=== PATIENT | female | born 1950 | race Caucasian/White ===

== ENCOUNTER 2017-06-01 20:33 | Inpatient (IN) | payer MEDICARE, OTHER ==
[2017-06-01 21:40] VITALS: BP 178/83; PULSE 99; TEMP 99.7; O2SAT 92
[2017-06-01] MEDS ORDERED: ALUMINUM/MAGNESIUM/SIMETH 30 ML CUP PO PRN (22:15)
[2017-06-01] MEDS ORDERED: diphenhydrAMINE HCL 50 MG CAP - HS PRN PO (22:15)
[2017-06-01] MEDS ORDERED: diphenhydrAMINE HCL 50 MG/ML VIAL - HS PRN IM (22:15)
[2017-06-01] MEDS ORDERED: MAGNESIUM HYDROXIDE SUSP 30 ML CUP PO PRN (22:15)
[2017-06-01] MEDS ORDERED: ACETAMINOPHEN 325 MG TAB PO PRN (22:15)
[2017-06-01] MEDS ORDERED: ENALAPRILAT 1.25 MG/ML VIAL IV PUSH PRN (22:30)
[2017-06-02] MEDS: ENOXAPARIN SODIUM 100 MG/ML SYRINGE SQ SCH ×3 (04:09→20:32)
[2017-06-02 05:57] VITALS: BP 158/71; PULSE 96; RESP 18; TEMP 97.2; O2SAT 97
[2017-06-02] MEDS: CALCIUM CARBONATE 1.25 GM (CA 500 MG) TAB PO SCH ×2 (09:00→19:57)
[2017-06-02] MEDS: DILTIAZEM-CD 240 MG CAP ER PO SCH (09:00)
[2017-06-02] MEDS: QUEtiapine FUMARATE 25 MG TAB PO SCH ×2 (09:00→19:57)
[2017-06-02 11:21] LABS: BICARBONATE 27.6 MEQ/L (21.0-32.0); CREATININE 0.39 MG/DL (0.50-1.00)
--- NOTE | 2017-06-02 11:34 | HHI.HP ---
Provisional Diagnosis Admission Date Jun 01, 2017 at 21:40 [place] I. Unspecified mood disorder Certification of Person's Competence To Provide Express and Informed Consent I have personally examined Concha Monroy , a person being served at [facility] on, Jun 02, 2017 11:15. Express and informed consent means consent voluntarily given in writing, by a competent person, after sufficient explanation and disclosure of the subject matter involved to enable the person to make a knowing and willful decision without any element of force, fraud, deceit, duress, or other form of constraint or coercion. This person is 18 years of age or older, is not now known to be incompetent to consent to treatment with a guardian advocate, and does not have a health care surrogate or proxy currently making medical treatment decisions. I have found this person to be one of the following: [] Competent to provide express and informed consent, as defined above, for voluntary admission to this facility and is competent to provide express and informed consent for treatment. He/she has the consistent capacity to make well reasoned, willful, and knowing decisions concerning his or her medical or mental health treatment. The person fully and consistently understands the purpose of the admission for examination/placement and is fully capable of personally exercising all rights assured under [place] [x] Incompetent to provide express and informed consent to voluntary admission, and this is incompetent to provide express and informed consent to treatment. The person must be transferred to involuntary status and a petition for a guardian advocate filed with the Circuit Court. [] Refusing to provide express and informed consent to voluntary admission but is competent to provide express and informed consent for treatment. The person must be discharged or transferred to involuntary status. Form shall be completed within 24 hours of a person's arrival at the receiving facility and filed in the clinical record of each person: 1. Admitted on a voluntary basis 2. Permitted to provide express and informed consent to his/her own treatment 3. Allowed to transfer from involuntary to voluntary status 4. Prior to permitting a person to consent to his or her own treatment after having been previously found incompetent to consent to treatment. History of Present Illness Capacity: Lacks Capacity HPI Patient is a 67-year-old woman, unclear if for single, unemployed, unknown of domiciled with family friends or living alone, with an unclear past psychiatric history, with a past medical history significant for hypertension, recent altered mental status which she was admitted to the medical unit at [facility] after patient's daughter found patient confused and had subsequent workup and cleared medically which during admission had reported feeling depressed with thoughts of wanting to end her life and was Santos acted for the same. He should was discharged to the [facility] but return back to the ED as patient refused to walk to the facility from the vehicle. Patient was then transferred to the inpatient medical/psychiatry unit here at [facility] for further evaluation and management. As per medical records from patient's recent hospitalization patient was admitted to [facility] for altered mental status which patient had a cardiology and neurology consulted at that time and cleared by them. Patient also had brain CT done which showed chronic left striatocapsular lacunar infarct and small chronic left cerebellar infarcts. Patient also had MR angio neck, MR brain, MRA angio head which results of those studies were not found in documents. Patient was found lying in hospital bed noted to have psychomotor retardation, speech latency, disorganized on interview , although was able to answer concrete questioning. Patient states that she is currently in [place], alert and oriented only to person at this time. Patient reports that she is living with the person named Giorgio which is her significant other than later stated that he is in group home. Patient also wasn't able to mention that she has 2 children, Ayleen and Jose Luis whom she cannot remember their age. Patient was not able to continue to provide any significant or relevant history she is a poor historian, noted to be confused and at times making nonsensical statements. At this time patient is unable to express further regarding to her depression or having suicidal ideations at this time due to her disorganization. Family psychiatric history: Unable to assess this patient at this time is a poor historian and disorganized Past psychiatric history: Unable to assess this patient at this time is a poor historian and disorganized Substance use history: Unable to assess this patient at this time is a poor historian and disorganized Past medical history: Hypertension as per patient, as per record previous CVA as noted in head CT Allergies: Unknown as patient was unable to provide history Social history: Patient reports be unemployed, single with significant other named Giorgio although this information may not be accurate due to patient's current confusion Review of Systems Except as stated in HPI: all other systems reviewed are Neg Past Psych History Psychological trauma history Unable to assess at this time due to the patient's confusion and disorganization Violence risk - others (6 mos) Low Violence risk - self (6 mos) Elevated due to recent report patient having thoughts of wanting to end her life Substance Abuse History Drugs/Alcohol past 12 months Unable to assess at this time due to the patient's confusion and disorganization Past Family Social History Current Medications Medications (Trade) Dose Ordered Sig/Tru Route Start Time Stop Time Status Last Admin (Ativan) 0.5 mg Q12H PRN PO 06/01/17 22:15 (Ativan Inj) 0.5 mg Q12H PRN IM 06/01/17 22:15 (Atarax) 50 mg Q6H PRN PO 06/01/17 22:15 (Benadryl) 50 mg Q6H PRN PO 06/01/17 22:15 (Benadryl Inj) 50 mg Q6H PRN IM 06/01/17 22:15 (Benadryl) 50 mg HS PRN PO 06/01/17 22:15 (Benadryl Inj) 50 mg HS PRN IM 06/01/17 22:15 (Tylenol) 650 mg Q4H PRN PO 06/01/17 22:15 (Milk Of Magnesia Liq) 30 ml DAILY PRN PO 06/01/17 22:15 (Mag-Al Plus Susp Liq) 30 ml Q6H PRN PO 06/01/17 22:15 (Oscal) 500 mg BID PO 06/02/17 09:00 (Cardizem Cd) 240 mg DAILY PO 06/02/17 09:00 (Lovenox Inj) 100 mg Q12H SQ 06/01/17 23:00 06/02/17 04:09 (SEROquel) 50 mg BID PO 06/02/17 09:00 (Vasotec Inj) 1.25 mg Q6H PRN IV PUSH 06/01/17 22:30 Family Psych History Unable to assess this patient at this time is a poor historian and disorganized Social History Patient reports be unemployed, single with significant other named Edward although this information may not be accurate due to patient's current confusion Patient's Strengths (min. 2) Verbal and communicative Physical Exam Patient not noted to be in acute distress, no gross motor abnormalities, no tremors or EPS, noted psychomotor retardation. Vital Signs Vital Signs Date Time Temp Pulse Resp B/P (MAP) Pulse Ox O2 Delivery O2 Flow Rate FiO2 06/02/17 05:57 97.2 96 18 158/71 (100) 97 I/O 06/02/17 06/02/17 06/03/17 08:00 16:00 00:00 Intake Total 0 ml Balance 0 ml Lab Results Test 06/02/17 10:30 Mental Status Examination Appearance: Disheveled Orientation: Person Speech: Hesitant, Slow, Other (poverty of speech) Fund of Knowledge: Poor Attention and Concentration: Inadequate Memory: Impaired Mood: Other Affect: Flat Thought Process & Associations: Disorganized, Other (concrete) Thought Content: Thought blocking, Other (nonsensical statements at times) Hallucination Type: Other (unable to assess at this time due to patient's confusion) Delusion Type: Other (unable to assess at this time due to patient's confusion) Suicidal Ideation: Yes (endorsed previously by this time unable to assess current suicidal ideations due to patient's confusion) Suicidal Plan: No Suicidal Intention: No Homicidal Ideation: No Homicidal Plan: No Homicidal Intention: No Insight: Poor Judgment: Poor Assessment & Plan Problem List: (1) Unspecified mood [affective] disorder ICD Codes: F39 - Unspecified mood [affective] disorder Assessment & Plan Estimated LOS: 5-7 days. Patient is a 67-year-old woman who with an unclear past psychiatric history, recently admitted to the medical unit at [facility] for altered mental status, had medical workup with no significant findings aside from old cerebral infarcts on imaging, was transferred to the inpatient psychiatry unit for further evaluation and management. Patient this time continues to be noted to be confused alert and oriented only to person, very concrete thinking making nonsensical statements at disorganized. Will order EEG consult neurology as well as hospitalist consult to assess for possible medical etiologies contributing to her altered mental status. Labs pending. Continue quetiapine 50 mg by mouth twice a day. Collateral information pending from family. Petition for involuntary hospitalist restarted, will request second opinion. Discharge planning in progress Discharge Planning Patient to be discharged back to her residence once medically and psychiatrically cleared Chucky Resendiz MD Jun 02, 2017 11:33
[2017-06-02 11:36] LABS: CHOLESTEROL/ HDL RATIO 5.31 RATIO
--- NOTE | 2017-06-02 14:19 | EKG ---
Date Performed: 06/02/2017 Time Performed: 07:11:25 PTAGE: 67 years EKG: SINUS TACHYCARDIA PATTERN CONSISTENT WITH PULMONARY DISEASE LEFT ANTERIOR FASCICULAR BLOCK ABNORMAL ECG NO PREVIOUS TRACING DOCTOR: Miguel Angel Stone Interpretating Date/Time 06/02/2017 14:18:10
--- NOTE | 2017-06-02 14:32 | PD.CONS ---
[facility] Request[facility] By Psychiatry team Reason for Consult Assist with medical management Primary Care Physician Vannessa Campos D.O. Diagnoses: History of Present Illness Patient is a 67 year old female with primary medical history of A. fib, DVT in the lower extremity, HTN, CVA who came into the hospital as a transfer from [facility] for confusion, altered mental status and thoughts of ending her life. Patient seen and examined today. Daughter at the bedside. Daughter is to primary provider of medical history as patient continues to have some altered mental status. Patient has A. fib and DVT and states that she was on Eliquis for it. Patient in the past was noted to have hallucination, talking to her relative/sister about things that are nonexistent. As per daughter, patient has had depression and has been suffering from depression and anxiety secondary to the passing of her about couple of years back on [place]. As per daughter, they have noticed that the patient stopped taking Eliquis and that's when the change in her mental status has worsened. States that the mental status has worsened since that they brought her to [facility]. Daughter states that [facility] they have found that with the MRI she has multiple mini strokes that are not acute. They also did have echocardiogram and EKGs. She was also cleared by home health billing specialist and neurologist of [facility]. Daughter says that patient is more lucid today compared to previous days. Patient is lying in bed EEG is being placed on her head. Patient is awake and alert. Patient oriented to name, birthdate. Does not know where she is at or the year it is states it is 1999. Patient is able to follow some commands but has a notable lag with her response. States that she does not have any headaches but reports dizziness when she closed her eyes she feels that the room is somewhat spinning. She denies any auditory or visual hallucinations. Patient is unable tell to daughter's name, but recognizes it is her daughter. Denies any chest pain, palpitations. Denies shortness of breath or dyspnea. Denies fevers or chills, nausea, vomiting, diarrhea. Daugther thinks that she is allergic to Eliquis because she was unable to take it and she had altered mental status but then [facility] given to her and she had an episode where in she was slumped in the corner unable to respond and with more altered mental status, paranoia, psychosis. Review of Systems ROS Limitations: Poor Historian Past Family Social History Allergies: Coded Allergies: apixaban (Unverified Allergy, Unknown, Hallucinations, 06/02/17) Daughter states that after being off of the medication and was initiated back at [facility], patient had increase mental status change including paranoaia, hallucination Past Medical History HTN HLD A. fib DVT right lower extremity CVA found on head CT MRI at [facility] Past Surgical History Parathyroidectomy 2 C-sections Active Ordered Medications Current Medications Medications (Trade) Dose Ordered Sig/Tru Route Start Time Stop Time Status Last Admin (Ativan) 0.5 mg Q12H PRN PO 06/01/17 22:15 (Ativan Inj) 0.5 mg Q12H PRN IM 06/01/17 22:15 (Atarax) 50 mg Q6H PRN PO 06/01/17 22:15 (Benadryl) 50 mg Q6H PRN PO 06/01/17 22:15 (Benadryl Inj) 50 mg Q6H PRN IM 06/01/17 22:15 (Benadryl) 50 mg HS PRN PO 06/01/17 22:15 (Benadryl Inj) 50 mg HS PRN IM 06/01/17 22:15 (Tylenol) 650 mg Q4H PRN PO 06/01/17 22:15 (Milk Of Magnesia Liq) 30 ml DAILY PRN PO 06/01/17 22:15 (Mag-Al Plus Susp Liq) 30 ml Q6H PRN PO 06/01/17 22:15 (Oscal) 500 mg BID PO 06/02/17 09:00 (Cardizem Cd) 240 mg DAILY PO 06/02/17 09:00 (Lovenox Inj) 100 mg Q12H SQ 06/01/17 23:00 06/02/17 04:09 (SEROquel) 50 mg BID PO 06/02/17 09:00 (Vasotec Inj) 1.25 mg Q6H PRN IV PUSH 06/01/17 22:30 Family History Father has brain aneurysm Grandmother has multiple stroke Social History Denies alcohol use Denies tobacco use Denies illicit drug use Physical Exam Vital Signs Vital Signs Date Time Temp Pulse Resp B/P (MAP) Pulse Ox O2 Delivery O2 Flow Rate FiO2 06/02/17 05:57 97.2 96 18 158/71 (100) 97 06/01/17 21:40 99.7 99 178/83 (114) 92 Physical Exam GENERAL: This is a well-nourished, well-developed patient, in no apparent distress. SKIN: Warm and dry. HEAD: Atraumatic. Normocephalic. No temporal or scalp tenderness. EYES: Pupils equal round and reactive. Extraocular motions intact. No scleral icterus. No injection or drainage. ENT: Nose without bleeding. Throat without erythema. Uvula midline. Airway patent. NECK: Trachea midline. No JVD or lymphadenopathy. Supple. CARDIOVASCULAR: Irregular rate and rhythm without murmurs, gallops, or rubs. RESPIRATORY: Clear to auscultation. Breath sounds equal bilaterally. No wheezes , rales, or rhonchi. GASTROINTESTINAL: Abdomen soft, non-tender, nondistended. No guarding. Bowel sounds active 4. MUSCULOSKELETAL: Extremities without clubbing, cyanosis, or edema. NEUROLOGICAL: Awake and alert. Oriented to self only. THOMAS weakly. Minimal verbalization. 1-2 words answer. Lags with commands. Laboratory Laboratory Tests Test 06/02/17 10:30 Blood Urea Nitrogen 24 Creatinine 0.39 Random Glucose 108 Calcium Level 9.0 Sodium Level 144 Potassium Level 3.3 Chloride Level 109 Carbon Dioxide Level 27.6 Anion Gap 7 Estimat Glomerular Filtration Rate 164 Ammonia 31 Total Creatine Kinase 502 Creatine Kinase MB 5.2 Creatine Kinase MB % 1.0 Triglycerides Level 111 Cholesterol Level 154 LDL Cholesterol 103 HDL Cholesterol 29.0 Cholesterol/HDL Ratio 5.31 Thyroid Stimulating Hormone 3rd Gen 2.150 Result Diagram: 06/02/17 1030 Assessment and Plan Problem List: (1) HTN (hypertension) ICD Code: I10 - Essential (primary) hypertension (2) CVA (cerebral vascular accident) ICD Code: I63.9 - Cerebral infarction, unspecified (3) Chronic a-fib ICD Code: I48.2 - Chronic atrial fibrillation Assessment and Plan Patient is a 67 year old female with primary medical history of A. fib, DVT in the lower extremity, HTN, CVA who came into the hospital as a transfer from [facility] for confusion, altered mental status and thoughts of ending her life. Encephalopathy, acute CT at [facility] - showed chronic left striatocapsular lacunar infarct and small chronic left cerebellar infarcts (review of notes) - Daughter states that MR I of the brain and MRA has been done, Will obtain records from [facility] - Change in mental status with increasing hallucinations and psychosis also been transiently lost of motion and being stump over the corner. Highly unlikely that eliquis may have caused increase psychosis or AMS. There is a possibility that patient may have mini strokes due to not taking Eliquis for several days prior to being hospitalized at [facility]. - Neurology consulted for further evaluation and recommendations. - EEG ordered follow-up results - Neurochecks every 4 hours - PT eval and treat - Speech Therapy eval and treat - Ammonia level 31, check UA, check labs in AM. A. fib, chronic HTN DVT - Echocardiogram was done at [facility], will obtain records - EKG reviewed by ST sai 111 HR - Previously on Eliquis, [id number] risk score 5 (female, >65, HTN, Hx DVT) - Continue with diltiazem 240 mg daily, enalaprilat PRN - Full dose Lovenox 100 g every 12 hours - Start statin, if LFTS are WNL. check LFTs. LDL 103, HDL 29 Hypokalemia - Replace potassium - Monitor potassium levels DVT prop Lovenox Code Status Full code Discussed Condition With Patient, daughter, nursing Marine Dang Jun 02, 2017 14:32
[2017-06-02 15:22] LABS: ALBUMIN 2.8 GM/DL (3.4-5.0); DIRECT BILIRUBIN ADULT 0.4 MG/DL (0.0-0.2)
[2017-06-02 15:24] LABS: INDIRECT BILIRUBIN 0.5 MG/DL (0.0-0.8); TOTAL BILIRUBIN ADULT 0.9 MG/DL (0.2-1.0); TOTAL PROTEIN 7.1 GM/DL (6.4-8.2)
[2017-06-02] MEDS ORDERED: POTASSIUM CHLORIDE 25 MEQ EFFERVESCENT TAB PO ONE (16:00)
[2017-06-02 16:39] LABS: HEMATOCRIT 43.1 % (35.0-46.0); HEMOGLOBIN 14.6 GM/DL (11.6-15.3); MEAN CORPUSCULAR HEMOGLOBIN 29.8 PG (27.0-34.0); MEAN CORPUSCULAR HGB CONC 33.8 % (32.0-36.0); MEAN PLATELET VOLUME 7.6 FL (7.0-11.0); PLATELET COUNT 274 TH/MM3 (150-450); RED CELL DISTRIBUTION WIDTH 12.5 % (11.6-17.2)
[2017-06-02 16:48] LABS: HEMOGLOBIN A1C 4.9 % (4.3-6.0)
--- NOTE | 2017-06-02 17:27 | MB ---
cc: JEFF BOURGEOIS DATE OF CONSULTATION: 06/02/2017 REASON FOR CONSULTATION: This 67-year-old woman with a history of TIAs was put on Eliquis in the past and then about a month after that according to the nursing staff had trouble, became confused and also started hallucinating. She is a 67-year-old woman with a history of hypertension went to [facility] after the daughter found her confused. Evidently cleared medically and brought over here. She went to a psych center return back to the emergency department refused to walk to the facility from the vehicle and came into [place]. TESTING: A CT showed a left old lacunar infarct and some cerebellar infarcts. MRA of the neck MRI of the brain MRA [place] of [place] were done but results are not here. SOCIAL HISTORY: Evidently a few years ago. Evidently she is unemployed, single. MEDICATIONS 1. Os-Ramu. 2. Cardizem. 3. Seroquel 50 b.i.d. 4. Lovenox 100 q. 12 5. Vasotec. 6. Ativan. 7. Atarax. 8. Benadryl p.r.n. REVIEW OF SYSTEMS Review of systems really unable to be obtained from the patient, nor can I obtain a social history or family history.] PHYSICAL EXAMINATION: VITAL SIGNS: On exam afebrile 96.0, respirations 18, blood pressure 150/71. HEART: Regular rhythm and rate and I did not detect a murmur. There were no carotid bruits. NEUROLOGIC EXAMINATION: The visual moore are full. Extraocular is are intact. Pupils are equal. No nystagmus. Face is symmetric. She moved all her extremities well. Toes downgoing bilaterally. DTRs are trace. Her speech is hard to say. She does follow some commands for me other times will not she last be some on questions. She does tell me her name. She shows me her left thumb. She can name my glasses but goes through some other questions for me before she does that. She is not definitely aphasic as far as I can tell does appear primarily psychiatric. LABORATORY DATA Basic metabolic profile essentially normal. Liver function tests mildly elevated 53. CPK 500, total protein 7.1, albumin is low at 2.8. LDL cholesterol 103. TSH is normal. IMPRESSION Probably more then likely a primary psychiatric problems. There was a suggestion of the nursing staff that maybe there was a thought that the Lela start her psychosis. I think that is unlikely. She should get a MRI of the brain and EEG hear along with some blood work. We can try to track down what her MRA showed the past. We will follow while she is in the hospital but overall all the exam was nonfocal here and there was nothing that stuck out to me as a primary neurological problem. I had a maura that was confused one-time, and what was wrong with him was he had rheumatoid arthritis and his sed rate was a little bit up. I want to also check some blood work on him including paraneoplastic screen. I did leave a message with the daughter to call me for further history. MD RENUKA Mccall/hany /4:10 PM /4:43 PM
[2017-06-02 18:00] VITALS: BP 171/86; PULSE 110; RESP 17; TEMP 97.6; O2SAT 94
[2017-06-02 18:49] LABS: C-REACTIVE PROTEIN 4.4 MG/DL (0.00-0.30)
[2017-06-02 20:22] LABS: AUTOMATED NEUTROPHIL # 7.8 TH/MM3 (1.8-7.7); BASOPHIL % 0.4 % (0.0-2.0); EOSINOPHIL % 0.2 % (0.0-4.0); HEMATOCRIT 41.5 % (35.0-46.0); HEMOGLOBIN 14.3 GM/DL (11.6-15.3); LYMPH % 6.5 % (9.0-44.0); LYMPHOCYTE # 0.6 TH/MM3 (1.0-4.8); MEAN CELL VOLUME 88.2 FL (80.0-100.0); MEAN CORPUSCULAR HEMOGLOBIN 30.3 PG (27.0-34.0); MEAN CORPUSCULAR HGB CONC 34.4 % (32.0-36.0); MEAN PLATELET VOLUME 8.3 FL (7.0-11.0); MONO % 7.6 % (0.0-8.0); MONOCYTE # 0.7 TH/MM3 (0-0.9); NEUT % 85.3 % (16.0-70.0); PLATELET COUNT 299 TH/MM3 (150-450); RED BLOOD COUNT 4.71 MIL/MM3 (4.00-5.30); RED CELL DISTRIBUTION WIDTH 12.5 % (11.6-17.2); WHITE BLOOD COUNT 9.2 TH/MM3 (4.0-11.0)
[2017-06-02] MEDS: LORazepam 0.5 MG TAB age > 65 yrs PO PRN (20:38)
[2017-06-02] MEDS: hydrOXYzine HCL 50 MG TAB PO PRN (20:38)
[2017-06-02 20:58] LABS: RHEUMATOID FACTOR SCREEN POSITIVE (NEGATIVE)
[2017-06-03 05:44] VITALS: BP 151/65; PULSE 102; RESP 16; TEMP 97.7; O2SAT 96
[2017-06-03 08:14] LABS: BICARBONATE 28.8 MEQ/L (21.0-32.0); CALCIUM 8.7 MG/DL (8.5-10.1); CREATININE 0.51 MG/DL (0.50-1.00)
--- NOTE | 2017-06-03 08:29 | MG ---
cc: CORRY MERCEDES M.D. Lab No: [id number] Date: 06/03/2017 Age: 67 Sex: F Race: DATE OF 1950 AGE [age] years old REFERRING PHYSICIAN MD Martín ROOM 401-A NOTE With photic stimulation only. Awake. HISTORY This is a patient who was Santos Acted due to depression and suicidal ideation. History of hypertension. MEDICATIONS Lovenox only. DESCRIPTION OF RECORD There is quite a bit of muscle movement from the initial portion of the EEG. Note that the patient is awake. There may be some slowing in the theta range, some artifact in the EKG, some questionable PVCs. Washcloth put over the patient's eyes. Has no epileptic activity. Photic stimulation elicited a minimal driving response. IMPRESSION Mild background slowing consistent with encephalopathic process. No evidence of any epileptiform features. Clinical correlation. Corry Mercedes MD DF/GRICELDA /7:59 AM /8:04 AM
[2017-06-03] MEDS: CALCIUM CARBONATE 1.25 GM (CA 500 MG) TAB PO SCH ×2 (09:28→20:28)
[2017-06-03] MEDS: DILTIAZEM-CD 240 MG CAP ER PO SCH (09:28)
[2017-06-03] MEDS: QUEtiapine FUMARATE 25 MG TAB PO SCH ×2 (09:29→20:28)
[2017-06-03] MEDS: POTASSIUM BICARBONATE 25 MEQ EFFERVESCENT TAB PO ONE ×2 (09:30→09:47)
--- NOTE | 2017-06-03 11:19 | PD.PSY.CON ---
Provisional Diagnosis Admission Date Jun 01, 2017 at 21:40 [place] I. Unspecified psychosis vs Unspecified mood disorder Windsor II. Deferred [place] III. Hypertension History of Present Illness Service Psychiatry Consult Requested By Dr. Resendiz Reason for Consult Second opinion Primary Care Physician Vannessa Campos D.O. HPI Patient is a 67-year-old woman, unclear if for single, unemployed, unknown of domiciled with family friends or living alone, with an unclear past psychiatric history, with a past medical history significant for hypertension, recent altered mental status which she was admitted to the medical unit at [facility] after patient's daughter found patient confused and had subsequent workup and cleared medically which during admission had reported feeling depressed with thoughts of wanting to end her life and was Santos acted for the same. He should was discharged to the [facility] but return back to the ED as patient refused to walk to the facility from the vehicle. Patient was then transferred to the inpatient medical/psychiatry unit here at [facility] for further evaluation and management. As per medical records from patient's recent hospitalization patient was admitted to [facility] for altered mental status which patient had a cardiology and neurology consulted at that time and cleared by them. Patient also had brain CT done which showed chronic left striatocapsular lacunar infarct and small chronic left cerebellar infarcts. Patient also had MR angio neck, MR brain, MRA angio head which results of those studies were not found in documents. Patient was found lying in hospital bed noted to have psychomotor retardation, speech latency, disorganized on interview , although was able to answer concrete questioning. Patient states that she is currently in [place], alert and oriented only to person at this time. Patient reports that she is living with the person named Giorgio which is her significant other than later stated that he is in retirement. Patient also wasn't able to mention that she has 2 children, Ayleen and Jose Luis whom she cannot remember their age. Patient was not able to continue to provide any significant or relevant history she is a poor historian, noted to be confused and at times making nonsensical statements. At this time patient is unable to express further regarding to her depression or having suicidal ideations at this time due to her disorganization. The patient is a 67 years old woman, domiciled alone in [facility], single, unemployed, without any previous psychiatric history, medical history of hypertension, who was transferred to [place] from for the hospital due to confusion, psychotic thought processes and behavior, also suicidal ideation. Consulted to me for second opinion. On psychiatric evaluation patient is found in her room, she is in a kind of perplexed state, stating repetitively that she is afraid of her daughter, afraid of this place, afraid of the people, "afraid of talking, afraid you can read my mind". In spite of multiple attempts and redirection a she continues to be perseverative around in the idea of being afraid. Patient is unable to answer appropriately most of my questions. She seems to be very confused, with flat affect, internally stimulated. The patient knows that she is in the hospital, but she is disoriented in time. Review of Systems Except as stated in HPI: all other systems reviewed are Neg Past Family Social History Coded Allergies: apixaban (Unverified Allergy, Unknown, Hallucinations, 06/02/17) Daughter states that after being off of the medication and was initiated back at [facility], patient had increase mental status change including paranoaia, hallucination Current Medications Medications (Trade) Dose Ordered Sig/Tru Route Start Time Stop Time Status Last Admin (Ativan) 0.5 mg Q12H PRN PO 06/01/17 22:15 06/02/17 20:38 (Ativan Inj) 0.5 mg Q12H PRN IM 06/01/17 22:15 (Atarax) 50 mg Q6H PRN PO 06/01/17 22:15 06/02/17 20:38 (Benadryl) 50 mg Q6H PRN PO 06/01/17 22:15 (Benadryl Inj) 50 mg Q6H PRN IM 06/01/17 22:15 (Benadryl) 50 mg HS PRN PO 06/01/17 22:15 (Benadryl Inj) 50 mg HS PRN IM 06/01/17 22:15 (Tylenol) 650 mg Q4H PRN PO 06/01/17 22:15 (Milk Of Magnesia Liq) 30 ml DAILY PRN PO 06/01/17 22:15 (Mag-Al Plus Susp Liq) 30 ml Q6H PRN PO 06/01/17 22:15 (Oscal) 500 mg BID PO 06/02/17 09:00 06/03/17 09:28 (Cardizem Cd) 240 mg DAILY PO 06/02/17 09:00 06/03/17 09:28 (Lovenox Inj) 100 mg Q12H SQ 06/01/17 23:00 06/02/17 20:32 (Vasotec Inj) 1.25 mg Q6H PRN IV PUSH 06/01/17 22:30 (SEROquel) 75 mg BID PO 06/03/17 09:00 06/03/17 09:29 Family Psych History Patient denies family medical history Social History Patient was born and raised in [place], she lives alone in [facility], single, unemployed Patient's Strengths (min. 2) Verbal and communicative Physical Exam Vital Signs Vital Signs Date Time Temp Pulse Resp B/P (MAP) Pulse Ox O2 Delivery O2 Flow Rate FiO2 06/03/17 05:44 97.7 102 16 151/65 (93) 96 I/O 06/03/17 06/03/17 06/04/17 08:00 16:00 00:00 Intake Total 120 ml Balance 120 ml Lab Results Test 06/02/17 16:30 06/02/17 17:06 06/02/17 18:06 06/03/17 07:13 White Blood Count 9.0 TH/MM3 Red Blood Count 4.90 MIL/MM3 Hemoglobin 14.6 GM/DL Hematocrit 43.1 % Mean Corpuscular Volume 88.0 FL Mean Corpuscular Hemoglobin 29.8 PG Mean Corpuscular Hemoglobin Concent 33.8 % Red Cell Distribution Width 12.5 % Platelet Count 274 TH/MM3 Mean Platelet Volume 7.6 FL Blood Gas Puncture Site RT RADIAL Blood Gas Patient Temperature 98.6 Blood Gas HCO3 26 mmol/L Blood Gas Base Excess 2.4 mmol/L Blood Gas Oxygen Saturation 94 % Arterial Blood pH 7.47 Arterial Blood Partial Pressure CO2 36 mmHg Arterial Blood Partial Pressure O2 78 mmHg Arterial Blood Oxygen Content 19.3 Vol % Arterial Blood Carboxyhemoglobin 1.0 % Arterial Blood Methemoglobin 1.1 % Blood Gas Hemoglobin 14.6 G/DL Blood Gas Inspired Oxygen 21 % Erythrocyte Sedimentation Rate 42 mm/hr Ammonia 24 MCMOL/L C-Reactive Protein 4.40 MG/DL Total Protein 7.6 GM/DL Rheumatoid Factor Screen POSITIVE Rheumatoid Factor Titer 16.4 IU/ML Rapid Plasma Reagin Titer 1:4 Rapid Plasma Reagin REACTIVE Blood Urea Nitrogen 20 MG/DL Creatinine 0.51 MG/DL Random Glucose 126 MG/DL Calcium Level 8.7 MG/DL Sodium Level 141 MEQ/L Potassium Level 2.8 MEQ/L Chloride Level 103 MEQ/L Carbon Dioxide Level 28.8 MEQ/L Anion Gap 9 MEQ/L Estimat Glomerular Filtration Rate 121 ML/MIN Mental Status Examination Appearance: Disheveled Orientation: Person Speech: Hesitant, Slow, Other (poverty of speech) Fund of Knowledge: Poor Attention and Concentration: Inadequate Memory: Impaired Mood: Other Affect: Flat Thought Process & Associations: Disorganized, Other (concrete) Thought Content: Thought blocking, Other (nonsensical statements at times) Hallucination Type: Other (unable to assess at this time due to patient's confusion) Delusion Type: Other (unable to assess at this time due to patient's confusion) Suicidal Ideation: Yes (endorsed previously by this time unable to assess current suicidal ideations due to patient's confusion) Suicidal Plan: No Suicidal Intention: No Homicidal Ideation: No Homicidal Plan: No Homicidal Intention: No Insight: Poor Judgment: Poor Assessment & Plan Problem List: (1) Unspecified mood [affective] disorder ICD Codes: F39 - Unspecified mood [affective] disorder Assessment & Plan: I have seen and examined this patient, reviewed documentation, discuss the patient with Dr. Resendiz, I agree and concur with this assessment and plan. Assessment & Plan Estimated LOS: Michelet Shepard MD Jun 03, 2017 11:19
[2017-06-03] MEDS: ENOXAPARIN SODIUM 100 MG/ML SYRINGE SQ SCH ×2 (11:45→21:52)
[2017-06-03 12:10] LABS: HEPATITIS A AB IGM NEGATIVE (NEGATIVE); HEPATITIS B CORE AB IGM NEGATIVE (NEGATIVE); HEPATITIS B SURFACE ANTIGEN NEGATIVE (NEGATIVE); HEPATITIS C AB IgG NEGATIVE (NEGATIVE)
--- NOTE | 2017-06-03 12:58 | HHI.PR ---
Subjective Remarks Follow-up visit A. fib, DVT, HTN, CVA, encephalopathy. Patient seen and examined today sitting in bed. Patient is been mumbling. States her name is Concha and her last name is H&H. Patient is unaware of her location. She is able to follow some commands but does not able to respond to questions regarding herself. Occasional smiles. Minimal verbalization. Objective Vitals Vital Signs Date Time Temp Pulse Resp B/P (MAP) Pulse Ox O2 Delivery O2 Flow Rate FiO2 06/03/17 05:44 97.7 102 16 151/65 (93) 96 06/02/17 18:00 97.6 110 17 171/86 (114) 94 I/O 06/02/17 06/02/17 06/02/17 06/03/17 06/03/17 06/03/17 07:00 15:00 23:00 07:00 15:00 23:00 Intake Total 0 ml 480 ml 120 ml Balance 0 ml 480 ml 120 ml Intake Oral 0 ml 480 ml 120 ml # Voids 1 2 Result Diagram: 06/02/17 1630 06/03/17 0713 Objective Remarks GENERAL: This is a well-nourished, well-developed patient, in no apparent distress. SKIN: Warm and dry. HEAD: Atraumatic. Normocephalic. No temporal or scalp tenderness. EYES: Pupils equal round and reactive. Extraocular motions intact. No scleral icterus. No injection or drainage. ENT: Nose without bleeding. Throat without erythema. Uvula midline. Airway patent. NECK: Trachea midline. No JVD or lymphadenopathy. Supple. CARDIOVASCULAR: Irregular rate and rhythm without murmurs, gallops, or rubs. RESPIRATORY: Clear to auscultation. Breath sounds equal bilaterally. No wheezes , rales, or rhonchi. GASTROINTESTINAL: Abdomen soft, non-tender, nondistended. No guarding. Bowel sounds active 4. MUSCULOSKELETAL: Extremities without clubbing, cyanosis, or edema. NEUROLOGICAL: Awake and alert. Oriented to self only. THOMAS weakly. Minimal verbalization. 1-2 words answer. Lags with commands. A/P Problem List: (1) HTN (hypertension) ICD Code: I10 - Essential (primary) hypertension (2) CVA (cerebral vascular accident) ICD Code: I63.9 - Cerebral infarction, unspecified (3) Chronic a-fib ICD Code: I48.2 - Chronic atrial fibrillation Assessment and Plan Patient is a 67 year old female with primary medical history of A. fib, DVT in the lower extremity, HTN, CVA who came into the hospital as a transfer from [facility] for confusion, altered mental status and thoughts of ending her life. Encephalopathy, acute CT at [facility] - showed chronic left striatocapsular lacunar infarct and small chronic left cerebellar infarcts (review of notes) - Daughter states that MR I of the brain and MRA has been done, Will obtain records from [facility] - Change in mental status with increasing hallucinations and psychosis also been transiently lost of motion and being stump over the corner. Highly unlikely that eliquis may have caused increase psychosis or AMS. There is a possibility that patient may have mini strokes due to not taking Eliquis for several days prior to being hospitalized at [facility]. - Neurology consulted for further evaluation and recommendations. - EEG ordered follow-up results - Neurochecks every 4 hours - PT eval and treat - Speech Therapy eval and treat - Ammonia level 31, check UA, UA not collected. Requested KIAN Palm to recollect - Positive RPR, Positive RF, ESR elevated. Pending Neurology recommendations. Possible LP? A. fib, chronic HTN DVT - Echocardiogram was done at [facility], will obtain records - EKG reviewed by ST sai 111 HR - Previously on Eliquis, [id number] risk score 5 (female, >65, HTN, Hx DVT) - Continue with diltiazem 240 mg daily, enalaprilat PRN - Full dose Lovenox 100 g every 12 hours - LDL 103, HDL 29 - LFTS slightly elevated. Recheck in 2 days. Start statin if WNL Hypokalemia - Replace potassium. Not given yesterday. Repeat K 2.8. Replacement reordered - Monitor potassium levels DVT prop Lovenox Chest with patient, nursing Marine Dang Jun 03, 2017 12:58
[2017-06-03] MEDS ORDERED: POTASSIUM CHLORIDE 25 MEQ EFFERVESCENT TAB PO ONE (13:00)
[2017-06-03] MEDS: hydrOXYzine HCL 50 MG TAB PO PRN (13:42)
--- NOTE | 2017-06-03 14:07 | HHI.PYPN ---
Subjective Remarks Patient seen for follow-up, chart reviewed. Discussion she staff reported the patient has MRI scheduled today this pending, noted to be walking around the last any with her walker alert and oriented to person. Patient was found sitting in hospital bed team breakfast. Patient noted to be confused and disorganized stating that "Jodi is going off" responding to internal stimuli, continues to repeat "does not the answer". Patient states that Jodi her daughter is telling her "help 911, 911". Patient unable to engage in rest of interview she is perseverative on saying these remarks. Patient continues to be followed medical and neurology consult. Recent labwork reported positive RPR titers. Review of Systems Except as stated in HPI: all other systems reviewed are Neg Mental Status Examination Appearance: Disheveled Orientation: Person Speech: Hesitant, Slow, Other (poverty of speech) Language: Other (making nonsensical statements) Fund of Knowledge: Poor Attention and Concentration: Inadequate Memory: Impaired Mood: Other Affect: Flat Thought Process & Associations: Disorganized, Other (concrete) Thought Content: Thought blocking, Other (nonsensical statements at times) Hallucination Type: Other (unable to assess at this time due to patient's confusion) Delusion Type: Other (unable to assess at this time due to patient's confusion) Suicidal Ideation: Yes (endorsed previously by this time unable to assess current suicidal ideations due to patient's confusion) Suicidal Plan: No Suicidal Intention: No Homicidal Ideation: No Homicidal Plan: No Homicidal Intention: No Insight: Poor Judgment: Poor Results Labs Labs reviewed Test 06/02/17 16:30 06/02/17 17:06 06/02/17 18:06 06/03/17 07:13 White Blood Count 9.0 TH/MM3 Red Blood Count 4.90 MIL/MM3 Hemoglobin 14.6 GM/DL Hematocrit 43.1 % Mean Corpuscular Volume 88.0 FL Mean Corpuscular Hemoglobin 29.8 PG Mean Corpuscular Hemoglobin Concent 33.8 % Red Cell Distribution Width 12.5 % Platelet Count 274 TH/MM3 Mean Platelet Volume 7.6 FL Blood Gas Puncture Site RT RADIAL Blood Gas Patient Temperature 98.6 Blood Gas HCO3 26 mmol/L Blood Gas Base Excess 2.4 mmol/L Blood Gas Oxygen Saturation 94 % Arterial Blood pH 7.47 Arterial Blood Partial Pressure CO2 36 mmHg Arterial Blood Partial Pressure O2 78 mmHg Arterial Blood Oxygen Content 19.3 Vol % Arterial Blood Carboxyhemoglobin 1.0 % Arterial Blood Methemoglobin 1.1 % Blood Gas Hemoglobin 14.6 G/DL Blood Gas Inspired Oxygen 21 % Erythrocyte Sedimentation Rate 42 mm/hr Ammonia 24 MCMOL/L C-Reactive Protein 4.40 MG/DL Total Protein 7.6 GM/DL Rheumatoid Factor Screen POSITIVE Rheumatoid Factor Titer 16.4 IU/ML Rapid Plasma Reagin Titer 1:4 Rapid Plasma Reagin REACTIVE Blood Urea Nitrogen 20 MG/DL Creatinine 0.51 MG/DL Random Glucose 126 MG/DL Calcium Level 8.7 MG/DL Sodium Level 141 MEQ/L Potassium Level 2.8 MEQ/L Chloride Level 103 MEQ/L Carbon Dioxide Level 28.8 MEQ/L Anion Gap 9 MEQ/L Estimat Glomerular Filtration Rate 121 ML/MIN Hepatitis A IgM Antibody NEGATIVE Hepatitis B Surface Antigen NEGATIVE Hepatitis B Core IgM Antibody NEGATIVE Hepatitis C Antibody NEGATIVE Vitals/IOs Vital Signs Date Time Temp Pulse Resp B/P (MAP) Pulse Ox O2 Delivery O2 Flow Rate FiO2 06/03/17 05:44 97.7 102 16 151/65 (93) 96 Intake and Output 06/03/17 06/03/17 06/04/17 08:00 16:00 00:00 Intake Total 120 ml Balance 120 ml Assessment & Plan Problem List: (1) Unspecified mood [affective] disorder ICD Codes: F39 - Unspecified mood [affective] disorder Assessment & Plan Patient at this time continues to be noted to be confused and disorganized and able to interact adequately during interview. Patient appeared to be responding to internal stimuli and hearing the voice of her daughter Jodi. We' ll increase quetiapine to 75 mg by mouth twice a day psychosis. Patient to continue medical and neurological workup and continue recommendations as per primary medical team. Discharge planning in progress Justification for Cont. Inpt. At risk for further decompensation if at lower level of care Discharge Planning Patient today back to her residence when psychiatrically stable Chucky Resendiz MD Jun 03, 2017 14:07
--- NOTE | 2017-06-03 15:34 | PD.TTN ---
Patient Problems 1. Discharge planning 2. Medication compliance 3. Knowledge deficit 4. Lack of coping skills Progress Toward Goals Provider Present: Dr. Torsten Resendiz Provider Input: 06/03/2017; patient is obtaining a complete nureral work up, and medications are being adjusted Nurse(s) Present: KIAN Palm Nurse(s) Input: 06/03/2017 patient requires redirection, coaching and prompting with most of her basic and personal needs including medications Psychiatric Counselors Present: WICHO Esparza Psych Therapist Input: 06/03/2017; counselor will continue working on establishing a workable treatment plan with patient once she has stablize to determine dc needs Group Spec/RT/OT/JAIMES Present: Liborio Orozco OT Group Spec/RT/OT/JAIMES Input: 06/03/2017 Patient is unable to attend or participate with activities at this time, will reassess at a later date once stable Additional Input If and when patient has return to previous level of functioning she will be dc home if not she will require [facility] or NH placement Documentation Scribe: WICHO Esparza Sandra LMHC Jun 03, 2017 15:34
[2017-06-03] MEDS: diphenhydrAMINE HCL 50 MG/ML VIAL IM PRN (17:22)
[2017-06-03 18:13] VITALS: BP 176/88; PULSE 101; RESP 16; TEMP 98.1; O2SAT 98
[2017-06-03] MEDS: LORazepam 0.5 MG TAB age > 65 yrs PO PRN (20:28)
[2017-06-03 20:57] LABS: ALB/GLOB RATIO (SPE) 1.03 (1.39-2.23)
[2017-06-03 21:33] LABS: BACTERIA, URINE MANY /hpf; BILIRUBIN, URINE NEG (NEG); BLOOD, URINE NEG (NEG); GLUCOSE,URINE NEG (NEG); KETONE, URINE NEG (NEG); MUCUS URINE FEW /lpf (OCC); NITRITE,URINE NEG (NEG); PH, URINE 6.5 (5.0-8.5); SQUAMOUS EPITHELIAL CELL URINE <1 /hpf (0-5); URINE COLOR YELLOW (YELLW/STRAW); URINE LEUKOCYTE ESTERASE LARGE (NEG); WHITE BLOOD CELL CLUMPS FEW
[2017-06-03] MEDS: LORazepam 2 MG/ML VIAL - age > 65 yrs IM PRN (22:34)
[2017-06-04 06:11] VITALS: BP 129/60; PULSE 105; RESP 20; TEMP 97.5; O2SAT 96
[2017-06-04 06:21] LABS: BICARBONATE 28.4 MEQ/L (21.0-32.0); CALCIUM 8.5 MG/DL (8.5-10.1); CREATININE 0.46 MG/DL (0.50-1.00)
--- NOTE | 2017-06-04 08:11 | HHI.PR ---
Objective Vital Signs Date Time Temp Pulse Resp B/P (MAP) Pulse Ox O2 Delivery O2 Flow Rate FiO2 06/04/17 06:11 97.5 105 20 129/60 (83) 96 06/03/17 18:13 98.1 101 16 176/88 (117) 98 I/O 06/03/17 06/03/17 06/03/17 06/04/17 06/04/17 06/04/17 07:00 15:00 23:00 07:00 15:00 23:00 Intake Total 120 ml 280 ml 580 ml 360 ml Output Total 400 ml Balance 120 ml 280 ml 180 ml 360 ml Intake Oral 120 ml 280 ml 580 ml 360 ml Output Urine Total 400 ml # Voids 2 1 1 2 Result Diagram: 06/02/17 1630 06/04/17 0425 Objective Remarks awake alert ox3 now follows commands well moves all well sleepy but awakens speech better Assessment and Plan Assessment and Plan imp mri pend but nl last week at [facility] as was mrax2 thought to be psych there eeg neg lab shows UTI needs rx rpr pos check fta crp 4.4 much better now Scar Horton MD Jun 04, 2017 08:11
[2017-06-04] MEDS ORDERED: POTASSIUM CHLORIDE 25 MEQ EFFERVESCENT TAB PO ONE (09:00)
[2017-06-04] MEDS: CALCIUM CARBONATE 1.25 GM (CA 500 MG) TAB PO SCH ×2 (10:15→21:52)
[2017-06-04] MEDS: DILTIAZEM-CD 240 MG CAP ER PO SCH (10:15)
[2017-06-04] MEDS: QUEtiapine FUMARATE 25 MG TAB PO SCH ×2 (10:15→21:52)
[2017-06-04] MEDS: LORazepam 2 MG/ML VIAL - age > 65 yrs IM PRN (10:46)
[2017-06-04] MEDS ORDERED: HALOPERIDOL LACTATE 5 MG/ML AMP ONE ×2 (11:23→17:30)
[2017-06-04] MEDS: ENOXAPARIN SODIUM 100 MG/ML SYRINGE SQ SCH ×2 (11:44→21:51)
[2017-06-04] MEDS ORDERED: LORazepam 2 MG/ML VIAL IM ONE ×2 (12:00→18:15)
[2017-06-04 12:25] VITALS: BP 177/97; PULSE 114; RESP 16; TEMP 97.8; O2SAT 95
--- NOTE | 2017-06-04 12:48 | HHI.PR ---
Subjective Remarks Follow-up visit A. fib, DVT, HTN, CVA, encephalopathy. Patient seen and examined today lying in bed. Patient was assisted to sit up all of a sudden patient got agitated and angry attempted to throw the walker on me. She is mumbling words incomprehensible. Does not respond to any questions or commands. As per nursing, patient had a fall today and is due for an MRI. No seizures noted. Objective Vitals Vital Signs Date Time Temp Pulse Resp B/P (MAP) Pulse Ox O2 Delivery O2 Flow Rate FiO2 06/04/17 06:11 97.5 105 20 129/60 (83) 96 06/03/17 18:13 98.1 101 16 176/88 (117) 98 I/O 06/03/17 06/03/17 06/03/17 06/04/17 06/04/17 06/04/17 07:00 15:00 23:00 07:00 15:00 23:00 Intake Total 120 ml 280 ml 580 ml 360 ml 120 ml Output Total 400 ml Balance 120 ml 280 ml 180 ml 360 ml 120 ml Intake Oral 120 ml 280 ml 580 ml 360 ml 120 ml Output Urine Total 400 ml # Voids 2 1 1 2 Result Diagram: 06/02/17 1630 06/04/17 0425 Objective Remarks GENERAL: This is a well-nourished, well-developed patient, in no apparent distress. SKIN: Warm and dry. HEAD: Normocephalic. No temporal or scalp tenderness. EYES: Pupils equal round and reactive. No scleral icterus. No injection or drainage. ENT: Nose without bleeding. Airway patent. NECK: Trachea midline. CARDIOVASCULAR: Irregular rate and rhythm without murmurs, gallops, or rubs. RESPIRATORY: Breath sounds equal bilaterally. No wheezes, rales, or rhonchi. GASTROINTESTINAL: Abdomen soft, non-tender, nondistended. No guarding. Bowel sounds active 4. MUSCULOSKELETAL: Extremities without clubbing, cyanosis, or edema. NEUROLOGICAL: Awake and alert. Oriented to self only. THOMAS weakly. Minimal verbalization. Does not follow commands. A/P Problem List: (1) HTN (hypertension) ICD Code: I10 - Essential (primary) hypertension (2) CVA (cerebral vascular accident) ICD Code: I63.9 - Cerebral infarction, unspecified (3) Chronic a-fib ICD Code: I48.2 - Chronic atrial fibrillation Assessment and Plan Patient is a 67 year old female with primary medical history of A. fib, DVT in the lower extremity, HTN, CVA who came into the hospital as a transfer from [facility] for confusion, altered mental status and thoughts of ending her life. Encephalopathy, acute CT at [facility] - showed chronic left striatocapsular lacunar infarct and small chronic left cerebellar infarcts (review of notes) - Daughter states that MR I of the brain and MRA has been done, Will obtain records from [facility] - Change in mental status with increasing hallucinations and psychosis also been transiently lost of motion and being stump over the corner. Highly unlikely that eliquis may have caused increase psychosis or AMS. There is a possibility that patient may have mini strokes due to not taking Eliquis for several days prior to being hospitalized at [facility]. - Neurology consulted for further evaluation and recommendations. - EEG ordered follow-up results - Neurochecks every 4 hours - PT eval and treat - Speech Therapy eval and treat - Ammonia level 31, check UA, UA not collected. Requested RN Néstor to recollect - Positive RPR, Positive RF, ESR elevated. Pending Neurology recommendations. Treponema Pallidum ordered, suspect neurosyphillis? (+) RPR Urinary tract infection - UA positive, gram-negative rods. Patient started on Cipro. - If unable to take PO we'll possibly do IV Rocephin 3 doses. As per nursing, patient has been refusing medications. A. fib, chronic HTN DVT - Echocardiogram was done at [facility], will obtain records - EKG reviewed by , 111 HR - Previously on Eliquis, [id number] risk score 5 (female, >65, HTN, Hx DVT) - Continue with diltiazem 240 mg daily, enalaprilat PRN - Full dose Lovenox 100 g every 12 hours - LDL 103, HDL 29 - LFTS slightly elevated. Recheck in 2 days. Start statin if WNL Hypokalemia - Replace potassium. - Monitor potassium levels - Mag 2.3 DVT prop Lovenox Discussed with nursing Marine Dang Jun 04, 2017 12:48
[2017-06-04] MEDS: CIPROFLOXACIN 500 MG TAB PO SCH (13:00)
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
[2017-06-04 16:27] LABS: ANA SCREEN POS (NEG)
[2017-06-04] MEDS ORDERED: HALOPERIDOL LACTATE 5 MG/ML AMP IM ONE (18:15)
[2017-06-04 22:00] VITALS: BP 157/77; PULSE 110; RESP 17; TEMP 98.1; O2SAT 100
[2017-06-05] MEDS: CIPROFLOXACIN 500 MG TAB PO SCH ×3 (01:00→23:56)
[2017-06-05 02:00] VITALS: BP 156/92; PULSE 93; RESP 18; TEMP 96.7
[2017-06-05 06:00] VITALS: BP 157/74; PULSE 112; RESP 20; TEMP 97.3; O2SAT 95
[2017-06-05] MEDS: QUEtiapine FUMARATE 25 MG TAB PO SCH ×3 (08:05→21:04)
[2017-06-05] MEDS: DILTIAZEM-CD 240 MG CAP ER PO SCH ×2 (08:05→08:44)
[2017-06-05] MEDS: CALCIUM CARBONATE 1.25 GM (CA 500 MG) TAB PO SCH ×2 (08:05→21:04)
[2017-06-05] MEDS: LORazepam 2 MG/ML VIAL - age > 65 yrs IM PRN (08:25)
[2017-06-05] MEDS: ENOXAPARIN SODIUM 100 MG/ML SYRINGE SQ SCH ×2 (11:00→23:56)
[2017-06-05 11:31] LABS: METHYLMALONIC ACID 0.13 nmol/mL (<=0.40)
[2017-06-05 11:32] LABS: ALBUMIN 2.7 GM/DL (3.4-5.0); BICARBONATE 25.6 MEQ/L (21.0-32.0); CALCIUM 8.8 MG/DL (8.5-10.1); CREATININE 0.46 MG/DL (0.50-1.00); DIRECT BILIRUBIN ADULT 0.3 MG/DL (0.0-0.2)
[2017-06-05 11:35] LABS: INDIRECT BILIRUBIN 0.6 MG/DL (0.0-0.8); TOTAL BILIRUBIN ADULT 0.9 MG/DL (0.2-1.0); TOTAL PROTEIN 6.8 GM/DL (6.4-8.2)
[2017-06-05] MEDS ORDERED: POTASSIUM CHLORIDE 25 MEQ EFFERVESCENT TAB PO ONE (12:15)
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
[2017-06-05 18:00] VITALS: BP 144/64; PULSE 94; RESP 18; TEMP 98.4; O2SAT 98
[2017-06-05] MEDS ORDERED: HALOPERIDOL LACTATE 5 MG/ML AMP IM ONE (18:30)
[2017-06-05] MEDS ORDERED: LORazepam 2 MG/ML VIAL IM ONE (18:30)
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
[2017-06-05 20:00] VITALS: BP 151/72; PULSE 97; RESP 20; TEMP 97.9; O2SAT 97
[2017-06-05] MEDS: NYSTATIN 100,000 U/GM PWD 15 GM BTL TOPICAL SCH (21:05)
[2017-06-06] VITALS: BP 164/84; PULSE 89; RESP 18; TEMP 98.7; O2SAT 96
[2017-06-06 06:00] VITALS: BP 123/63; PULSE 105; RESP 16; TEMP 97.6; O2SAT 97
[2017-06-06] MEDS: NYSTATIN 100,000 U/GM PWD 15 GM BTL TOPICAL SCH ×3 (06:00→22:01)
[2017-06-06 08:03] LABS: ALBUMIN 2.6 GM/DL (3.4-5.0); ALT (GPT) 67 U/L (10-53); AST (GOT) 31 U/L (15-37); BICARBONATE 29.5 MEQ/L (21.0-32.0); BLOOD UREA NITROGEN 24 MG/DL (7-18); CALCIUM 8.3 MG/DL (8.5-10.1); CHLORIDE 111 MEQ/L (98-107); CREATININE 0.46 MG/DL (0.50-1.00); GLOMERULAR FILTRATION RATE 136 ML/MIN (>89); GLUCOSE,RANDOM 88 MG/DL (74-106); SODIUM (NA) 145 MEQ/L (136-145)
[2017-06-06 08:05] LABS: ALKALINE PHOSPHATASE 79 U/L (45-117); TOTAL PROTEIN 6.5 GM/DL (6.4-8.2)
[2017-06-06] MEDS: DILTIAZEM-CD 240 MG CAP ER PO SCH (09:00)
[2017-06-06] MEDS: CALCIUM CARBONATE 1.25 GM (CA 500 MG) TAB PO SCH ×2 (09:00→22:01)
[2017-06-06] MEDS: QUEtiapine FUMARATE 25 MG TAB PO SCH ×2 (09:00→22:01)
[2017-06-06] MEDS: ENOXAPARIN SODIUM 100 MG/ML SYRINGE SQ SCH ×2 (11:00→22:02)
[2017-06-06] MEDS: POTASSIUM CHLORIDE 20 MEQ CONTROLLED RELEASE TAB PO SCH (11:45)
--- NOTE | 2017-06-06 12:26 | HHI.PYPN ---
Subjective Remarks Pt seen and discussed with staff. She was agitated last night and received emergency medications to maintain safety. She slept last night and napped for much of the morning. She took medications and has not been aggressive today so far. She is resting in room today but rouses easily. Mental Status Examination Appearance: Disheveled Consciousness: Alert (sleepy but arouses easily) Orientation: Person Speech: Hesitant Language: Other (making nonsensical statements) Fund of Knowledge: Poor Attention and Concentration: Inadequate Memory: Impaired Mood: Irritable Affect: Flat Thought Process & Associations: Disorganized Thought Content: Bizarre thinking Hallucination Type: Other (appears internally stimulated) Delusion Type: Bizarre Suicidal Ideation: No Suicidal Plan: No Suicidal Intention: No Homicidal Ideation: No Homicidal Plan: No Homicidal Intention: No Insight: Poor Judgment: Poor Results Labs Test 06/06/17 07:22 Blood Urea Nitrogen 24 MG/DL Creatinine 0.46 MG/DL Random Glucose 88 MG/DL Total Protein 6.5 GM/DL Albumin 2.6 GM/DL Calcium Level 8.3 MG/DL Alkaline Phosphatase 79 U/L Aspartate Amino Transf (AST/SGOT) 31 U/L Alanine Aminotransferase (ALT/SGPT) 67 U/L Total Bilirubin 1.0 MG/DL Sodium Level 145 MEQ/L Potassium Level 3.4 MEQ/L Chloride Level 111 MEQ/L Carbon Dioxide Level 29.5 MEQ/L Anion Gap 5 MEQ/L Estimat Glomerular Filtration Rate 136 ML/MIN Date/Time Source Procedure Growth Status 06/03/17 21:00 Urine Clean Catch Urine Culture - Final Klebsiella Pneumoniae Complete Vitals/IOs Vital Signs Date Time Temp Pulse Resp B/P (MAP) Pulse Ox O2 Delivery O2 Flow Rate FiO2 06/06/17 06:00 97.6 105 16 123/63 (83) 97 Intake and Output 06/06/17 06/06/17 06/07/17 08:00 16:00 00:00 Intake Total 0 ml 260 ml Balance 0 ml 260 ml Assessment & Plan Problem List: (1) Unspecified mood [affective] disorder ICD Codes: F39 - Unspecified mood [affective] disorder Status: Acute Assessment & Plan Continue current tx plan. Estimated LOS: days Justification for Cont. Inpt. monitoring for safety Karla Humphrey MD Jun 06, 2017 12:26
[2017-06-06] MEDS: CIPROFLOXACIN 500 MG TAB PO SCH (13:00)
--- NOTE | 2017-06-06 13:26 | HHI.PR ---
Subjective Remarks The patient is sleeping in her bed. Easily wakes up to verbal stimuli. However has very soft monotone voice. Able to answer questions. Denies any acute issues overnight. She states she was on Eliquis was for many years. But that was discontinued and she is not sure. Per nursing staff, patient's family is coming today and family has been refusing blood thinners because they think that patient's mental status issues are secondary to [place] with. This was back in [facility] before transfer to here. Objective Vitals Vital Signs Date Time Temp Pulse Resp B/P (MAP) Pulse Ox O2 Delivery O2 Flow Rate FiO2 06/06/17 06:00 97.6 105 16 123/63 (83) 97 06/06/17 00:00 98.7 89 18 164/84 (110) 96 06/05/17 20:00 97.9 97 20 151/72 (98) 97 06/05/17 18:00 98.4 94 18 144/64 (90) 98 I/O 06/05/17 06/05/17 06/05/17 06/06/17 06/06/17 06/06/17 07:00 15:00 23:00 07:00 15:00 23:00 Intake Total 720 ml 360 ml 0 ml 260 ml Balance 720 ml 360 ml 0 ml 260 ml Intake Oral 720 ml 360 ml 0 ml 260 ml # Voids 2 4 2 1 Result Diagram: 06/02/17 1630 06/06/17 0722 Objective Remarks GENERAL: This is a middle-aged lady, looks chronically ill,, in no apparent distress. Answers questions although in very soft monotone voice. Flat effect. SKIN: Warm and dry. No obvious erythematous lesions HEAD: Normocephalic. No temporal or scalp tenderness. EYES: Pupils equal round and reactive. No scleral icterus. No injection or drainage. ENT: Nose without bleeding. Airway patent. NECK: Trachea midline. No JVD. CARDIOVASCULAR: Irregular rate and rhythm without murmurs, gallops, or rubs. RESPIRATORY: Breath sounds equal bilaterally. No wheezes, rales, or rhonchi. GASTROINTESTINAL: Abdomen soft, non-tender, nondistended. No guarding. Bowel sounds active 4. MUSCULOSKELETAL: Extremities without clubbing, cyanosis, or edema. No calf asymmetry. NEUROLOGICAL: Mostly sleeping. But awakens to verbal stimuli. Answers questions appropriately although seems to be forgetful. both assistant chief nursing officer and patient said she has been ambulating at times. Fall risk and thus have a sitter at bedside. A/P Problem List: (1) HTN (hypertension) ICD Code: I10 - Essential (primary) hypertension (2) CVA (cerebral vascular accident) ICD Code: I63.9 - Cerebral infarction, unspecified (3) Chronic a-fib ICD Code: I48.2 - Chronic atrial fibrillation (4) Urinary tract infection due to Klebsiella species ICD Code: N39.0 - Urinary tract infection, site not specified; B96.1 - Klebsiella pneumoniae [K. pneumoniae] as the cause of diseases classified elsewhere Status: Acute Assessment and Plan Impression/ Plan: Altered mental status. Workup per neurology. RPR is positive. Treponemal antibodies pending. CT brain done at [facility] in May 25, 2017. No evidence of intracranial abnormalities. Mild volume loss age appropriate. Mild chronic small vessel ischemic changes. Chronic lacunar infarct. Chronic left cerebellar infarcts. MRI and MRA was done there.Records are not in chart. Per hospitalist note from [facility], no acute findings on those studies. MRI ordered by neurologist here still pending. Patient was not able to tolerate it and nursing staff waiting on family did go down with patient. EEG Physical therapy consult. Troponin is positive, we will need to consult ID. We'll follow up. UTI Consider UTI. On Cipro. Atrial fibrillation Chronic. Patient was on The been previously. Family is refusing blood thinners thinking that this is the cause of her confusion. Currently patient is on Lovenox therapeutic dose per neurology. Agree with this. Patient also is a high risk for falls at this point. Question whether this risk would change once her altered mental status is treated if possible medically. For now, would need to discuss with family members and possibly withhold full anticoagulant due to risk of falls. She however is a high risk for CVA and blood clots due to history of DVT and A. fib. DVT - Echocardiogram was done at [facility], will obtain records - Continue with diltiazem 240 mg daily, enalaprilat PRN - Full dose Lovenox 100 g every 12 hours Hyperlipidemia - LDL 103, HDL 29 - LFTS slightly elevated. Recheck in 2 days. Start statin if LFTs improved. Hypertension Hypokalemia Denies diarrhea. Potassium 20 mEq once given this morning. We'll give additional 40 mEq now. DVT prophylaxis with Lovenox High risk for falls Discharge Planning patient, nursing staff Ethan Blandon MD Jun 06, 2017 13:26
[2017-06-06] MEDS ORDERED: POTASSIUM CHLORIDE 20 MEQ CONTROLLED RELEASE TAB PO ONE (14:00)
[2017-06-06] MEDS ORDERED: GADODIAMIDE PF 287 MG/ML 20 ML VIAL (for RAD MRI) IVCONTRAST ONE (18:18)
--- NOTE | 2017-06-06 19:04 | RADRPT ---
EXAM DATE/TIME: 06/06/2017 17:41 [facility] COMPARISON: No previous studies available for comparison. INDICATIONS : CVA. Confusion. Memory loss. CONTRAST: 20 cc Omniscan (gadodiamide) IV MEDICAL HISTORY : Hypertension. SURGICAL HISTORY : section. ENCOUNTER: Initial ACUITY: 4-6 days PAIN SCORE: 0/10 LOCATION: cranial TECHNIQUE: Multiplanar, multisequence MRI of the brain was performed both prior to and following the administrat ion of paramagnetic contrast. FINDINGS: There is no evidence for intracranial hemorrhage, mass effect, mass lesions, edema, or extra-axial fl uid collections. There are no signs of acute infarction for technique. The diffusion portion, and po stcontrast portion are unremarkable. Slight degree of brain atrophy is seen. Slight periventricular w karel matter changes are seen nonspecific mostly consistent with chronic small vessel ischemic changes . CONCLUSION: Chronic atrophic and small vessel ischemic changes without any evidence for acute hemorrhage or mass effect. Tate Lee MD on June 06, 2017 at 19:00 Board Certified Radiologist. This report was verified electronically.
[2017-06-07] MEDS: CIPROFLOXACIN 500 MG TAB PO SCH ×2 (01:00→11:50)
[2017-06-07] MEDS: NYSTATIN 100,000 U/GM PWD 15 GM BTL TOPICAL SCH ×3 (06:00→22:54)
[2017-06-07 06:14] VITALS: BP 174/89; PULSE 94; RESP 16; TEMP 97.7; O2SAT 96
[2017-06-07] MEDS: DILTIAZEM-CD 240 MG CAP ER PO SCH (09:25)
[2017-06-07] MEDS: CALCIUM CARBONATE 1.25 GM (CA 500 MG) TAB PO SCH ×2 (09:25→22:55)
[2017-06-07] MEDS: POTASSIUM CHLORIDE 20 MEQ CONTROLLED RELEASE TAB PO SCH (09:26)
[2017-06-07] MEDS: QUEtiapine FUMARATE 25 MG TAB PO SCH (09:26)
--- NOTE | 2017-06-07 10:12 | HHI.PYPN ---
Subjective Remarks The patient was seen today for psychiatric reevaluation with nurse in charge. Chart reviewed. Notes for weekend psychiatrist reviewed. Hospital input appreciated. On psychiatric evaluation today the patient presents sleepy, a little bit lethargic, superficially cooperative, filing sleep often. She reports feeling better. A little bit confused, but she knows she is at [place] in 2017. As per nurse report the patient at times becomes agitated, talkative, sexually inappropriate. No aggressive behavior or agitation reported. She has been compliant with her medications. She has been described as a little be lethargic and sleeping in the morning. Review of Systems Except as stated in HPI: all other systems reviewed are Neg Mental Status Examination Appearance: Disheveled Consciousness: Alert (sleepy but arouses easily) Orientation: Person, Place Speech: Hesitant Language: Other (making nonsensical statements) Fund of Knowledge: Poor Attention and Concentration: Inadequate Memory: Impaired Mood: Irritable Affect: Flat Thought Process & Associations: Disorganized Thought Content: Bizarre thinking Hallucination Type: Other (appears internally stimulated) Delusion Type: Bizarre Suicidal Ideation: No Suicidal Plan: No Suicidal Intention: No Homicidal Ideation: No Homicidal Plan: No Homicidal Intention: No Insight: Poor Judgment: Poor Results Labs Date/Time Source Procedure Growth Status 06/03/17 21:00 Urine Clean Catch Urine Culture - Final Klebsiella Pneumoniae Complete Vitals/IOs Vital Signs Date Time Temp Pulse Resp B/P (MAP) Pulse Ox O2 Delivery O2 Flow Rate FiO2 06/07/17 06:14 97.7 94 16 174/89 (117) 96 Intake and Output 06/07/17 06/07/17 06/08/17 08:00 16:00 00:00 Intake Total 120 ml Balance 120 ml Assessment & Plan Problem List: (1) Unspecified mood [affective] disorder ICD Codes: F39 - Unspecified mood [affective] disorder Status: Acute Assessment & Plan: Since patient seems to be lethargic and sleeping in the morning, we will decrease Seroquel to 25 mg in the morning. Now, will increase Seroquel at bedtime to 200 mg for psychosis. Psychoeducation and brief supportive psychotherapy provided. Assessment & Plan Estimated LOS: days Justification for Cont. Inpt. Patient continues to be acutely psychotic. She needs to continue psychiatric hospitalization for stabilization. Michelet Contreras MD Jun 07, 2017 10:12
[2017-06-07] MEDS: ENOXAPARIN SODIUM 100 MG/ML SYRINGE SQ SCH ×2 (11:50→22:54)
--- NOTE | 2017-06-07 12:07 | HHI.PR ---
Subjective Remarks no complaints initially did not want to take lovenox or cipro but later agreed mostly in bed still, except to go to bathroom with psychiatric nursing assistant Objective Vitals Vital Signs Date Time Temp Pulse Resp B/P (MAP) Pulse Ox O2 Delivery O2 Flow Rate FiO2 06/07/17 06:14 97.7 94 16 174/89 (117) 96 I/O 06/06/17 06/06/17 06/06/17 06/07/17 06/07/17 06/07/17 07:00 15:00 23:00 07:00 15:00 23:00 Intake Total 0 ml 260 ml 0 ml 120 ml Balance 0 ml 260 ml 0 ml 120 ml Intake Oral 0 ml 260 ml 0 ml 120 ml # Voids 1 2 0 Result Diagram: 06/06/17721 Objective Remarks GENERAL: This is a middle-aged lady, looks chronically ill,, in no apparent distress. Answers questions although in very soft monotone voice. Flat effect. SKIN: Warm and dry. No obvious erythematous lesions HEAD: Normocephalic. No temporal or scalp tenderness. EYES: Pupils equal round and reactive. No scleral icterus. No injection or drainage. ENT: Nose without bleeding. Airway patent. NECK: Trachea midline. No JVD. CARDIOVASCULAR: Irregular rate and rhythm without murmurs, gallops, or rubs. RESPIRATORY: Breath sounds equal bilaterally. No wheezes, rales, or rhonchi. GASTROINTESTINAL: Abdomen soft, non-tender, nondistended. No guarding. MUSCULOSKELETAL: Extremities without clubbing, cyanosis, or edema. No calf asymmetry. NEUROLOGICAL: Mostly sleeping. But awakens to verbal stimuli. Answers questions appropriately although seems to be forgetful. both psychiatric nursing assistant and patient said she has been ambulating at times. Fall risk and thus have a sitter at bedside. A/P Problem List: (1) HTN (hypertension) ICD Code: I10 - Essential (primary) hypertension (2) CVA (cerebral vascular accident) ICD Code: I63.9 - Cerebral infarction, unspecified (3) Chronic a-fib ICD Code: I48.2 - Chronic atrial fibrillation (4) Urinary tract infection due to Klebsiella species ICD Code: N39.0 - Urinary tract infection, site not specified; B96.1 - Klebsiella pneumoniae [K. pneumoniae] as the cause of diseases classified elsewhere Status: Acute Assessment and Plan Impression/ Plan: Altered mental status. Workup per neurology. RPR is positive. Treponemal antibodies pending. CT brain done at [facility] in May 25, 2017. No evidence of intracranial abnormalities. Mild volume loss age appropriate. Mild chronic small vessel ischemic changes. Chronic lacunar infarct. Chronic left cerebellar infarcts. MRI and MRA was done there.Records are not in chart. Per hospitalist note from [facility], no acute findings on those studies. MRI didn't hear June 06, 2017. Chronic atrophic and small vessel ischemic changes. No evidence of acute infarct/hemorrhage/mass effects Atrial Fibrillation Chronic. Patient was on The been previously. Family is refusing blood thinners thinking that this is the cause of her confusion. Currently patient is on Lovenox therapeutic dose per neurology. Agree with this. Patient also is a high risk for falls at this point. Question whether this risk would change once her altered mental status is treated if possible medically. For now, would need to discuss with family members and possibly withhold full anticoagulant due to risk of falls. She however is a high risk for CVA and blood clots due to history of DVT and A. fib. DVT - Echocardiogram was done at [facility], will obtain records - Continue with diltiazem 240 mg daily, enalaprilat PRN - Full dose Lovenox 100 g every 12 hours Hyperlipidemia - LDL 103, HDL 29 - LFTS slightly elevated. still ALT remains elevated on recheck. We'll not start any statins. Address this as an outpatient with PCP. Hypertension Hypokalemia Denies diarrhea. on K replacements will recheck today- and replace if needed DVT prophylaxis with Lovenox High risk for falls need PT aggressively- need to encourage patient and try Discharge Planning patient, nursing staff Ethan Blandon MD Jun 07, 2017 12:07
[2017-06-07 18:00] VITALS: BP 148/66; PULSE 105; RESP 18; TEMP 97.5; O2SAT 96
[2017-06-07] MEDS ORDERED: POTASSIUM CHLORIDE 10 MEQ CAP PO ONE (20:30)
[2017-06-07] MEDS ORDERED: QUEtiapine FUMARATE 25 MG TAB PO SCH (21:00)
[2017-06-08] MEDS: CIPROFLOXACIN 500 MG TAB PO SCH ×2 (01:00→12:47)
[2017-06-08] MEDS: NYSTATIN 100,000 U/GM PWD 15 GM BTL TOPICAL SCH ×3 (06:00→20:27)
[2017-06-08 06:16] VITALS: BP 139/73; PULSE 99; RESP 16; TEMP 97.9; O2SAT 95
--- NOTE | 2017-06-08 08:42 | HHI.PR ---
Objective Vital Signs Date Time Temp Pulse Resp B/P (MAP) Pulse Ox O2 Delivery O2 Flow Rate FiO2 06/08/17 06:16 97.9 99 16 139/73 (95) 95 06/07/17 18:00 97.5 105 18 148/66 (93) 96 I/O 06/07/17 06/07/17 06/07/17 06/08/17 06/08/17 06/08/17 07:00 15:00 23:00 07:00 15:00 23:00 Intake Total 120 ml 120 ml 900 ml Balance 120 ml 120 ml 900 ml Intake Oral 120 ml 120 ml 900 ml # Voids 0 2 1 Result Diagram: 06/07/17 1300 Objective Remarks awake alertknows hosp not yr seems like some paranoia this am follows commands well moves all well awaken in chair speech nl Assessment and Plan Assessment and Plan imp mri shows old left cbllr x2 cva and left wm cva fmh mrax2 neg few weeks ago thought to be psych there eeg neg UTI on cipro but this can cause confusion and rec change to diff abt rpr pos check fta pend crp 4.4 seemed better few days ago SHE NEEDS TO GET ON AN ORAL ANTICOAG EITHER BACK ON ELIQUIS OR XARELTO OR COUMADIN WITH HX AFIB AND SEVERAL OLD SMALL CVAS AND OFF LOVENOX Scar Horton MD Jun 08, 2017 08:42
[2017-06-08] MEDS ORDERED: ASPIRIN 325 MG TAB PO SCH (09:00)
[2017-06-08] MEDS ORDERED: QUEtiapine FUMARATE 25 MG TAB PO SCH ×2 (09:00→21:00)
[2017-06-08] MEDS: POTASSIUM CHLORIDE 20 MEQ CONTROLLED RELEASE TAB PO SCH (09:42)
[2017-06-08] MEDS: CALCIUM CARBONATE 1.25 GM (CA 500 MG) TAB PO SCH ×2 (09:42→20:27)
[2017-06-08] MEDS: DILTIAZEM-CD 240 MG CAP ER PO SCH (09:43)
--- NOTE | 2017-06-08 10:24 | HHI.PYPN ---
Subjective Remarks Patient seen for follow-up, chart reviewed. Discussion she staff reported the patient noted to respond to internal stimuli, continues to be confused and disorganized, recent CT was negative. Potassium level was normal. Patient was found sitting in hospital chair with sitter at bedside. Patient noted to be more engaging with greater attention span but noted to be confused and disorganized at times. Patient states that she had been feeling "okay" with the weekend have been "better" but was not able to expand on what has been better lately compared to her initial presentation. Patient alert and oriented only to person and place, continues to report having auditory hallucinations of her daughter and at times makes a couple nonsensical statements. Patient denies any SI, HI, any visual hallucinations and continued with some paranoid delusions. Review of Systems Except as stated in HPI: all other systems reviewed are Neg Mental Status Examination Appearance: Disheveled (slightly improved) Consciousness: Alert (sleepy but arouses easily) Orientation: Person, Place Speech: Hesitant, Other (low-volume) Language: Other (making nonsensical statements at times but less so today) Fund of Knowledge: Poor Attention and Concentration: Inadequate Memory: Impaired Mood: Irritable (less on today) Affect: Flat Thought Process & Associations: Disorganized (less so today) Thought Content: Bizarre thinking, Delusional Hallucination Type: Other (appears internally stimulated) Delusion Type: Bizarre, Paranoid Suicidal Ideation: No Suicidal Plan: No Suicidal Intention: No Homicidal Ideation: No Homicidal Plan: No Homicidal Intention: No Insight: Poor Judgment: Poor Results Labs Labs reviewed Test 06/07/17 13:00 Potassium Level 3.9 MEQ/L Date/Time Source Procedure Growth Status 06/03/17 21:00 Urine Clean Catch Urine Culture - Final Klebsiella Pneumoniae Complete Vitals/IOs Vital Signs Date Time Temp Pulse Resp B/P (MAP) Pulse Ox O2 Delivery O2 Flow Rate FiO2 06/08/17 06:16 97.9 99 16 139/73 (95) 95 Intake and Output 06/08/17 06/08/17 06/09/17 08:00 16:00 00:00 Intake Total 120 ml Balance 120 ml Assessment & Plan Problem List: (1) Unspecified mood [affective] disorder ICD Codes: F39 - Unspecified mood [affective] disorder Status: Acute Assessment & Plan Patient this time continues to be noted to be confused and disorganized but noted to be slightly more engaging today. Patient continues with auditory hallucinations of the voice of her daughter. We'll increase quetiapine to 25/25 /225mg for psychosis. Patient with positive RPR, FTA-Abs pending. Continue recommendations as per primary medical team. Recent MRI of the brain noted for chronic atrophic and small vessel ischemic changes with no acute hemorrhage or mass effect. Discharge planning in progress Justification for Cont. Inpt. At risk for further decompensation at lower level of care Discharge Planning To return back to her residence once psychiatric and medically stable Chucky Resendiz MD Jun 08, 2017 10:24
[2017-06-08] MEDS: ENOXAPARIN SODIUM 100 MG/ML SYRINGE SQ SCH ×2 (11:00→21:08)
--- NOTE | 2017-06-08 12:06 | HHI.PR ---
Subjective Remarks sitting up in chair, eating lunch looks much more awake and alert and communicative but was scared of her male aide at bedside daughter is at bedside as well no acute issues overnight she is however scared and does not like her male aide at the bedside and does not want to answer much questions Objective Vitals Vital Signs Date Time Temp Pulse Resp B/P (MAP) Pulse Ox O2 Delivery O2 Flow Rate FiO2 06/08/17 06:16 97.9 99 16 139/73 (95) 95 06/07/17 18:00 97.5 105 18 148/66 (93) 96 I/O 06/07/17 06/07/17 06/07/17 06/08/17 06/08/17 06/08/17 07:00 15:00 23:00 07:00 15:00 23:00 Intake Total 120 ml 120 ml 900 ml 120 ml Balance 120 ml 120 ml 900 ml 120 ml Intake Oral 120 ml 120 ml 900 ml 120 ml # Voids 0 2 1 Result Diagram: 06/07/17 1300 Objective Remarks GENERAL: This is a middle-aged lady, looks chronically ill,, in no apparent distress. Answers questions although in very soft monotone voice. Flat effect. daughter at bedside today, so much more alert than previous days SKIN: Warm and dry. No obvious erythematous lesions HEAD: Normocephalic. No temporal or scalp tenderness. EYES: Pupils equal round and reactive. No scleral icterus. No injection or drainage. ENT: Nose without bleeding. Airway patent. NECK: Trachea midline. No JVD. CARDIOVASCULAR: Irregular rate and rhythm without murmurs, gallops, or rubs. RESPIRATORY: Breath sounds equal bilaterally. No wheezes, rales, or rhonchi. GASTROINTESTINAL: Abdomen soft, non-tender, nondistended. No guarding. MUSCULOSKELETAL: Extremities without clubbing, cyanosis, or edema. No calf asymmetry. NEUROLOGICAL: Much more awake today, sitting on chair eating, ambulated without assistance, no focal deficits,. Answers questions appropriately although seems to be forgetful. both certified nursing assistant instructor and patient said she has been ambulating A/P Problem List: (1) HTN (hypertension) ICD Code: I10 - Essential (primary) hypertension (2) CVA (cerebral vascular accident) ICD Code: I63.9 - Cerebral infarction, unspecified (3) Chronic a-fib ICD Code: I48.2 - Chronic atrial fibrillation (4) Urinary tract infection due to Klebsiella species ICD Code: N39.0 - Urinary tract infection, site not specified; B96.1 - Klebsiella pneumoniae [K. pneumoniae] as the cause of diseases classified elsewhere Status: Acute Assessment and Plan Impression/ Plan: Altered mental status. Workup per neurology. RPR is positive. Treponemal antibodies pending. CT brain done at [facility] in May 25, 2017. No evidence of intracranial abnormalities. Mild volume loss age appropriate. Mild chronic small vessel ischemic changes. Chronic lacunar infarct. Chronic left cerebellar infarcts. MRI and MRA was done there.Records are not in chart. Per hospitalist note from [facility], no acute findings on those studies. MRI didn't hear June 06, 2017. Chronic atrophic and small vessel ischemic changes. No evidence of acute infarct/hemorrhage/mass effects Atrial Fibrillation Chronic. Patient was on The been previously. Family is refusing blood thinners thinking that this is the cause of her confusion. Currently patient is on Lovenox therapeutic dose per neurology. Agree with this. She is a high risk for CVA and blood clots due to history of DVT and A. fib. Discussed with patient, her daughter and her nurse today extensively. Both daughter and nurse stated pt in fact is quite steady,walking without assistance. Used to live on her own up until about 2-3 weeks ago, before admission to [facility]. Thus, agree that pt should be on anticoagulation. Discussed anticoagulant options other than eliquis. Daughter and patient are agreeable to start of anticogulant, but unsure which one and they will discuss with her other daughter and let us know. Likely pt will be dc to rehab facility later- thus coumadin is likely better option. DVT - Echocardiogram was done at [facility], still awaiting on records- thus neuro ordered echo again- will followup - Continue with diltiazem 240 mg daily, enalaprilat PRN - Full dose Lovenox 100 g every 12 hours Hyperlipidemia - LDL 103, HDL 29 - LFTS slightly elevated. still ALT remains elevated on recheck. We'll not start any statins. Address this as an outpatient with PCP. Hypertension Hypokalemia Denies diarrhea. on K replacements resolved now DVT prophylaxis with Lovenox need PT aggressively- need to encourage patient and try Discharge Planning patient, nursing staff Ethan Blandon MD Jun 08, 2017 12:06
[2017-06-08] MEDS: QUEtiapine FUMARATE 25 MG TAB PO SCH ×2 (16:00→20:59)
[2017-06-08 18:00] VITALS: BP 156/73; PULSE 99; RESP 17; TEMP 98.1; O2SAT 97
[2017-06-08] MEDS: QUEtiapine FUMARATE 100 MG TAB PO SCH (20:59)
[2017-06-08] MEDS: SULFAMETHOXAZOLE-TRIMETHOPRIM DS 800-160 MG TAB PO SCH (20:59)
[2017-06-08] MEDS: diphenhydrAMINE HCL 50 MG CAP PO PRN (23:35)
[2017-06-09 03:50] LABS: HU (NEURONAL NUCLEAR) AB FLUORESCENCE NOTED (NEGATIVE); HU (NEURONAL NUCLEAR) AB TITER ND titer (<1:40); NEURONAL NUCLEAR(Ri) AB SCREEN FLUORESCENCE NOTED (NEGATIVE); PURKINJE CELL (YO) AB FLUORESCENCE NOTED (NEGATIVE); PURKINJE CELL(YO)IGG AB TITER ND titer (<1:40); YO WESTBLOT NEGATIVE (NEGATIVE)
[2017-06-09 05:29] LABS: BICARBONATE 25.9 MEQ/L (21.0-32.0); CALCIUM 8.9 MG/DL (8.5-10.1); CREATININE 0.56 MG/DL (0.50-1.00)
[2017-06-09] MEDS: NYSTATIN 100,000 U/GM PWD 15 GM BTL TOPICAL SCH ×3 (05:36→20:41)
[2017-06-09 06:12] VITALS: BP 169/90; PULSE 102; RESP 16; TEMP 97.6; O2SAT 94
[2017-06-09] MEDS: CALCIUM CARBONATE 1.25 GM (CA 500 MG) TAB PO SCH ×2 (08:23→20:40)
[2017-06-09] MEDS: POTASSIUM CHLORIDE 20 MEQ CONTROLLED RELEASE TAB PO SCH (08:23)
[2017-06-09] MEDS: QUEtiapine FUMARATE 25 MG TAB PO SCH ×3 (08:23→20:40)
[2017-06-09] MEDS: SULFAMETHOXAZOLE-TRIMETHOPRIM DS 800-160 MG TAB PO SCH ×2 (08:23→20:40)
[2017-06-09] MEDS: DILTIAZEM-CD 240 MG CAP ER PO SCH (08:23)
--- NOTE | 2017-06-09 09:44 | HHI.PYPN ---
Subjective Remarks Patient seen for follow-up, chart reviewed. Discussion she staff reported that at night patient was noted to be calm, to evening medications and was noted to be moving around the unit but did not endorse any paranoid ideation last evening. Patient was found lying in hospital and was sitter at bedside she is on one-to-one observation due to previous episodes of agitation. Patient was noted to be calm and cooperative and noted to have more organized thought process during interview today. Patient states that she slept "really good" and her mood has been better although stating that she is feeling a little depressed because she is here in the hospital. Patient denies any suicidal ideations at this time. Patient reports having auditory hallucinations "sometimes" but does not recall having endorsed auditory hallucinations of her daughters voice that she has done been previous days. Patient also continues to endorse some paranoid delusions but was unspecified. Patient also mentions having had visual hallucinations of a tiger interrupted her car 2 days ago. Patient also reports having visited by her daughter Ayleen last evening and was told by her that she was looking better. Review of Systems Except as stated in HPI: all other systems reviewed are Neg Mental Status Examination Appearance: Disheveled (slightly improved) Consciousness: Alert (sleepy but arouses easily) Orientation: Person, Place Speech: Hesitant, Other (low-volume) Language: Other (making nonsensical statements at times but less so today) Fund of Knowledge: Poor Attention and Concentration: Inadequate Memory: Impaired Mood: Appropriate Affect: Flat Thought Process & Associations: Disorganized (less so today) Thought Content: Bizarre thinking (less so today), Hallucinations, Delusional Hallucination Type: Auditory, Visual, Other (appears internally stimulated) Delusion Type: Bizarre, Paranoid Suicidal Ideation: No Suicidal Plan: No Suicidal Intention: No Homicidal Ideation: No Homicidal Plan: No Homicidal Intention: No Insight: Poor Judgment: Poor Results Labs Labs reviewed Test 06/09/17 04:35 Blood Urea Nitrogen 15 MG/DL Creatinine 0.56 MG/DL Random Glucose 89 MG/DL Calcium Level 8.9 MG/DL Sodium Level 139 MEQ/L Potassium Level 4.0 MEQ/L Chloride Level 105 MEQ/L Carbon Dioxide Level 25.9 MEQ/L Anion Gap 8 MEQ/L Estimat Glomerular Filtration Rate 108 ML/MIN Date/Time Source Procedure Growth Status 06/03/17 21:00 Urine Clean Catch Urine Culture - Final Klebsiella Pneumoniae Complete Vitals/IOs Vital Signs Date Time Temp Pulse Resp B/P (MAP) Pulse Ox O2 Delivery O2 Flow Rate FiO2 06/09/17 06:12 97.6 102 16 169/90 (116) 94 Intake and Output 06/09/17 06/09/17 06/10/17 08:00 16:00 00:00 Intake Total 0 ml Balance 0 ml Assessment & Plan Problem List: (1) Unspecified mood [affective] disorder ICD Codes: F39 - Unspecified mood [affective] disorder Status: Acute Assessment & Plan She at this time noted to be slightly more organized and engage in interview today. Patient continues to report some auditory hallucinations at times as well as visual hallucinations 2 days ago along with paranoid ideation. We'll continue current treatment for now as patient seems to be improving on current regimen. Patient with better behavioral control recently will attempt discontinuing one-to-one observation for today. Continue recommendations from primary medical team, FTA-Abs pending. Discharge planning in progress Justification for Cont. Inpt. At risk for further decompensation if at lower level of care Discharge Planning To return back to her residence when psychiatrically and medically cleared Chucky Resendiz MD Jun 09, 2017 09:44
[2017-06-09] MEDS: ENOXAPARIN SODIUM 100 MG/ML SYRINGE SQ SCH ×2 (11:00→21:11)
--- NOTE | 2017-06-09 12:31 | HHI.PR ---
Subjective Remarks awake, alert, pleasant, was talking about her neighbor in hospital bed denies any symptoms overnight still not decided about anticoagulation Objective Vitals Vital Signs Date Time Temp Pulse Resp B/P (MAP) Pulse Ox O2 Delivery O2 Flow Rate FiO2 06/09/17 06:12 97.6 102 16 169/90 (116) 94 06/08/17 18:00 98.1 99 17 156/73 (100) 97 I/O 06/08/17 06/08/17 06/08/17 06/09/17 06/09/17 06/09/17 07:00 15:00 23:00 07:00 15:00 23:00 Intake Total 720 ml 120 ml 0 ml 120 ml Balance 720 ml 120 ml 0 ml 120 ml Intake Oral 720 ml 120 ml 0 ml 120 ml # Voids 1 5 1 Result Diagram: 06/09/17 0435 Objective Remarks GENERAL: This is a middle-aged lady, in no apparent distress. Answers questions although in very soft monotone voice. Flat effect. SKIN: Warm and dry. No obvious erythematous lesions HEAD: Normocephalic. No temporal or scalp tenderness. EYES: Pupils equal round and reactive. No scleral icterus. No injection or drainage. ENT: Nose without bleeding. Airway patent. NECK: Trachea midline. No JVD. CARDIOVASCULAR: Irregular rate and rhythm without murmurs, gallops, or rubs. RESPIRATORY: Breath sounds equal bilaterally. No wheezes, rales, or rhonchi. GASTROINTESTINAL: Abdomen soft, non-tender, nondistended. No guarding. MUSCULOSKELETAL: Extremities without clubbing, cyanosis, or edema. No calf asymmetry. NEUROLOGICAL: Much more awake today, ambulated without assistance, no focal deficits,. Answers questions appropriately although seems to be forgetful. A/P Problem List: (1) HTN (hypertension) ICD Code: I10 - Essential (primary) hypertension (2) CVA (cerebral vascular accident) ICD Code: I63.9 - Cerebral infarction, unspecified (3) Chronic a-fib ICD Code: I48.2 - Chronic atrial fibrillation (4) Urinary tract infection due to Klebsiella species ICD Code: N39.0 - Urinary tract infection, site not specified; B96.1 - Klebsiella pneumoniae [K. pneumoniae] as the cause of diseases classified elsewhere Status: Acute Assessment and Plan Impression/ Plan: Altered mental status. Workup per neurology. RPR is positive. Treponemal antibodies pending. CT brain done at [facility] in May 25, 2017. No evidence of intracranial abnormalities. Mild volume loss age appropriate. Mild chronic small vessel ischemic changes. Chronic lacunar infarct. Chronic left cerebellar infarcts. MRI and MRA was done there.Records are not in chart. Per hospitalist note from [facility], no acute findings on those studies. MRI didn't hear June 06, 2017. Chronic atrophic and small vessel ischemic changes. No evidence of acute infarct/hemorrhage/mass effects Atrial Fibrillation Chronic. Patient was on The been previously. Family is refusing blood thinners thinking that this is the cause of her confusion. Currently patient is on Lovenox therapeutic dose per neurology. Agree with this. She is a high risk for CVA and blood clots due to history of DVT and A. fib. Discussed with patient, her daughter and her nurse today extensively. Both daughter and nurse stated pt in fact is quite steady,walking without assistance. Used to live on her own up until about 2-3 weeks ago, before admission to [facility]. Thus, agree that pt should be on anticoagulation. Discussed anticoagulant options other than eliquis. Daughter and patient are agreeable to start of anticogulant, but unsure which one and they will discuss with her other daughter and let us know. Likely pt will be dc to rehab facility later- thus coumadin is likely better option. echo pending, will follow up DVT - Echocardiogram was done at [facility], still awaiting on records- thus neuro ordered echo again- will followup - Continue with diltiazem 240 mg daily, enalaprilat PRN - Full dose Lovenox 100 g every 12 hours Hyperlipidemia - LDL 103, HDL 29 - LFTS slightly elevated. still ALT remains elevated on recheck. We'll not start any statins. Address this as an outpatient with PCP. Hypertension Hypokalemia Denies diarrhea. on K replacements resolved now DVT prophylaxis with Lovenox need PT aggressively- need to encourage patient and try Discharge Planning per psychiatry team and family and patient Ethan Blandon MD Jun 09, 2017 12:31
[2017-06-09 16:44] LABS: ANA PATTERN SPECKLED
[2017-06-09 18:00] VITALS: BP 164/74; PULSE 93; RESP 18; TEMP 97.7; O2SAT 96
[2017-06-09] MEDS: QUEtiapine FUMARATE 100 MG TAB PO SCH (20:40)
[2017-06-10] MEDS: NYSTATIN 100,000 U/GM PWD 15 GM BTL TOPICAL SCH ×3 (05:43→22:00)
[2017-06-10 06:10] VITALS: BP 140/72; PULSE 110; RESP 17; TEMP 97.5; O2SAT 95
--- NOTE | 2017-06-10 07:59 | ECHRPT ---
Indication: CVA/TIA CONCLUSIONS The left ventricular systolic function is normal with an estimated ejection fraction in the range of 55-60%. Normal left ventricular size. Wall thickness is normal. No regional wall motion abnormalities are present. [id number] aortic valve regurgitation. There is trace tricuspid valve regurgitation. The estimated pulmonary arterial pressure is 29.5 mmHg. Trivial pulmonary valve regurgitation. BP: 139 / 73 HR: 99 Rhythm: Sinus MEASUREMENTS (Male / Female) Normal Values Technical Quality:Fair 2D ECHO LV Diastolic Diameter PLAX 3.4 cm 4.2 - 5.9 / 3.9 - 5.3 cm LV Systolic Diameter PLAX 2.5 cm IVS Diastolic Thickness 1.1 cm 0.6 - 1.0 / 0.6 - 0.9 cm LVPW Diastolic Thickness 1.1 cm 0.6 - 1.0 / 0.6 - 0.9 cm LV Relative Wall Thickness 0.7 LVOT Diameter 1.9 cm LA Systolic Diameter LX 3.2 cm 3.0 - 4.0 / 2.7 - 3.8 cm LV Ejection Fraction MOD 4C 60.5 % LV Cardiac Index MOD 4C 3328.2 cm/minm LV Ejection Fraction 4C AL 61.1 % LV Cardiac Index 4C AL 3474.6 cm/minm M-MODE Aortic Root Diameter MM 2.6 cm AV Cusp Separation MM 1.7 cm DOPPLER AV Peak Velocity 204.0 cm/s AV Peak Gradient 16.6 mmHg AI Peak Velocity 438.0 cm/s AI Peak Gradient 76.7 mmHg AI Pressure Half Time 466.0 ms LVOT Peak Velocity 106.0 cm/s LVOT Peak Gradient 4.5 mmHg AV Area Cont Eq pk 1.5 cm MV Area PHT 3.0 cm Mitral E Point Velocity 76.5 cm/s Mitral A Point Velocity 104.0 cm/s Mitral E to A Ratio 0.7 LV E' Lateral Velocity 7.5 cm/s Mitral E to LV E' Lateral Ratio 10.2 LV E' Septal Velocity 4.8 cm/s Mitral E to LV E' Septal Ratio 16.0 TR Peak Velocity 221.0 cm/s TR Peak Gradient 19.5 mmHg Right Atrial Pressure 10.0 mmHg Pulmonary Artery Systolic Pressu 29.5 mmHg Right Ventricular Systolic Press 29.5 mmHg PV Peak Velocity 132.0 cm/s PV Peak Gradient 7.0 mmHg FINDINGS LEFT VENTRICLE The left ventricular systolic function is normal with an estimated ejection fraction in the range of 55-60%. Normal left ventricular size. Wall thickness is normal. No regional wall motion abnormalities are present. RIGHT VENTRICLE Normal right ventricular size and systolic function. LEFT ATRIUM The left atrial size is normal. RIGHT ATRIUM The right atrial size is normal. ATRIAL SEPTUM Normal atrial septal thickness without atrial level shunting by limited color doppler interrogation. AORTA The aortic root and proximal ascending aorta are normal in size on limited imaging. MITRAL VALVE Structurally normal mitral valve. No mitral valve stenosis or regurgitation. AORTIC VALVE Trileaflet aortic valve. [id number] aortic valve regurgitation. TRICUSPID VALVE Structurally normal tricuspid valve. There is trace tricuspid valve regurgitation. The estimated pulmonary arterial pressure is 29.5 mmHg. PULMONARY VALVE Trivial pulmonary valve regurgitation. VESSELS The inferior vena cava is normal in size. PERICARDIUM No pericardial effusion. Ricci Ozuna MD (Electronically Signed) Final Date:10 June 2017 07:58
[2017-06-10] MEDS: SULFAMETHOXAZOLE-TRIMETHOPRIM DS 800-160 MG TAB PO SCH ×2 (09:00→21:00)
[2017-06-10] MEDS: CALCIUM CARBONATE 1.25 GM (CA 500 MG) TAB PO SCH ×2 (09:00→21:00)
[2017-06-10] MEDS: POTASSIUM CHLORIDE 20 MEQ CONTROLLED RELEASE TAB PO SCH (09:00)
[2017-06-10] MEDS: QUEtiapine FUMARATE 25 MG TAB PO SCH ×2 (09:00→16:00)
[2017-06-10] MEDS: DILTIAZEM-CD 240 MG CAP ER PO SCH (09:00)
--- NOTE | 2017-06-10 09:40 | HHI.PR ---
Subjective Remarks SPIT OUT HER CARDIZEM TODAY WILL MONITOR FOR BLOOD PRESSURE AND HEARTRATE DW RN AND PT Objective Vitals Vital Signs Date Time Temp Pulse Resp B/P (MAP) Pulse Ox O2 Delivery O2 Flow Rate FiO2 06/10/17 06:10 97.5 110 17 140/72 (94) 95 06/09/17 18:00 97.7 93 18 164/74 (104) 96 I/O 06/09/17 06/09/17 06/09/17 06/10/17 06/10/17 06/10/17 07:00 15:00 23:00 07:00 15:00 23:00 Intake Total 0 ml 360 ml 600 ml 0 ml Output Total 2 ml Balance 0 ml 360 ml 598 ml 0 ml Intake Oral 0 ml 360 ml 600 ml 0 ml Output Urine Total 2 ml # Voids 1 2 Result Diagram: 06/09/17 0435 Other Results Laboratory Tests Test 06/07/17 13:00 06/09/17 04:35 Potassium Level 3.9 MEQ/L 4.0 MEQ/L Blood Urea Nitrogen 15 MG/DL Creatinine 0.56 MG/DL Random Glucose 89 MG/DL Calcium Level 8.9 MG/DL Sodium Level 139 MEQ/L Chloride Level 105 MEQ/L Carbon Dioxide Level 25.9 MEQ/L Anion Gap 8 MEQ/L Estimat Glomerular Filtration Rate 108 ML/MIN Imaging Last Impressions Brain MRI 06/06/17 1625 Signed Impressions: Service Date/Time: Tuesday, June 06, 2017 17:41 - CONCLUSION: Chronic atrophic and small vessel ischemic changes without any evidence for acute hemorrhage or mass effect. Tate Lee MD Objective Remarks GENERAL: AWAKE AND ALERT TALKATIVE- A LITTLE COOPERATIVE- FOLLOWS SOME COMMANDS SKIN: Warm and dry. HEAD: Atraumatic. Normocephalic. EYES: Pupils equal and round. No scleral icterus. No injection or drainage. EOMI ENT: No nasal bleeding or discharge. Mucous membranes pink and moist. TONGUE IS MIDLINE NECK: Trachea midline. No JVD. SUPPLE CARDIOVASCULAR: Regular rate and rhythm. S1, S2 NO S3 OR S4 RESPIRATORY: No accessory muscle use. Clear to auscultation. Breath sounds equal bilaterally. GASTROINTESTINAL: Abdomen soft, non-tender, nondistended. Hepatic and splenic margins not palpable. MUSCULOSKELETAL: Extremities without clubbing, cyanosis, or edema. No obvious deformities. NEUROLOGICAL: Awake and alert. No obvious cranial nerve deficits. Motor grossly within normal limits. 4 out of 5 muscle strength in the arms and legs. Normal speech. PSYCHIATRIC: INAppropriate mood and affect; insight and judgment ABnormal. Procedures NONE Medications and IVs Current Medications Lorazepam (Ativan) 0.5 mg Q12H PRN PO MODERATE TO SEVERE ANXIETY Last administered on 06/03/17 20:28; Start 06/01/17 at 22:15 Lorazepam (Ativan Inj) 0.5 mg Q12H PRN IM MODERATE TO SEVERE ANXIETY Last administered on 06/05/17 08:25; Start 06/01/17 at 22:15 Hydroxyzine HCl (Atarax) 50 mg Q6H PRN PO ANXIETY Last administered on 13:42; Start 06/01/17 at 22:15 Diphenhydramine HCl (Benadryl) 50 mg Q6H PRN PO MILD ANXIETY, EPS Last administered on 06/08/17 23:35; Start 06/01/17 at 22:15 Diphenhydramine HCl (Benadryl Inj) 50 mg Q6H PRN IM MILD ANXIETY, EPS Last administered on 06/03/17 17:22; Start 06/01/17 at 22:15 Diphenhydramine HCl (Benadryl) 50 mg HS PRN PO INSOMNIA; Start 06/01/17 at 22: 15 Diphenhydramine HCl (Benadryl Inj) 50 mg HS PRN IM INSOMNIA; Start 06/01/17 at 22:15 Acetaminophen (Tylenol) 650 mg Q4H PRN PO Pain 1-5 or Temp >101F; Start at 22:15 Magnesium Hydroxide (Milk Of Magnesia Liq) 30 ml DAILY PRN PO CONSTIPATION; Start 06/01/17 at 22:15 Al Hydrox/Mg Hydrox/Simethicone (Mag-Al Plus Susp Liq) 30 ml Q6H PRN PO DYSPEPSIA; Start 06/01/17 at 22:15 Calcium Carbonate (Oscal) 500 mg BID PO Last administered on 06/09/17 20:40; Start 06/02/17 at 09:00 Diltiazem HCl (Cardizem Cd) 240 mg DAILY PO Last administered on 1/3/18at 08:23 ; Start 06/02/17 at 09:00 Enoxaparin Sodium (Lovenox Inj) 100 mg Q12H SQ Last administered on 06/09/17at 21 :11; Start 06/01/17 at 23:00 Quetiapine Fumarate (SEROquel) 50 mg BID PO Last administered on 06/02/17 19: 57; Start 06/02/17 at 09:00; Stop 06/03/17 at 08:07; Status DC Enalaprilat (Vasotec Inj) 1.25 mg Q6H PRN IV PUSH HYPERTENSION; Start at 22:30 Potassium Bicarb/ Potassium Chloride (K-Lyte Cl Eff) 25 meq ONCE ONCE PO ; Start 06/02/17 at 16:00; Stop 06/02/17 at 16:01; Status DC Quetiapine Fumarate (SEROquel) 75 mg BID PO Last administered on 06/03/17 20: 28; Start 06/03/17 at 09:00; Stop 06/04/17 at 10:26; Status DC Potassium Bicarbonate (Effer-K Eff) 50 meq ONCE ONCE PO ; Start 06/03/17 at 09 :30; Stop 06/03/17 at 13:00; Status DC Potassium Bicarb/ Potassium Chloride (K-Lyte Cl Eff) 50 meq ONCE ONCE PO Last administered on 06/03/17 13:28; Start 06/03/17 at 13:00; Stop 06/03/17 at 13:01; Status DC Potassium Bicarb/ Potassium Chloride (K-Lyte Cl Eff) 50 meq ONCE ONCE PO Last administered on 06/04/17 10:16; Start 06/04/17 at 09:00; Stop 06/04/17 at 09:01; Status DC Ciprofloxacin (Cipro) 500 mg Q12H PO Last administered on 06/08/17at 12:47; Start 06/04/17 at 13:00; Stop 06/08/17 at 12:56; Status DC Quetiapine Fumarate (SEROquel) 100 mg BID PO Last administered on 06/07/17at 09: 26; Start 06/04/17 at 21:00; Stop 06/07/17 at 10:07; Status DC Haloperidol Lactate (Haldol Inj) 5 mg STK-MED ONCE .ROUTE Last administered on 06/04/17 11:30; Start 06/04/17 at 11:23; Stop 06/04/17 at 11:24; Status DC Lorazepam (Ativan Inj) 1 mg NOW ONCE IM Last administered on 06/04/17 11:30 ; Start 06/04/17 at 12:00; Stop 06/04/17 at 12:01; Status DC Haloperidol Lactate (Haldol Inj) 5 mg STK-MED ONCE .ROUTE ; Start 06/04/17 at 17:30; Stop 06/04/17 at 17:31; Status DC Haloperidol Lactate (Haldol Inj) 5 mg ONCE ONCE IM Last administered on 17:40; Start 06/04/17 at 18:15; Stop 06/04/17 at 18:16; Status DC Lorazepam (Ativan Inj) 2 mg ONCE ONCE IM Last administered on 06/04/17 17:40 ; Start 06/04/17 at 18:15; Stop 06/04/17 at 18:16; Status DC Potassium Bicarb/ Potassium Chloride (K-Lyte Cl Eff) 50 meq ONCE ONCE PO Last administered on 06/05/17 12:15; Start 06/05/17 at 12:15; Stop 06/05/17 at 12:16; Status DC Haloperidol Lactate (Haldol Inj) 2 mg ONCE ONCE IM Last administered on 18:30; Start 06/05/17 at 18:30; Stop 06/05/17 at 18:31; Status DC Lorazepam (Ativan Inj) 1 mg ONCE ONCE IM Last administered on 06/05/17 18:30 ; Start 06/05/17 at 18:30; Stop 06/05/17 at 18:31; Status DC Nystatin (Mycostatin Powder) 1 applic Q8HR TOPICAL Last administered on at 05:43; Start 06/05/17 at 22:00; Stop 06/12/17 at 21:59 Potassium Chloride (KCl) 20 meq DAILY PO Last administered on 06/09/17at 08:23; Start 06/06/17 at 11:45 Potassium Chloride (KCl) 40 meq ONCE ONCE PO Last administered on 06/06/17 15:11; Start 06/06/17 at 14:00; Stop 06/06/17 at 14:01; Status DC Gadodiamide (Omniscan Pf Inj) 20 ml STK-MED ONCE IVCONTRAST Last administered on 06/06/17t 18:18; Start 06/06/17 at 18:18; Stop 06/06/17 at 18:19; Status DC Quetiapine Fumarate (SEROquel) 200 mg HS PO Last administered on 06/07/17at 22:55 ; Start 06/07/17 at 21:00; Stop 06/08/17 at 10:25; Status DC Quetiapine Fumarate (SEROquel) 25 mg DAILY PO Last administered on 06/08/17at 09: 42; Start 06/08/17 at 09:00; Stop 06/08/17 at 10:25; Status DC Potassium Chloride (KCl) 40 meq ONCE ONCE PO Last administered on 06/07/17at 20: 30; Start 06/07/17 at 20:30; Stop 06/07/17 at 20:31; Status DC Aspirin (Aspirin) 81 mg DAILY PO ; Start 06/08/17 at 09:00; Stop 06/08/17 at 09:00 ; Status DC Quetiapine Fumarate (SEROquel) 225 mg HS PO ; Start 06/08/17 at 21:00; Status Cancel Quetiapine Fumarate (SEROquel) 25 mg BID@0900,1600 PO Last administered on at 09:00; Start 06/08/17 at 16:00 Patient Medication Teaching (Coumadin Booklet) 1 ONCE ONCE OTHER ; Start at 16:00; Stop 06/08/17 at 16:01; Status DC Trimethoprim/ Sulfamethoxazole (Bactrim Ds 800-160 Mg) 1 tab Q12HR PO Last administered on 06/10/17at 09:00; Start 06/08/17 at 21:00; Stop 06/11/17 at 21:00 Quetiapine Fumarate (SEROquel) 200 mg HS PO Last administered on 06/09/17at 20:40 ; Start 06/08/17 at 21:00 Quetiapine Fumarate (SEROquel) 25 mg HS PO Last administered on 06/09/17at 20:40 ; Start 06/08/17 at 21:00 A/P Problem List: (1) HTN (hypertension) ICD Code: I10 - Essential (primary) hypertension (2) CVA (cerebral vascular accident) ICD Code: I63.9 - Cerebral infarction, unspecified (3) Chronic a-fib ICD Code: I48.2 - Chronic atrial fibrillation (4) Urinary tract infection due to Klebsiella species ICD Code: N39.0 - Urinary tract infection, site not specified; B96.1 - Klebsiella pneumoniae [K. pneumoniae] as the cause of diseases classified elsewhere Status: Acute Assessment and Plan Impression/ Plan: Altered mental status. Workup per neurology. RPR is positive. Treponemal antibodies FTA-ABS IS NEGATIVE CT brain done at [facility] in May 25, 2017. No evidence of intracranial abnormalities. Mild volume loss age appropriate. Mild chronic small vessel ischemic changes. Chronic lacunar infarct. Chronic left cerebellar infarcts. MRI and MRA was done there.Records are not in chart. Per hospitalist note from [facility], no acute findings on those studies. MRI June 06, 2017. Chronic atrophic and small vessel ischemic changes. No evidence of acute infarct/hemorrhage/mass effects Atrial Fibrillation Chronic. Patient was on ANTICOAGULATION previously. Family is refusing blood thinners thinking that this is the cause of her confusion. Currently patient is on Lovenox therapeutic dose per neurology. Agree with this. She is a high risk for CVA and blood clots due to history of DVT and A. fib. Discussed with patient, her daughter and her nurse today extensively. Both daughter and nurse stated pt in fact is quite steady,walking without assistance. Used to live on her own up until about 2-3 weeks ago, before admission to [facility]. Thus, agree that pt should be on anticoagulation. Discussed anticoagulant options other than eliquis. Daughter and patient are agreeable to start of anticogulant, but unsure which one and they will discuss with her other daughter and let us know. Likely pt will be dc to rehab facility later- thus ELIQUIS is likely better option. echo pending, will follow up START ELIQUIS 5MG PO BID DVT - Echocardiogram was done at [facility], still awaiting on records- thus neuro ordered echo again- will followup - Continue with diltiazem 240 mg daily, enalaprilat PRN SPIT OUT DILTIAZEM TODAY - Full dose Lovenox 100 g every 12 hours- TRANSITION OFF TO ELIQUIS 5MG PO BID START TODAY Hyperlipidemia - LDL 103, HDL 29 - LFTS slightly elevated. still ALT remains elevated on recheck. We'll not start any statins. Address this as an outpatient with PCP. Hypertension MONITOR TODAY Hypokalemia Denies diarrhea. on K replacements resolved now DVT prophylaxis with Lovenox need PT aggressively- need to encourage patient and try Discharge Planning per psychiatry team and family and patient Discharge Planning WILL PROBABLY GO TO SNF AT [place] Jonathon Key DO Jun 10, 2017 09:40
[2017-06-10] MEDS: APIXABAN 2.5 MG TABLET PO SCH ×2 (09:45→21:00)
[2017-06-10] MEDS: LORazepam 0.5 MG TAB age > 65 yrs PO PRN ×2 (12:43→20:58)
--- NOTE | 2017-06-10 16:07 | HHI.PYPN ---
Subjective Remarks Patient seen for follow-up, chart reviewed. Discussion she staff reported patient continues to be delusional, continuing auditory and visual hallucinations, paranoid and refusing medications. Patient was found lying in hospital bed, cooperative noted to be responding to internal stimuli and having conversations with self during interview. Patient continues to be paranoid area patient answering only concrete questions and that he was elaborate due to the preoccupied with responding to internal stimuli. [facility] patient was retained for involuntary hospitalization for further stabilization. Review of Systems Except as stated in HPI: all other systems reviewed are Neg Mental Status Examination Appearance: Disheveled (slightly improved) Consciousness: Alert (sleepy but arouses easily) Orientation: Person, Place Speech: Hesitant, Other (low-volume) Language: Other (making nonsensical statements at times but less so today) Fund of Knowledge: Poor Attention and Concentration: Inadequate Memory: Impaired Mood: Anxious Affect: Flat, Other (responding to internal stimuli throughout interview) Thought Process & Associations: Disorganized (less so today) Thought Content: Bizarre thinking (less so today), Hallucinations, Delusional Hallucination Type: Auditory, Visual, Other (appears internally stimulated) Delusion Type: Bizarre, Paranoid Suicidal Ideation: No Suicidal Plan: No Suicidal Intention: No Homicidal Ideation: No Homicidal Plan: No Homicidal Intention: No Insight: Poor Judgment: Poor Results Labs Labs reviewed Date/Time Source Procedure Growth Status 06/03/17 21:00 Urine Clean Catch Urine Culture - Final Klebsiella Pneumoniae Complete Vitals/IOs Vital Signs Date Time Temp Pulse Resp B/P (MAP) Pulse Ox O2 Delivery O2 Flow Rate FiO2 06/10/17 06:10 97.5 110 17 140/72 (94) 95 Intake and Output 06/10/17 06/10/17 06/11/17 08:00 16:00 00:00 Intake Total 0 ml 0 ml Balance 0 ml 0 ml Assessment & Plan Problem List: (1) Unspecified mood [affective] disorder ICD Codes: F39 - Unspecified mood [affective] disorder Status: Acute Assessment & Plan Patient at this time continues to be responding to internal stimuli and noted to be having conversations with himself. Patient continues to be disorganized as well as making nonsensical statements at times. Patient has not had any physical agitation or aggression toward staff and will continue without one-to- one observation sitter. We'll increase quetiapine 25/50/250mg for psychosis, continue rest of medications. Continue recommendations as per primary medical team. Will order mouth checks this patient has previously refuse medications or have them n her mouth without swallowing them. Discharge planning in progress Justification for Cont. Inpt. At risk for further decompensation if at lower level of care Discharge Planning To discharge back to her residence when psychiatrically medically stable Chucky Resendiz MD Jun 10, 2017 16:07
[2017-06-10 17:38] VITALS: BP 84/52; PULSE 97; RESP 20
[2017-06-10] MEDS: hydrOXYzine HCL 50 MG TAB PO PRN (18:13)
[2017-06-10] MEDS: QUEtiapine FUMARATE 100 MG TAB PO SCH (21:00)
[2017-06-11] MEDS: NYSTATIN 100,000 U/GM PWD 15 GM BTL TOPICAL SCH ×3 (05:29→22:00)
[2017-06-11 06:05] VITALS: BP 162/123; PULSE 112; RESP 16; O2SAT 96
[2017-06-11] MEDS: DILTIAZEM-CD 240 MG CAP ER PO SCH (08:47)
[2017-06-11] MEDS: POTASSIUM CHLORIDE 20 MEQ CONTROLLED RELEASE TAB PO SCH (08:47)
[2017-06-11] MEDS: QUEtiapine FUMARATE 25 MG TAB PO SCH ×3 (08:51→16:00)
[2017-06-11] MEDS: SULFAMETHOXAZOLE-TRIMETHOPRIM DS 800-160 MG TAB PO SCH ×2 (08:52→21:00)
[2017-06-11] MEDS: APIXABAN 2.5 MG TABLET PO SCH ×2 (08:52→12:03)
[2017-06-11] MEDS: CALCIUM CARBONATE 1.25 GM (CA 500 MG) TAB PO SCH ×2 (08:53→21:00)
--- NOTE | 2017-06-11 09:27 | HHI.PR ---
Subjective Remarks 1-4 SPIT OUT HER CARDIZEM WILL MONITOR FOR BLOOD PRESSURE AND HEARTRATE DW RN AND PT 1-5 no new complaints today Discussed with RN and patient Objective Vitals Vital Signs Date Time Temp Pulse Resp B/P (MAP) Pulse Ox O2 Delivery O2 Flow Rate FiO2 06/11/17 06:05 112 16 162/123 (136) 96 06/10/17 17:38 97 20 84/52 (63) I/O 06/10/17 06/10/17 06/10/17 06/11/17 06/11/17 06/11/17 07:00 15:00 23:00 07:00 15:00 23:00 Intake Total 0 ml 0 ml 480 ml 0 ml 120 ml Balance 0 ml 0 ml 480 ml 0 ml 120 ml Intake Oral 0 ml 0 ml 480 ml 0 ml 120 ml # Voids 2 5 2 Result Diagram: 06/09/17 0435 Other Results Laboratory Tests Test 06/09/17 04:35 Blood Urea Nitrogen 15 MG/DL Creatinine 0.56 MG/DL Random Glucose 89 MG/DL Calcium Level 8.9 MG/DL Sodium Level 139 MEQ/L Potassium Level 4.0 MEQ/L Chloride Level 105 MEQ/L Carbon Dioxide Level 25.9 MEQ/L Anion Gap 8 MEQ/L Estimat Glomerular Filtration Rate 108 ML/MIN Imaging Last Impressions Brain MRI 06/06/17 1625 Signed Impressions: Service Date/Time: Tuesday, June 06, 2017 17:41 - CONCLUSION: Chronic atrophic and small vessel ischemic changes without any evidence for acute hemorrhage or mass effect. Tate Lee MD Objective Remarks GENERAL: AWAKE AND ALERT TALKATIVE- A LITTLE COOPERATIVE- FOLLOWS SOME COMMANDS SKIN: Warm and dry. HEAD: Atraumatic. Normocephalic. EYES: Pupils equal and round. No scleral icterus. No injection or drainage. EOMI ENT: No nasal bleeding or discharge. Mucous membranes pink and moist. TONGUE IS MIDLINE NECK: Trachea midline. No JVD. SUPPLE CARDIOVASCULAR: Regular rate and rhythm. S1, S2 NO S3 OR S4 RESPIRATORY: No accessory muscle use. Clear to auscultation. Breath sounds equal bilaterally. GASTROINTESTINAL: Abdomen soft, non-tender, nondistended. Hepatic and splenic margins not palpable. MUSCULOSKELETAL: Extremities without clubbing, cyanosis, or edema. No obvious deformities. NEUROLOGICAL: Awake and alert. No obvious cranial nerve deficits. Motor grossly within normal limits. 4 out of 5 muscle strength in the arms and legs. Normal speech. PSYCHIATRIC: INAppropriate mood and affect; insight and judgment ABnormal. Procedures NONE Medications and IVs Current Medications Lorazepam (Ativan) 0.5 mg Q12H PRN PO MODERATE TO SEVERE ANXIETY Last administered on 06/10/17 20:58; Start 06/01/17 at 22:15 Lorazepam (Ativan Inj) 0.5 mg Q12H PRN IM MODERATE TO SEVERE ANXIETY Last administered on 06/05/17 08:25; Start 06/01/17 at 22:15 Hydroxyzine HCl (Atarax) 50 mg Q6H PRN PO ANXIETY Last administered on 18:13; Start 06/01/17 at 22:15 Diphenhydramine HCl (Benadryl) 50 mg Q6H PRN PO MILD ANXIETY, EPS Last administered on 06/08/17 23:35; Start 06/01/17 at 22:15 Diphenhydramine HCl (Benadryl Inj) 50 mg Q6H PRN IM MILD ANXIETY, EPS Last administered on 06/03/17 17:22; Start 06/01/17 at 22:15 Diphenhydramine HCl (Benadryl) 50 mg HS PRN PO INSOMNIA; Start 06/01/17 at 22: 15 Diphenhydramine HCl (Benadryl Inj) 50 mg HS PRN IM INSOMNIA; Start 06/01/17 at 22:15 Acetaminophen (Tylenol) 650 mg Q4H PRN PO Pain 1-5 or Temp >101F; Start at 22:15 Magnesium Hydroxide (Milk Of Magnesia Liq) 30 ml DAILY PRN PO CONSTIPATION; Start 06/01/17 at 22:15 Al Hydrox/Mg Hydrox/Simethicone (Mag-Al Plus Susp Liq) 30 ml Q6H PRN PO DYSPEPSIA; Start 06/01/17 at 22:15 Calcium Carbonate (Oscal) 500 mg BID PO Last administered on 06/11/17 08:53; Start 06/02/17 at 09:00 Diltiazem HCl (Cardizem Cd) 240 mg DAILY PO Last administered on 06/11/17 08:47 ; Start 06/02/17 at 09:00 Enoxaparin Sodium (Lovenox Inj) 100 mg Q12H SQ Last administered on 06/09/17at 21 :11; Start 06/01/17 at 23:00; Stop 06/10/17 at 09:40; Status DC Quetiapine Fumarate (SEROquel) 50 mg BID PO Last administered on 06/02/17 19: 57; Start 06/02/17 at 09:00; Stop 06/03/17 at 08:07; Status DC Enalaprilat (Vasotec Inj) 1.25 mg Q6H PRN IV PUSH HYPERTENSION; Start at 22:30 Potassium Bicarb/ Potassium Chloride (K-Lyte Cl Eff) 25 meq ONCE ONCE PO ; Start 06/02/17 at 16:00; Stop 06/02/17 at 16:01; Status DC Quetiapine Fumarate (SEROquel) 75 mg BID PO Last administered on 06/03/17 20: 28; Start 06/03/17 at 09:00; Stop 06/04/17 at 10:26; Status DC Potassium Bicarbonate (Effer-K Eff) 50 meq ONCE ONCE PO ; Start 06/03/17 at 09 :30; Stop 06/03/17 at 13:00; Status DC Potassium Bicarb/ Potassium Chloride (K-Lyte Cl Eff) 50 meq ONCE ONCE PO Last administered on 06/03/17 13:28; Start 06/03/17 at 13:00; Stop 06/03/17 at 13:01; Status DC Potassium Bicarb/ Potassium Chloride (K-Lyte Cl Eff) 50 meq ONCE ONCE PO Last administered on 06/04/17 10:16; Start 06/04/17 at 09:00; Stop 06/04/17 at 09:01; Status DC Ciprofloxacin (Cipro) 500 mg Q12H PO Last administered on 06/08/17at 12:47; Start 06/04/17 at 13:00; Stop 06/08/17 at 12:56; Status DC Quetiapine Fumarate (SEROquel) 100 mg BID PO Last administered on 06/07/17at 09: 26; Start 06/04/17 at 21:00; Stop 06/07/17 at 10:07; Status DC Haloperidol Lactate (Haldol Inj) 5 mg STK-MED ONCE .ROUTE Last administered on 06/04/17 11:30; Start 06/04/17 at 11:23; Stop 06/04/17 at 11:24; Status DC Lorazepam (Ativan Inj) 1 mg NOW ONCE IM Last administered on 06/04/17 11:30 ; Start 06/04/17 at 12:00; Stop 06/04/17 at 12:01; Status DC Haloperidol Lactate (Haldol Inj) 5 mg STK-MED ONCE .ROUTE ; Start 06/04/17 at 17:30; Stop 06/04/17 at 17:31; Status DC Haloperidol Lactate (Haldol Inj) 5 mg ONCE ONCE IM Last administered on 17:40; Start 06/04/17 at 18:15; Stop 06/04/17 at 18:16; Status DC Lorazepam (Ativan Inj) 2 mg ONCE ONCE IM Last administered on 06/04/17 17:40 ; Start 06/04/17 at 18:15; Stop 06/04/17 at 18:16; Status DC Potassium Bicarb/ Potassium Chloride (K-Lyte Cl Eff) 50 meq ONCE ONCE PO Last administered on 06/05/17 12:15; Start 06/05/17 at 12:15; Stop 06/05/17 at 12:16; Status DC Haloperidol Lactate (Haldol Inj) 2 mg ONCE ONCE IM Last administered on 18:30; Start 06/05/17 at 18:30; Stop 06/05/17 at 18:31; Status DC Lorazepam (Ativan Inj) 1 mg ONCE ONCE IM Last administered on 06/05/17 18:30 ; Start 06/05/17 at 18:30; Stop 06/05/17 at 18:31; Status DC Nystatin (Mycostatin Powder) 1 applic Q8HR TOPICAL Last administered on at 05:29; Start 06/05/17 at 22:00; Stop 06/12/17 at 21:59 Potassium Chloride (KCl) 20 meq DAILY PO Last administered on 06/11/17at 08:47; Start 06/06/17 at 11:45 Potassium Chloride (KCl) 40 meq ONCE ONCE PO Last administered on 06/06/17 15:11; Start 06/06/17 at 14:00; Stop 06/06/17 at 14:01; Status DC Gadodiamide (Omniscan Pf Inj) 20 ml STK-MED ONCE IVCONTRAST Last administered on 06/06/17t 18:18; Start 06/06/17 at 18:18; Stop 06/06/17 at 18:19; Status DC Quetiapine Fumarate (SEROquel) 200 mg HS PO Last administered on 06/07/17at 22:55 ; Start 06/07/17 at 21:00; Stop 06/08/17 at 10:25; Status DC Quetiapine Fumarate (SEROquel) 25 mg DAILY PO Last administered on 06/08/17at 09: 42; Start 06/08/17 at 09:00; Stop 06/08/17 at 10:25; Status DC Potassium Chloride (KCl) 40 meq ONCE ONCE PO Last administered on 06/07/17at 20: 30; Start 06/07/17 at 20:30; Stop 06/07/17 at 20:31; Status DC Aspirin (Aspirin) 81 mg DAILY PO ; Start 06/08/17 at 09:00; Stop 06/08/17 at 09:00 ; Status DC Quetiapine Fumarate (SEROquel) 225 mg HS PO ; Start 06/08/17 at 21:00; Status Cancel Quetiapine Fumarate (SEROquel) 25 mg BID@0900,1600 PO Last administered on at 09:00; Start 06/08/17 at 16:00; Stop 06/10/17 at 10:10; Status DC Patient Medication Teaching (Coumadin Booklet) 1 ONCE ONCE OTHER ; Start at 16:00; Stop 06/08/17 at 16:01; Status DC Trimethoprim/ Sulfamethoxazole (Bactrim Ds 800-160 Mg) 1 tab Q12HR PO Last administered on 06/11/17at 08:52; Start 06/08/17 at 21:00; Stop 06/11/17 at 21:00 Quetiapine Fumarate (SEROquel) 200 mg HS PO Last administered on 06/09/17at 20:40 ; Start 06/08/17 at 21:00; Stop 06/10/17 at 10:10; Status DC Quetiapine Fumarate (SEROquel) 25 mg HS PO Last administered on 06/09/17at 20:40 ; Start 06/08/17 at 21:00; Stop 06/10/17 at 10:10; Status DC Apixaban (Eliquis) 5 mg BID PO Last administered on 06/11/17at 08:52; Start at 09:45 Quetiapine Fumarate (SEROquel) 250 mg HS PO Last administered on 06/10/17at 21:00 ; Start 06/10/17 at 21:00 Quetiapine Fumarate (SEROquel) 25 mg DAILY PO Last administered on 06/11/17at 08: 51; Start 06/11/17 at 09:00 Quetiapine Fumarate (SEROquel) 50 mg DAILY@1600 PO Last administered on at 16:00; Start 06/10/17 at 16:00 A/P Problem List: (1) HTN (hypertension) ICD Code: I10 - Essential (primary) hypertension (2) CVA (cerebral vascular accident) ICD Code: I63.9 - Cerebral infarction, unspecified (3) Chronic a-fib ICD Code: I48.2 - Chronic atrial fibrillation (4) Urinary tract infection due to Klebsiella species ICD Code: N39.0 - Urinary tract infection, site not specified; B96.1 - Klebsiella pneumoniae [K. pneumoniae] as the cause of diseases classified elsewhere Status: Acute Assessment and Plan Impression/ Plan: Altered mental status. Workup per neurology. RPR is positive. Treponemal antibodies FTA-ABS IS NEGATIVE CT brain done at [facility] in May 25, 2017. No evidence of intracranial abnormalities. Mild volume loss age appropriate. Mild chronic small vessel ischemic changes. Chronic lacunar infarct. Chronic left cerebellar infarcts. MRI and MRA was done there.Records are not in chart. Per hospitalist note from [facility], no acute findings on those studies. MRI June 06, 2017. Chronic atrophic and small vessel ischemic changes. No evidence of acute infarct/hemorrhage/mass effects Atrial Fibrillation Chronic. Patient was on ANTICOAGULATION previously. Family is refusing blood thinners thinking that this is the cause of her confusion. Currently patient is on Lovenox therapeutic dose per neurology. Agree with this. She is a high risk for CVA and blood clots due to history of DVT and A. fib. Discussed with patient, her daughter and her nurse today extensively. Both daughter and nurse stated pt in fact is quite steady,walking without assistance. Used to live on her own up until about 2-3 weeks ago, before admission to [facility]. Thus, agree that pt should be on anticoagulation. Discussed anticoagulant options other than eliquis. Daughter and patient are agreeable to start of anticogulant, but unsure which one and they will discuss with her other daughter and let us know. Likely pt will be dc to rehab facility later- thus ELIQUIS is likely better option. echo pending, will follow up START ELIQUIS 5MG PO BID DVT - Echocardiogram was done at [facility], still awaiting on records- thus neuro ordered echo again- will followup - Continue with diltiazem 240 mg daily, enalaprilat PRN SPIT OUT DILTIAZEM TODAY - Full dose Lovenox 100 g every 12 hours- TRANSITION OFF TO ELIQUIS 5MG PO BID START TODAY Hyperlipidemia - LDL 103, HDL 29 - LFTS slightly elevated. still ALT remains elevated on recheck. We'll not start any statins. Address this as an outpatient with PCP. Hypertension MONITOR TODAY Hypokalemia Denies diarrhea. on K replacements resolved now DVT prophylaxis with Lovenox need PT aggressively- need to encourage patient and try Discharge Planning per psychiatry team and family and patient Discharge Planning WILL PROBABLY GO TO SNF AT MD Jonathon Key DO Jun 11, 2017 09:27
--- NOTE | 2017-06-11 09:57 | HHI.PYPN ---
Subjective Remarks Patient seen for follow-up, chart review. Discussion she staff reported the patient refused medications last night but that shower earlier this morning a breakfast. Patient was found sitting hospital bed noted to be calm and cooperative also noted to be very hypervigilant with everyone else passing by the room with paranoid ideations. Patient states "you're trying to confuse me" when attempting to ask her questions. Patient states that her mood has been "quiet", she continues to be somewhat disorganized during interview with paranoia stating "they're trying to trick me". Patient denies any perceptual disturbances today but is having some loosening associations and hypervigilance during interview. Review of Systems Except as stated in HPI: all other systems reviewed are Neg Mental Status Examination Appearance: Disheveled (slightly improved) Consciousness: Alert (sleepy but arouses easily) Orientation: Person, Place Speech: Hesitant, Other (low-volume) Language: Other (making nonsensical statements at times but less so today) Fund of Knowledge: Poor Attention and Concentration: Inadequate Memory: Impaired Mood: Anxious Affect: Flat, Other (responding to internal stimuli throughout interview) Thought Process & Associations: Loose associations, Disorganized (less so today ) Thought Content: Bizarre thinking (less so today), Hallucinations, Delusional Hallucination Type: Auditory (denies today), Visual (denies today), Other ( appears internally stimulated) Delusion Type: Bizarre, Paranoid Suicidal Ideation: No Suicidal Plan: No Suicidal Intention: No Homicidal Ideation: No Homicidal Plan: No Homicidal Intention: No Insight: Poor Judgment: Poor Results Labs Labs reviewed Date/Time Source Procedure Growth Status 06/03/17 21:00 Urine Clean Catch Urine Culture - Final Klebsiella Pneumoniae Complete Vitals/IOs Vital Signs Date Time Temp Pulse Resp B/P (MAP) Pulse Ox O2 Delivery O2 Flow Rate FiO2 06/11/17 06:05 112 16 162/123 (136) 96 06/10/17 06:10 97.5 Intake and Output 06/11/17 06/11/17 06/12/17 08:00 16:00 00:00 Intake Total 120 ml Balance 120 ml Assessment & Plan Problem List: (1) Unspecified mood [affective] disorder ICD Codes: F39 - Unspecified mood [affective] disorder Status: Acute Assessment & Plan Patient at this time continues to be noted to be disorganized, with loosening associations and very paranoid with hypervigilance throughout interview. Patient at times would make statements referring to her paranoia. Patient denies any auditory hallucinations today and noted to have less response to internal stimuli denying any perceptual disturbances today. Patient has been seen in the past 2 pocket her medications her mouth which mouth checks have been ordered to assure compliance. We'll increase quetiapine to 50/50/275 for psychosis. Continue with some medications continue to encourage patient to be compliant with her medications as her blood pressure has been elevated recently , likely secondary to her nonadherence to antihypertensives. Continue to monitor mood and behavior. Discharge planning in progress Justification for Cont. Inpt. At risk for further decompensation if at lower level of care Discharge Planning To be discharged back to her home when psychiatrically stable Chucky Resendiz MD Jun 11, 2017 09:57
[2017-06-11 10:00] VITALS: BP 139/75; PULSE 113
[2017-06-11 18:00] VITALS: BP 144/96; PULSE 116; RESP 16; O2SAT 96
[2017-06-11] MEDS: QUEtiapine FUMARATE 100 MG TAB PO SCH (21:00)
[2017-06-12] MEDS ORDERED: OLANZapine IM 10 MG VIAL IM ONE ×2 (03:33→07:09)
[2017-06-12] MEDS ORDERED: OLANZapine IM 10 MG VIAL IM SCH (03:45)
[2017-06-12] MEDS: NYSTATIN 100,000 U/GM PWD 15 GM BTL TOPICAL SCH ×2 (05:19→14:00)
[2017-06-12 05:37] VITALS: BP 204/94; PULSE 105; RESP 16; TEMP 97.8; O2SAT 97
[2017-06-12] MEDS ORDERED: HALOPERIDOL LACTATE 5 MG/ML AMP IM ONE (07:30)
[2017-06-12] MEDS ORDERED: LORazepam 2 MG/ML VIAL IM ONE (07:30)
--- NOTE | 2017-06-12 08:05 | HHI.PR ---
Subjective Remarks Patient in bed appears in nad. No n/v/d/c. No fever or chills. Eating fairly well. Objective Vitals Vital Signs Date Time Temp Pulse Resp B/P (MAP) Pulse Ox O2 Delivery O2 Flow Rate FiO2 06/12/17 05:37 97.8 105 16 204/94 (130) 97 06/11/17 18:00 116 16 144/96 (112) 96 06/11/17 10:00 113 139/75 (96) I/O 06/11/17 06/11/17 06/11/17 06/12/17 06/12/17 06/12/17 07:00 15:00 23:00 07:00 15:00 23:00 Intake Total 0 ml 240 ml 120 ml 0 ml Balance 0 ml 240 ml 120 ml 0 ml Intake Oral 0 ml 240 ml 120 ml 0 ml # Voids 2 1 Result Diagram: 06/09/17 0435 Imaging Last Impressions Brain MRI 06/06/17 1625 Signed Impressions: Service Date/Time: Tuesday, June 06, 2017 17:41 - CONCLUSION: Chronic atrophic and small vessel ischemic changes without any evidence for acute hemorrhage or mass effect. Tate Lee MD Objective Remarks GENERAL: Awake and alert. CARDIOVASCULAR: Regular rate and rhythm. S1, S2 NO S3 OR S4 RESPIRATORY: No accessory muscle use. Clear to auscultation. Breath sounds equal bilaterally. GASTROINTESTINAL: Abdomen soft, non-tender, nondistended. Hepatic and splenic margins not palpable. MUSCULOSKELETAL: Extremities without clubbing, cyanosis, or edema. No obvious deformities. NEUROLOGICAL: Awake and alert. No obvious cranial nerve deficits. Motor grossly within normal limits. 4 out of 5 muscle strength in the arms and legs. Normal speech. PSYCHIATRIC: Inappropriate mood and affect; insight and judgment Abnormal. Procedures NONE A/P Problem List: (1) HTN (hypertension) ICD Code: I10 - Essential (primary) hypertension (2) CVA (cerebral vascular accident) ICD Code: I63.9 - Cerebral infarction, unspecified (3) Chronic a-fib ICD Code: I48.2 - Chronic atrial fibrillation (4) Urinary tract infection due to Klebsiella species ICD Code: N39.0 - Urinary tract infection, site not specified; B96.1 - Klebsiella pneumoniae [K. pneumoniae] as the cause of diseases classified elsewhere Status: Acute Assessment and Plan Altered mental status. Workup per neurology. RPR is positive. Treponemal antibodies FTA-ABS IS NEGATIVE CT brain done at [facility] in May 25, 2017. No evidence of intracranial abnormalities. Mild volume loss age appropriate. Mild chronic small vessel ischemic changes. Chronic lacunar infarct. Chronic left cerebellar infarcts. MRI and MRA was done there.Records are not in chart. Per hospitalist note from [facility], no acute findings on those studies. MRI June 06, 2017. Chronic atrophic and small vessel ischemic changes. No evidence of acute infarct/hemorrhage/mass effects Atrial Fibrillation Chronic. Patient was on ANTICOAGULATION previously. Family is refusing blood thinners thinking that this is the cause of her confusion. Currently patient is on Lovenox therapeutic dose per neurology. Agree with this. She is a high risk for CVA and blood clots due to history of DVT and A. fib. Discussed with patient, her daughter and her nurse today extensively. Both daughter and nurse stated pt in fact is quite steady,walking without assistance. Used to live on her own up until about 2-3 weeks ago, before admission to [facility]. Thus, agree that pt should be on anticoagulation. Discussed anticoagulant options other than eliquis. Daughter and patient are agreeable to start of anticogulant, but unsure which one and they will discuss with her other daughter and let us know. Likely pt will be dc to rehab facility later- thus ELIQUIS is likely better option. echo pending, will follow up START ELIQUIS 5MG PO BID DVT - Echocardiogram was done at [facility], still awaiting on records- thus neuro ordered echo again- will followup - Continue with diltiazem 240 mg daily, enalaprilat PRN SPIT OUT DILTIAZEM TODAY - Full dose Lovenox 100 g every 12 hours- TRANSITION OFF TO ELIQUIS 5MG PO BID START TODAY Hyperlipidemia - LDL 103, HDL 29 - LFTS slightly elevated. still ALT remains elevated on recheck. We'll not start any statins. Address this as an outpatient with PCP. Hypertension. Monitor . prn meds Hypokalemia Denies diarrhea. on K replacements resolved now DVT prophylaxis with Lovenox need PT aggressively- need to encourage patient Discharge Planning per psychiatry team and family and patient Discharge Planning WILL PROBABLY GO TO SNF AT MD Jaimie Krause MD Jun 12, 2017 08:05
[2017-06-12] MEDS: DILTIAZEM-CD 240 MG CAP ER PO SCH (09:00)
[2017-06-12] MEDS: POTASSIUM CHLORIDE 20 MEQ CONTROLLED RELEASE TAB PO SCH (09:00)
[2017-06-12] MEDS: CALCIUM CARBONATE 1.25 GM (CA 500 MG) TAB PO SCH ×2 (09:00→21:30)
[2017-06-12] MEDS: QUEtiapine FUMARATE 25 MG TAB PO SCH ×2 (09:00→16:00)
[2017-06-12] MEDS: APIXABAN 2.5 MG TABLET PO SCH (09:00)
--- NOTE | 2017-06-12 13:16 | HHI.PYPN ---
Subjective Remarks According to nursing report, patient has been decompensating since being placed back on [facility] [place]. Taking her clothes off. Hallucinating. Confused. Etc. Review of Systems ROS Limitations: Clinical Condition Psychiatric: COMPLAINS OF: Confusion Except as stated in HPI: all other systems reviewed are Neg Mental Status Examination Appearance: Disheveled (slightly improved) Consciousness: Alert (sleepy but arouses easily) Orientation: Person Motor Activity: Normal gait Speech: Hesitant, Other (low-volume) Language: Other (making nonsensical statements at times but less so today) Fund of Knowledge: Poor Attention and Concentration: Inadequate Memory: Impaired Mood: Anxious Affect: Flat, Other (responding to internal stimuli throughout interview) Thought Process & Associations: Loose associations, Disorganized (less so today ) Thought Content: Bizarre thinking (less so today), Hallucinations, Delusional Hallucination Type: Auditory (denies today), Visual (denies today), Other ( appears internally stimulated) Delusion Type: Bizarre, Paranoid Suicidal Ideation: No Suicidal Plan: No Suicidal Intention: No Homicidal Ideation: No Homicidal Plan: No Homicidal Intention: No Insight: Poor Judgment: Poor Results Labs Date/Time Source Procedure Growth Status 06/03/17 21:00 Urine Clean Catch Urine Culture - Final Klebsiella Pneumoniae Complete Vitals/IOs Vital Signs Date Time Temp Pulse Resp B/P (MAP) Pulse Ox O2 Delivery O2 Flow Rate FiO2 06/12/17 05:37 97.8 105 16 204/94 (130) 97 Intake and Output 06/12/17 06/12/17 06/13/17 08:00 16:00 00:00 Intake Total 0 ml Balance 0 ml Assessment & Plan Problem List: (1) Unspecified mood [affective] disorder ICD Codes: F39 - Unspecified mood [affective] disorder Status: Acute Assessment & Plan Estimated LOS: days. Reconsult hospitalist and hold eloquis for now. Justification for Cont. Inpt. Unable to care for self Chip De Los Santos MD Jun 12, 2017 13:16
[2017-06-12 18:00] VITALS: BP 138/64; PULSE 112; RESP 16; TEMP 98.1; O2SAT 94
[2017-06-12] MEDS: QUEtiapine FUMARATE 100 MG TAB PO SCH (21:30)
[2017-06-12] MEDS: hydrOXYzine HCL 50 MG TAB PO PRN (21:30)
[2017-06-13 06:48] VITALS: BP 127/96; PULSE 122; RESP 16; TEMP 97.4; O2SAT 96
[2017-06-13] MEDS: POTASSIUM CHLORIDE 20 MEQ CONTROLLED RELEASE TAB PO SCH (09:00)
[2017-06-13] MEDS: DILTIAZEM-CD 240 MG CAP ER PO SCH (09:51)
[2017-06-13] MEDS: QUEtiapine FUMARATE 25 MG TAB PO SCH ×2 (09:52→16:00)
[2017-06-13] MEDS: CALCIUM CARBONATE 1.25 GM (CA 500 MG) TAB PO SCH ×3 (09:55→21:00)
--- NOTE | 2017-06-13 12:05 | HHI.PR ---
Subjective Remarks Follow-up visit A. fib, DVT, HTN, CVA, encephalopathy. Patient seen and examined today sitting in bed. Awake and alert. Oriented to place, year, and person. States she is feeling better. Denies pain and discomfort. Denies SOB / dyspnea. Denies chest pain, palpitations, headaches, dizziness. Denies fevers , chills, n/v/d. Denies dysuria. Objective Vitals Vital Signs Date Time Temp Pulse Resp B/P (MAP) Pulse Ox O2 Delivery O2 Flow Rate FiO2 06/13/17 06:48 97.4 122 16 127/96 (106) 96 06/12/17 18:00 98.1 112 16 138/64 (88) 94 I/O 06/12/17 06/12/17 06/12/17 06/13/17 06/13/17 06/13/17 07:00 15:00 23:00 07:00 15:00 23:00 Intake Total 0 ml 240 ml 200 ml 160 ml Balance 0 ml 240 ml 200 ml 160 ml Intake Oral 0 ml 240 ml 200 ml 160 ml # Voids 1 4 1 Result Diagram: 06/09/17 0435 Imaging Last Impressions Brain MRI 06/06/17 1625 Signed Impressions: Service Date/Time: Tuesday, June 06, 2017 17:41 - CONCLUSION: Chronic atrophic and small vessel ischemic changes without any evidence for acute hemorrhage or mass effect. Tate Lee MD Objective Remarks GENERAL: This is a well-nourished, well-developed patient, in no apparent distress. SKIN: Warm and dry. HEAD: Normocephalic. No temporal or scalp tenderness. EYES: Pupils equal round and reactive. No scleral icterus. No injection or drainage. ENT: Nose without bleeding. Airway patent. NECK: Trachea midline. CARDIOVASCULAR: Irregular rate and rhythm without murmurs, gallops, or rubs. RESPIRATORY: Breath sounds equal bilaterally. No wheezes, rales, or rhonchi. GASTROINTESTINAL: Abdomen soft, non-tender, nondistended. No guarding. Bowel sounds active 4. MUSCULOSKELETAL: Extremities without clubbing, cyanosis, or edema. NEUROLOGICAL: Awake and alert. THOMAS. Oriented to year, place, person. Normal speech. Procedures NONE A/P Problem List: (1) HTN (hypertension) ICD Code: I10 - Essential (primary) hypertension (2) CVA (cerebral vascular accident) ICD Code: I63.9 - Cerebral infarction, unspecified (3) Chronic a-fib ICD Code: I48.2 - Chronic atrial fibrillation (4) Urinary tract infection due to Klebsiella species ICD Code: N39.0 - Urinary tract infection, site not specified; B96.1 - Klebsiella pneumoniae [K. pneumoniae] as the cause of diseases classified elsewhere Status: Acute Assessment and Plan Patient is a 67 year old female with primary medical history of A. fib, DVT in the lower extremity, HTN, CVA who came into the hospital as a transfer from [facility] for confusion, altered mental status and thoughts of ending her life. Hallucinations, mood disorder - Managed by psychiatry team. Continue on Seroquel, Benadryl Encephalopathy, acute CT at [facility] - No evidence of intracranial abnormalities. Mild volume loss age appropriate. Mild chronic small vessel ischemic changes. Chronic lacunar infarct. Chronic left cerebellar infarcts. MRI and MRA was done there.Records are not in chart. Per hospitalist note from [facility] , no acute findings on those studies. - Change in mental status with increasing hallucinations and psychosis also been transiently lost of motion and being slump over the corner. Daughter states it was from Eliquis, highly unlikely that eliquis may have caused increase psychosis or AMS. There is a possibility that patient may have mini strokes due to not taking Eliquis for several days prior to being hospitalized at [facility]. - Neurology consulted for further evaluation and recommendations. - EEG Mild background slowing consistent with encephalopathic process. No evidence of any epileptiform features. - MRI 06/06/17 showed Chronic atrophic and small vessel ischemic changes. No evidence of acute infarct/hemorrhage/mass effects - Neurochecks every 4 hours - Speech Therapy eval and treat - Ammonia level 31 -->24 - Positive RPR, Positive RF, ESR elevated. Treponema Pallidum negative. - Continue reorientation. Improving mental status. Urinary tract infection - UA positive, cultures came back Klebsiella. Sensitive to Cipro - Cipro completed 06/08/17 A. fib, chronic HTN DVT - previous EKG reviewed, ST 111 HR - Previously on Eliquis, [id number] risk score 5 (female, >65, HTN, Hx DVT) - Continue with diltiazem 240 mg daily, enalaprilat PRN - ECHO results showed The left ventricular systolic function is normal with an estimated ejection fraction in the range of 55-60%. Normal left ventricular size. Wall thickness is normal. - Previously was on Full dose Lovenox 100 g every 12 hours, switched back to Eliquis 5 mg twice a day however psychiatry deemed that patient decompensates with use of Eliquis even though the daughter has agreed to start anticoagulation. - We'll switch over to Xarelto 20 mg daily. Monitor for any psychiatric changes. - LDL 103, HDL 29. LFTS slightly elevated. Recheck in 2 days. Start statin if LFTs improved. May start in outpatient. Heart healthy diet. Hypokalemia - Potassium replacements. Occasionally refuses medication - Monitor potassium levels. - Mag 2.3 - Antipsychotic drugs such as risperidone and quetiapine may cause hypokalemia. DVT prop Xarelto Discussed with nursing Marine Dang Jun 13, 2017 12:05
[2017-06-13] MEDS: diphenhydrAMINE HCL 50 MG/ML VIAL IM PRN (12:44)
[2017-06-13] MEDS ORDERED: RIVAROXABAN 20 MG TAB PO ONE (13:30)
--- NOTE | 2017-06-13 16:31 | HHI.PYPN ---
Subjective Remarks Patient was seen and case discussed with nursing. Patient is pleasant and cooperative with exam. She appears confused the delayed thought process. Affect is quite flat. Insight is poor. She denies any psychotic symptoms. Compliant with her medications and tolerating it well Mental Status Examination Appearance: Disheveled (slightly improved) Consciousness: Alert (sleepy but arouses easily) Orientation: Person Motor Activity: Normal gait Speech: Hesitant, Other (low-volume) Language: Other (making nonsensical statements at times but less so today) Fund of Knowledge: Poor Attention and Concentration: Inadequate Memory: Impaired Mood: Anxious Affect: Flat Thought Process & Associations: Loose associations, Disorganized (less so today ) Thought Content: Bizarre thinking (less so today), Hallucinations, Delusional Hallucination Type: Auditory (denies today), Visual (denies today), Other ( appears internally stimulated) Delusion Type: Bizarre, Paranoid Suicidal Ideation: No Suicidal Plan: No Suicidal Intention: No Homicidal Ideation: No Homicidal Plan: No Homicidal Intention: No Insight: Poor Judgment: Poor Results Labs Date/Time Source Procedure Growth Status 06/03/17 21:00 Urine Clean Catch Urine Culture - Final Klebsiella Pneumoniae Complete Vitals/IOs Vital Signs Date Time Temp Pulse Resp B/P (MAP) Pulse Ox O2 Delivery O2 Flow Rate FiO2 06/13/17 06:48 97.4 122 16 127/96 (106) 96 Intake and Output 06/13/17 06/13/17 06/14/17 08:00 16:00 00:00 Intake Total 160 ml Balance 160 ml Assessment & Plan Problem List: (1) Unspecified mood [affective] disorder ICD Codes: F39 - Unspecified mood [affective] disorder Status: Acute Assessment & Plan Continue current treatment plan Justification for Cont. Inpt. Patient will decompensate in a less restrictive setting Horace Jade DO Jun 13, 2017 16:31
[2017-06-13 17:56] VITALS: BP 134/58; PULSE 98; TEMP 98.7; O2SAT 99
[2017-06-13] MEDS: QUEtiapine FUMARATE 100 MG TAB PO SCH ×2 (20:46→21:00)
[2017-06-14] MEDS: LORazepam 2 MG/ML VIAL - age > 65 yrs IM PRN (05:03)
[2017-06-14 05:31] VITALS: BP 149/90; PULSE 111; RESP 14; TEMP 97.8; O2SAT 98
[2017-06-14] MEDS: CALCIUM CARBONATE 1.25 GM (CA 500 MG) TAB PO SCH ×2 (08:02→21:00)
[2017-06-14] MEDS: QUEtiapine FUMARATE 25 MG TAB PO SCH ×3 (08:02→21:00)
[2017-06-14] MEDS: POTASSIUM CHLORIDE 20 MEQ CONTROLLED RELEASE TAB PO SCH (08:02)
[2017-06-14] MEDS: DILTIAZEM-CD 240 MG CAP ER PO SCH (08:02)
[2017-06-14] MEDS: RIVAROXABAN 20 MG TAB PO SCH (08:50)
--- NOTE | 2017-06-14 09:42 | HHI.PR ---
Subjective Remarks Follow-up visit A. fib, DVT, HTN, CVA, encephalopathy. Patient seen ambulating in hallway, examined in her room. She denies any SOB, diarrhea, repots two fevers, and nausea when she takes her pills, states they get stuck in her throat and then they expand. Spoke with nurse who states patient has not had any fevers and is taking her pills crushed. No coughing or choking per nurse. Nurse repots redness in groin folds. Objective Vitals Vital Signs Date Time Temp Pulse Resp B/P (MAP) Pulse Ox O2 Delivery O2 Flow Rate FiO2 06/14/17 05:31 97.8 111 14 149/90 (109) 98 06/13/17 17:56 98.7 98 134/58 (83) 99 I/O 06/13/17 06/13/17 06/13/17 06/14/17 06/14/17 06/14/17 07:00 15:00 23:00 07:00 15:00 23:00 Intake Total 160 ml 240 ml Balance 160 ml 240 ml Intake Oral 160 ml 240 ml # Voids 1 Imaging Last Impressions Brain MRI 06/06/17 1625 Signed Impressions: Service Date/Time: Tuesday, June 06, 2017 17:41 - CONCLUSION: Chronic atrophic and small vessel ischemic changes without any evidence for acute hemorrhage or mass effect. Tate Lee MD Objective Remarks GENERAL: This is a well-nourished, well-developed patient, in no apparent distress. SKIN: Warm and dry. HEAD: Normocephalic. No temporal or scalp tenderness. EYES: Pupils equal round and reactive. No scleral icterus. No injection or drainage. ENT: Nose without bleeding. Airway patent. NECK: Trachea midline. CARDIOVASCULAR: Irregular rate and rhythm without murmurs, gallops, or rubs. RESPIRATORY: Breath sounds equal bilaterally. No wheezes, rales, or rhonchi. GASTROINTESTINAL: Abdomen soft, non-tender, nondistended. No guarding. Bowel sounds active 4. MUSCULOSKELETAL: Extremities without clubbing, cyanosis, or edema. NEUROLOGICAL: Awake and alert. Ambulating without difficulties, moves all extremities. Oriented to person. Normal soft spoken with normal speech. Procedures NONE A/P Problem List: (1) HTN (hypertension) ICD Code: I10 - Essential (primary) hypertension (2) CVA (cerebral vascular accident) ICD Code: I63.9 - Cerebral infarction, unspecified (3) Chronic a-fib ICD Code: I48.2 - Chronic atrial fibrillation (4) Urinary tract infection due to Klebsiella species ICD Code: N39.0 - Urinary tract infection, site not specified; B96.1 - Klebsiella pneumoniae [K. pneumoniae] as the cause of diseases classified elsewhere Status: Acute Assessment and Plan Patient is a 67 year old female with primary medical history of A. fib, DVT in the lower extremity, HTN, CVA who came into the hospital as a transfer from [facility] for confusion, altered mental status and thoughts of ending her life. Hallucinations, mood disorder - Managed by psychiatry team. Continue on Seroquel, Benadryl Encephalopathy, acute CT at [facility] (05/25/17) - No evidence of intracranial abnormalities. Mild volume loss age appropriate. Mild chronic small vessel ischemic changes. Chronic lacunar infarct. Chronic left cerebellar infarcts. MRI and MRA was done there.Records are not in chart. Per hospitalist note from [facility], no acute findings on those studies. - MRA neck W/O contrast (05/25/17) reviewed today: No hemodynamically significant stenosis of major arteries of the neck. - MRA head W/O contrast ( 05/25/17) reviewed today: Normal MRA of head - MRI brain W/O contrast (05/25/17) reviewed today: No acute infarction or other acute intracranial pathology - Change in mental status with increasing hallucinations and psychosis also been transiently lost of motion and being slump over the corner. Daughter states it was from Eliquis, highly unlikely that eliquis may have caused increase psychosis or AMS. There is a possibility that patient may have mini strokes due to not taking Eliquis for several days prior to being hospitalized at [facility]. - Neurology consulted for further evaluation and recommendations. - EEG Mild background slowing consistent with encephalopathic process. No evidence of any epileptiform features. - MRI 06/06/17 showed Chronic atrophic and small vessel ischemic changes. No evidence of acute infarct/hemorrhage/mass effects - Neurochecks every 4 hours - Speech Therapy eval and treat - Ammonia level 31 -->24 - Positive RPR, Positive RF, ESR elevated. Treponema Pallidum negative. - Continue reorientation. Improving mental status. Urinary tract infection - UA positive, cultures came back Klebsiella. Sensitive to Cipro - Cipro completed 06/08/17 A. fib, chronic HTN DVT - Previous EKG reviewed, ST 111 HR - Previously on Eliquis, [id number] risk score 5 (female, >65, HTN, Hx DVT) - Continue with diltiazem 240 mg daily - HR 111 this AM with BP 149/90, will add Metoprolol 12.5mg for BP control, continue monitoring trend - ECHO results showed The left ventricular systolic function is normal with an estimated ejection fraction in the range of 55-60%. Normal left ventricular size. Wall thickness is normal. - Previously was on Full dose Lovenox 100 g every 12 hours, switched back to Eliquis 5 mg twice a day however psychiatry deemed that patient decompensates with use of Eliquis even though the daughter has agreed to start anticoagulation. - Switched to Xarelto 20 mg daily. Monitor for any psychiatric changes. - LDL 103, HDL 29. LFTS slightly elevated. Recheck in 2 days. Start statin if LFTs improved. May start in outpatient. Heart healthy diet. Intertrigo - On bilateral groin areas - Keep area clean and dry, nystatin powder BID. Hypokalemia - Scheduled potassium replacement 20meq KCL daily, has refused past 2 days - K today 3.4, did take KCL today - Recheck BMP on 06/16 - Antipsychotic drugs such as risperidone and quetiapine may cause hypokalemia. DVT prop Xarelto Spoke with nurse who had talked to keila Hurd via phone, she had questions regarding anticoagulations. Call placed to daughter at 5:15pm to phone ([phone]) however there was no answer. At 5:52pm spoke with keila Hurd and gave her an update on labs, as well as anticoagulation. Patient has apixaban as an allergy, started on Xarelto for anticoagulation, daughter agreeable with this. Recommended touching base with psych for update. Called and spoke to Sheree LANGSTON and discussed with her. William Pablo Jun 14, 2017 09:42
--- NOTE | 2017-06-14 12:43 | HHI.PYPN ---
Subjective Remarks Patient seen for follow up; chart reviewed. Discussion with nursing staff reported that the patient refused medications last night but took this A.M. Noted to continue to talk to self and noted to be sexually inappropriate as well with other patient. Patient was found sitting in day room, calm and cooperative. She is noted to maintain more organized thought process during interview today, able to answer appropriately but at times would be tangential and respond to internal stimuli but less frequent today. She states that she is aware of her memory difficulty recently and believes it is getting better. She reported having had AH of her daughter's voice recently but denied today although appearing internally preoccupied. Review of Systems Except as stated in HPI: all other systems reviewed are Neg Mental Status Examination Appearance: Appropriate Consciousness: Alert (sleepy but arouses easily) Orientation: Person Motor Activity: Normal gait Speech: Other (low-volume) Language: Adequate Fund of Knowledge: Poor Attention and Concentration: Inadequate (improved) Memory: Impaired Mood: Appropriate Affect: Flat Thought Process & Associations: Loose associations, Tangential (at times) Thought Content: Bizarre thinking (less so today), Hallucinations (denies today ), Delusional Hallucination Type: Auditory (denies), Other (appears internally stimulated) Delusion Type: Paranoid Suicidal Ideation: No Suicidal Plan: No Suicidal Intention: No Homicidal Ideation: No Homicidal Plan: No Homicidal Intention: No Insight: Poor Judgment: Poor Results Labs labs reviewed Date/Time Source Procedure Growth Status 06/03/17 21:00 Urine Clean Catch Urine Culture - Final Klebsiella Pneumoniae Complete Vitals/IOs Vital Signs Date Time Temp Pulse Resp B/P (MAP) Pulse Ox O2 Delivery O2 Flow Rate FiO2 06/14/17 05:31 97.8 111 14 149/90 (109) 98 Intake and Output 06/14/17 06/14/17 06/15/17 08:00 16:00 00:00 Intake Total 480 ml Balance 480 ml Assessment & Plan Problem List: (1) Brief psychotic disorder ICD Codes: F23 - Brief psychotic disorder Assessment & Plan Patient continues to be internally preoccupied but improving and more organized thought process but still noted to be tangential. Patient with recent report of inappropriate behavior and inconsistent with treatment at times. Will increase quetiapine to 50/50/275 for psychosis. Continue monitoring of mood and behavior. Continue to encourage participation in groups and activities. Discharge planning in progress. Justification for Cont. Inpt. At risk for decompensation at lower level of care. Discharge Planning To be determined Chucky Resendiz MD Jun 14, 2017 12:43
[2017-06-14 13:43] LABS: ALBUMIN 3.3 GM/DL (3.4-5.0); ALT (GPT) 62 U/L (10-53); AST (GOT) 28 U/L (15-37); BICARBONATE 24.8 MEQ/L (21.0-32.0); BLOOD UREA NITROGEN 22 MG/DL (7-18); CALCIUM 8.8 MG/DL (8.5-10.1); CHLORIDE 103 MEQ/L (98-107); CREATININE 0.82 MG/DL (0.50-1.00); GLOMERULAR FILTRATION RATE 70 ML/MIN (>89); GLUCOSE,RANDOM 195 MG/DL (74-106); SODIUM (NA) 137 MEQ/L (136-145)
[2017-06-14 13:48] LABS: ALKALINE PHOSPHATASE 109 U/L (45-117); TOTAL PROTEIN 7.7 GM/DL (6.4-8.2)
--- NOTE | 2017-06-14 16:43 | PD.TTN ---
Patient Problems 1. Discharge planning 2. Medication compliance 3. Knowledge deficit 4. Lack of coping skills Progress Toward Goals Provider Present: Dr. Torsten Resendiz Provider Input: 06/14/2017; patient continues to require medication management and stablizing 06/03/2017; patient is obtaining a complete nureral work up, and medications are being adjusted Nurse(s) Present: RN Nurse(s) Input: 06/14/17; patient requires ongoing supervision, and redirection; difficulty with meals and medication 06/03/2017 patient requires redirection, coaching and prompting with most of her basic and personal needs including medications Psychiatric Counselors Present: WICHO Esparza Psych Therapist Input: 06/14/2017; patient will require outpatient services, continues to require redirection and coaching 06/03/2017; counselor will continue working on establishing a workable treatment plan with patient once she has stablize to determine dc needs Group Spec/RT/OT/JAIMES Present: Liborio Orozco OT Group Spec/RT/OT/JAIMES Input: 06/14/2017; patient lacks skill or ability to attend groups. 06/03/2017 Patient is unable to attend or participate with activities at this time, will reassess at a later date once stable Additional Input If and when patient has return to previous level of functioning she will be dc home if not she will require [facility] or NH placement Documentation Scribe: WICHO Esparza Sandra LMHC Jun 14, 2017 16:43
[2017-06-14 17:00] VITALS: BP 132/73; PULSE 110; RESP 16; TEMP 98.3; O2SAT 98
[2017-06-14] MEDS: QUEtiapine FUMARATE 200 MG TAB PO SCH (21:00)
[2017-06-14] MEDS: METOPROLOL TARTRATE 25 MG TAB PO SCH (21:00)
[2017-06-14] MEDS: NYSTATIN 100,000 U/GM PWD 15 GM BTL TOPICAL SCH (21:00)
[2017-06-15 06:00] VITALS: BP 120/58; PULSE 98; RESP 16; TEMP 98.3; O2SAT 97
[2017-06-15] MEDS: RIVAROXABAN 20 MG TAB PO SCH (08:16)
[2017-06-15] MEDS: DILTIAZEM-CD 240 MG CAP ER PO SCH (08:16)
[2017-06-15] MEDS: METOPROLOL TARTRATE 25 MG TAB PO SCH ×2 (08:17→21:00)
[2017-06-15] MEDS: NYSTATIN 100,000 U/GM PWD 15 GM BTL TOPICAL SCH ×2 (08:17→21:00)
[2017-06-15] MEDS: POTASSIUM CHLORIDE 20 MEQ CONTROLLED RELEASE TAB PO SCH (08:17)
[2017-06-15] MEDS: CALCIUM CARBONATE 1.25 GM (CA 500 MG) TAB PO SCH ×2 (08:17→20:44)
[2017-06-15] MEDS: QUEtiapine FUMARATE 25 MG TAB PO SCH ×3 (08:17→20:44)
--- NOTE | 2017-06-15 13:47 | HHI.PYPN ---
Subjective Remarks Patient seen for follow up; chart reviewed. Discussion with nursing staff reported that the patient noted to be more organized; slept well, compliant with treatment. Patient was found sitting in day room, cooperative interview today. Patient noted to be much more organized today answering appropriately noted to be responding to internal stimuli today noted to be paranoid. Patient states that she is feeling "great" although reporting feeling somewhat tired. Patient states that she had been participating in groups and activities, had gone to [employer], and to outside activity outside. Patient states that she is eating better, was happy to have been visited by her sister Nikia from [place] in a couple of friends from there about upset that they were not able to visit with her physically but did see them through the window. Patient states that she is no longer having auditory hallucinations stated that "not anymore". Patient reports that she would like to have family around her post discharge to continue recovery. Patient states that she is agreeable to rehabilitation from discharged from the hospital to be old to make sure she is able to continue to do better physically. Patient also is considering perhaps having family stay with her or her stay with them. Review of Systems Except as stated in HPI: all other systems reviewed are Neg Mental Status Examination Appearance: Appropriate Consciousness: Alert (sleepy but arouses easily) Orientation: Person Motor Activity: Normal gait Speech: Other (low-volume) Language: Adequate Fund of Knowledge: Poor Attention and Concentration: Inadequate (improved) Memory: Impaired Mood: Appropriate Affect: Flat Thought Process & Associations: Loose associations, Linear Thought Content: Bizarre thinking (less so today), Hallucinations (denies today ) Hallucination Type: None, Other (appears internally stimulated) Delusion Type: Paranoid Suicidal Ideation: No Suicidal Plan: No Suicidal Intention: No Homicidal Ideation: No Homicidal Plan: No Homicidal Intention: No Insight: Poor Judgment: Poor Results Labs labs reviewed Date/Time Source Procedure Growth Status 06/03/17 21:00 Urine Clean Catch Urine Culture - Final Klebsiella Pneumoniae Complete Vitals/IOs Vital Signs Date Time Temp Pulse Resp B/P (MAP) Pulse Ox O2 Delivery O2 Flow Rate FiO2 06/15/17 06:00 98.3 98 16 120/58 (78) 97 Intake and Output 06/15/17 06/15/17 06/15/17 07:59 15:59 23:59 Intake Total 240 ml 120 ml Balance 240 ml 120 ml Assessment & Plan Problem List: (1) Brief psychotic disorder ICD Codes: F23 - Brief psychotic disorder Assessment & Plan Patient this time noted to have more organized thought process able to participate effectively in interview today denies any auditory hallucinations or paranoid delusions. Patient noted to have less hypervigilance and was able to maintain good concentration and attention and today. Patient appears to be improving cognitively as well as with less psychotic symptoms. Patient is participating in groups and activities and comply with treatment. Continue current treatment for now. Patient may require rehabilitation program postdischarge to transition back to her residence. We'll coordinate with family for discharge plan. Discharge planning in progress Justification for Cont. Inpt. At risk for further decompensation if at lower level of care Discharge Planning To be determined Chucky Resendiz MD Jun 15, 2017 13:47
--- NOTE | 2017-06-15 13:52 | HHI.PR ---
Subjective Remarks in no acute distress. denies pain. complaining of mild pedal edema. d/w the RN and no acute issues over night. Objective Vitals Vital Signs Date Time Temp Pulse Resp B/P (MAP) Pulse Ox O2 Delivery O2 Flow Rate FiO2 06/15/17 06:00 98.3 98 16 120/58 (78) 97 06/14/17 17:00 98.3 110 16 132/73 (92) 98 I/O 06/14/17 06/14/17 06/14/17 06/15/17 06/15/17 06/15/17 06:59 14:59 22:59 06:59 14:59 22:59 Intake Total 960 ml 460 ml 0 ml 360 ml Balance 960 ml 460 ml 0 ml 360 ml Intake Oral 960 ml 460 ml 0 ml 360 ml # Voids 3 1 1 Result Diagram: 06/14/17 1231 Imaging Last Impressions Brain MRI 06/06/17 1625 Signed Impressions: Service Date/Time: Tuesday, June 06, 2017 17:41 - CONCLUSION: Chronic atrophic and small vessel ischemic changes without any evidence for acute hemorrhage or mass effect. Tate Lee MD Objective Remarks GENERAL: This is a well-nourished, well-developed patient, in no apparent distress. CARDIOVASCULAR: Regular rate and regular rhythm without murmurs, gallops, or rubs. RESPIRATORY: Clear to auscultation. Breath sounds equal bilaterally. No wheezes , rales, or rhonchi. GASTROINTESTINAL: Abdomen soft, non-tender, nondistended. Normal, active bowel sounds MUSCULOSKELETAL: Extremities without clubbing, cyanosis, or edema. NEURO: Alert & Oriented x4 to person, place, time, situation. Moves all ext x4 Procedures NONE Medications and IVs Inpatient Medications Acetaminophen (Tylenol) 650 mg Q4H PRN PO Pain 1-5 or Temp >101F; Start at 22:15 Al Hydrox/Mg Hydrox/Simethicone (Mag-Al Plus Susp Liq) 30 ml Q6H PRN PO DYSPEPSIA; Start 06/01/17 at 22:15 Apixaban (Eliquis) 5 mg BID PO Last administered on 06/10/17at 21:00; Start at 09:45; Stop 06/13/17 at 13:26; Status DC Aspirin (Aspirin) 81 mg DAILY PO ; Start 06/08/17 at 09:00; Stop 06/08/17 at 09:00 ; Status DC Calcium Carbonate (Oscal) 500 mg BID PO Last administered on 06/15/17 08:17; Start 06/02/17 at 09:00 Ciprofloxacin (Cipro) 500 mg Q12H PO Last administered on 06/08/17at 12:47; Start 06/04/17 at 13:00; Stop 06/08/17 at 12:56; Status DC Diltiazem HCl (Cardizem Cd) 240 mg DAILY PO Last administered on 06/15/17 08:16 ; Start 06/02/17 at 09:00 Diphenhydramine HCl (Benadryl Inj) 50 mg HS PRN IM INSOMNIA; Start 06/01/17 at 22:15 Diphenhydramine HCl (Benadryl) 50 mg HS PRN PO INSOMNIA; Start 06/01/17 at 22: 15 Enalaprilat (Vasotec Inj) 1.25 mg Q6H PRN IV PUSH HYPERTENSION; Start at 22:30; Stop 06/14/17 at 10:45; Status DC Enoxaparin Sodium (Lovenox Inj) 100 mg Q12H SQ Last administered on 06/09/17 21 :11; Start 06/01/17 at 23:00; Stop 06/10/17 at 09:40; Status DC Haloperidol Lactate (Haldol Inj) 5 mg STAT ONCE IM Last administered on 06:36; Start 06/12/17 at 07:30; Stop 06/12/17 at 07:31; Status DC Hydroxyzine HCl (Atarax) 50 mg Q6H PRN PO ANXIETY Last administered on 21:30; Start 06/01/17 at 22:15 Lorazepam (Ativan Inj) 1 mg STAT ONCE IM Last administered on 06/12/17 06:36; Start 06/12/17 at 07:30; Stop 06/12/17 at 07:31; Status DC Lorazepam (Ativan) 0.5 mg Q12H PRN PO MODERATE TO SEVERE ANXIETY Last administered on 06/10/17at 20:58; Start 06/01/17 at 22:15 Magnesium Hydroxide (Milk Of Magnesia Liq) 30 ml DAILY PRN PO CONSTIPATION; Start 06/01/17 at 22:15 Metoprolol Tartrate (Lopressor) 12.5 mg Q12HR PO Last administered on 06/15/17at 08:17; Start 06/14/17 at 21:00 Nystatin (Mycostatin Powder) 1 applic Q12HR TOPICAL Last administered on at 08:17; Start 06/14/17 at 21:00 Olanzapine (ZyPREXA INJ) 10 mg STAT IM ; Start 06/12/17 at 03:45; Stop 06/12/17 at 04:30; Status DC Patient Medication Teaching (Coumadin Booklet) 1 ONCE ONCE OTHER ; Start at 16:00; Stop 06/08/17 at 16:01; Status DC Potassium Bicarbonate (Effer-K Eff) 50 meq ONCE ONCE PO ; Start 06/03/17 at 09 :30; Stop 06/03/17 at 13:00; Status DC Potassium Bicarb/ Potassium Chloride (K-Lyte Cl Eff) 50 meq ONCE ONCE PO Last administered on 06/05/17t 12:15; Start 06/05/17 at 12:15; Stop 06/05/17 at 12:16; Status DC Potassium Chloride (KCl) 40 meq ONCE ONCE PO Last administered on 06/07/17at 20: 30; Start 06/07/17 at 20:30; Stop 06/07/17 at 20:31; Status DC Quetiapine Fumarate (SEROquel) 75 mg HS PO Last administered on 06/14/17at 21:00 ; Start 06/14/17 at 21:00 Rivaroxaban (Xarelto) 20 mg DAILY PO Last administered on 06/15/17at 08:16; Start 06/14/17 at 09:00 Trimethoprim/ Sulfamethoxazole (Bactrim Ds 800-160 Mg) 1 tab Q12HR PO Last administered on 06/11/17at 08:52; Start 06/08/17 at 21:00; Stop 06/11/17 at 21:00; Status DC A/P Problem List: (1) HTN (hypertension) ICD Code: I10 - Essential (primary) hypertension (2) CVA (cerebral vascular accident) ICD Code: I63.9 - Cerebral infarction, unspecified (3) Chronic a-fib ICD Code: I48.2 - Chronic atrial fibrillation (4) Urinary tract infection due to Klebsiella species ICD Code: N39.0 - Urinary tract infection, site not specified; B96.1 - Klebsiella pneumoniae [K. pneumoniae] as the cause of diseases classified elsewhere Status: Acute Assessment and Plan Hallucinations, mood disorder - Managed by psychiatry team. Continue on Seroquel, Benadryl Encephalopathy, acute CT at [facility] (05/25/17) - No evidence of intracranial abnormalities. Mild volume loss age appropriate. Mild chronic small vessel ischemic changes. Chronic lacunar infarct. Chronic left cerebellar infarcts. MRI and MRA was done there.Records are not in chart. Per hospitalist note from [facility], no acute findings on those studies. - MRA neck W/O contrast (05/25/17) reviewed today: No hemodynamically significant stenosis of major arteries of the neck. - MRA head W/O contrast ( 05/25/17) reviewed today: Normal MRA of head - MRI brain W/O contrast (05/25/17) reviewed today: No acute infarction or other acute intracranial pathology - Change in mental status with increasing hallucinations and psychosis also been transiently lost of motion and being slump over the corner. Daughter states it was from Eliquis, highly unlikely that eliquis may have caused increase psychosis or AMS. There is a possibility that patient may have mini strokes due to not taking Eliquis for several days prior to being hospitalized at [facility]. - Neurology consulted for further evaluation and recommendations. - EEG Mild background slowing consistent with encephalopathic process. No evidence of any epileptiform features. - MRI 06/06/17 showed Chronic atrophic and small vessel ischemic changes. No evidence of acute infarct/hemorrhage/mass effects - Neurochecks every 4 hours - Speech Therapy eval and treat - Positive RPR, Positive RF, ESR elevated. Treponema Pallidum negative. - Continue reorientation. Improving mental status. Urinary tract infection - UA positive, cultures came back Klebsiella. Sensitive to Cipro - Cipro completed 06/08/17 A. fib, chronic HTN DVT - Previous EKG reviewed, ST 111 HR - Previously on Eliquis, [id number] risk score 5 (female, >65, HTN, Hx DVT) - Continue with diltiazem 240 mg daily - HR 111 this AM with BP 149/90, will add Metoprolol 12.5mg for BP control, continue monitoring trend - ECHO results showed The left ventricular systolic function is normal with an estimated ejection fraction in the range of 55-60%. Normal left ventricular size. Wall thickness is normal. - Previously was on Full dose Lovenox 100 g every 12 hours, switched back to Eliquis 5 mg twice a day however psychiatry deemed that patient decompensates with use of Eliquis even though the daughter has agreed to start anticoagulation. - Switched to Xarelto 20 mg daily. Monitor for any psychiatric changes. - LDL 103, HDL 29. LFTS slightly elevated. Recheck in 2 days. Start statin if LFTs improved. May start in outpatient. Heart healthy diet. Intertrigo - On bilateral groin areas - Keep area clean and dry, nystatin powder BID. Hypokalemia -replaced - Recheck BMP on 06/16 - Antipsychotic drugs such as risperidone and quetiapine may cause hypokalemia. DVT prop Carlos A Montoya MD Jun 15, 2017 13:52
[2017-06-15] MEDS: QUEtiapine FUMARATE 200 MG TAB PO SCH (20:44)
[2017-06-16 06:09] VITALS: BP 128/59; PULSE 76; RESP 18; TEMP 97.7; O2SAT 98
[2017-06-16] MEDS: POTASSIUM CHLORIDE 20 MEQ CONTROLLED RELEASE TAB PO SCH (08:44)
[2017-06-16] MEDS: DILTIAZEM-CD 240 MG CAP ER PO SCH (08:44)
[2017-06-16] MEDS: METOPROLOL TARTRATE 25 MG TAB PO SCH ×2 (08:44→21:27)
[2017-06-16] MEDS: RIVAROXABAN 20 MG TAB PO SCH (08:44)
[2017-06-16] MEDS: CALCIUM CARBONATE 1.25 GM (CA 500 MG) TAB PO SCH ×2 (08:44→21:26)
[2017-06-16] MEDS: QUEtiapine FUMARATE 25 MG TAB PO SCH ×2 (08:44→15:47)
[2017-06-16] MEDS: NYSTATIN 100,000 U/GM PWD 15 GM BTL TOPICAL SCH ×2 (08:45→21:00)
[2017-06-16] MEDS: diphenhydrAMINE HCL 50 MG/ML VIAL IM PRN (11:34)
--- NOTE | 2017-06-16 11:55 | HHI.PYPN ---
Subjective Remarks Patient seen for follow up; chart reviewed. Discussion with nursing staff reported that the patient has been confused, sexually inappropriate, paranoid, refused medications this morning, had pushed up against a tech this morning and did not allow another patient to get into their room. Patient was found in the hallway attempting to get into another patient's room and was not redirectible. She refused to engage in interview, holding onto the handle of another patient 's room door and making nonsensical statements. Patient noted to be disorganized. Review of Systems Except as stated in HPI: all other systems reviewed are Neg Mental Status Examination Appearance: Appropriate Consciousness: Alert (sleepy but arouses easily) Orientation: Person Motor Activity: Normal gait Speech: Other (low-volume) Language: Adequate Fund of Knowledge: Poor Attention and Concentration: Inadequate (improved) Memory: Impaired Mood: Oppositional, Irritable Affect: Irritable Thought Process & Associations: Disorganized Thought Content: Bizarre thinking (less so today), Delusional Hallucination Type: None, Other (appears internally stimulated) Delusion Type: Paranoid Suicidal Ideation: No Suicidal Plan: No Suicidal Intention: No Homicidal Ideation: No Homicidal Plan: No Homicidal Intention: No Insight: Poor Judgment: Poor Results Labs labs reviewed Date/Time Source Procedure Growth Status 06/03/17 21:00 Urine Clean Catch Urine Culture - Final Klebsiella Pneumoniae Complete Vitals/IOs Vital Signs Date Time Temp Pulse Resp B/P (MAP) Pulse Ox O2 Delivery O2 Flow Rate FiO2 06/16/17 06:09 97.7 76 18 128/59 (82) 98 Assessment & Plan Problem List: (1) Brief psychotic disorder ICD Codes: F23 - Brief psychotic disorder Assessment & Plan Patient has been noted to be disorganized, disruptive on the unit, sexually inappropriate, unable to redirect. Patient was non cooperative and refusing to remove herself from another patient's door, disorganized, talking to self. Will administer Haldol 5mg IM and Ativan 1mg IM x 1. Will increase quetiapine to 50/50/300mg. Continue rest of medications. Discharge planning in progress. Justification for Cont. Inpt. At risk for decompensation at lower level of care. Discharge Planning To be determined Chucky Resendiz MD Jun 16, 2017 11:55
[2017-06-16] MEDS ORDERED: HALOPERIDOL LACTATE 5 MG/ML AMP IM ONE (12:00)
[2017-06-16] MEDS ORDERED: LORazepam 2 MG/ML VIAL IM ONE (12:00)
[2017-06-16 12:40] LABS: BICARBONATE 25.7 MEQ/L (21.0-32.0); CALCIUM 9.4 MG/DL (8.5-10.1); CREATININE 0.68 MG/DL (0.50-1.00)
--- NOTE | 2017-06-16 17:10 | HHI.PR ---
Subjective Remarks Follow up for encephalopathy, afib, HTN, DVT. The patient is seen in the day room eating dinner. She has no specific medical complaints. She wants to talk to her daughters. Vital signs reviewed. HR intermittently elevated however patient has been refusing medications. Objective Vitals Vital Signs Date Time Temp Pulse Resp B/P (MAP) Pulse Ox O2 Delivery O2 Flow Rate FiO2 06/16/17 06:09 97.7 76 18 128/59 (82) 98 I/O 06/15/17 06/15/17 06/15/17 06/16/17 06/16/17 06/16/17 07:00 15:00 23:00 07:00 15:00 23:00 Intake Total 0 ml 840 ml 120 ml Balance 0 ml 840 ml 120 ml Intake Oral 0 ml 840 ml 120 ml # Voids 1 4 0 # Bowel Movements 0 Result Diagram: 06/16/17 1009 Imaging Last Impressions Brain MRI 06/06/17 1625 Signed Impressions: Service Date/Time: Tuesday, June 06, 2017 17:41 - CONCLUSION: Chronic atrophic and small vessel ischemic changes without any evidence for acute hemorrhage or mass effect. Tate Lee MD Objective Remarks GENERAL: Well-nourished, well-developed female patient in [facility]. SKIN: Warm and dry. No rash. HEENT: Normocephalic. Atraumatic.Pupils equal and round. Mucous membranes pink and moist. NECK: Supple. Trachea midline. CARDIOVASCULAR: Regular rate and rhythm. S1, S2 noted. No murmur appreciated. RESPIRATORY: No accessory muscle use. Clear to auscultation. Breath sounds equal bilaterally. GASTROINTESTINAL: Abdomen soft, non-tender, nondistended. Normoactive bowel sounds x4. MUSCULOSKELETAL: No obvious deformities. Extremities without clubbing, cyanosis , or edema. NEUROLOGICAL: Awake and alert. No obvious cranial nerve deficits. Motor grossly within normal limits. Normal speech. Procedures NONE Medications and IVs Current Medications Medications (Trade) Dose Ordered Sig/Tru Route Start Time Stop Time Status Last Admin (Ativan) 0.5 mg Q12H PRN PO 06/01/17 22:15 06/10/17 20:58 (Ativan Inj) 0.5 mg Q12H PRN IM 06/01/17 22:15 06/14/17 05:03 (Atarax) 50 mg Q6H PRN PO 06/01/17 22:15 06/12/17 21:30 (Benadryl) 50 mg Q6H PRN PO 06/01/17 22:15 06/08/17 23:35 (Benadryl Inj) 50 mg Q6H PRN IM 06/01/17 22:15 06/16/17 11:34 (Benadryl) 50 mg HS PRN PO 06/01/17 22:15 (Benadryl Inj) 50 mg HS PRN IM 06/01/17 22:15 (Tylenol) 650 mg Q4H PRN PO 06/01/17 22:15 (Milk Of Magnesia Liq) 30 ml DAILY PRN PO 06/01/17 22:15 (Mag-Al Plus Susp Liq) 30 ml Q6H PRN PO 06/01/17 22:15 (Oscal) 500 mg BID PO 06/02/17 09:00 06/15/17 20:44 (Cardizem Cd) 240 mg DAILY PO 06/02/17 09:00 06/15/17 08:16 (KCl) 20 meq DAILY PO 06/06/17 11:45 06/15/17 08:17 (SEROquel) 50 mg DAILY@1600 PO 06/10/17 16:00 06/16/17 15:47 (Xarelto) 20 mg DAILY PO 06/14/17 09:00 06/15/17 08:16 (Mycostatin Powder) 1 applic Q12HR TOPICAL 06/14/17 21:00 06/15/17 08:17 (Lopressor) 12.5 mg Q12HR PO 06/14/17 21:00 06/15/17 21:00 (SEROquel) 50 mg DAILY PO 06/15/17 09:00 06/15/17 08:17 (SEROquel) 300 mg HS PO 06/16/17 21:00 A/P Problem List: (1) HTN (hypertension) ICD Code: I10 - Essential (primary) hypertension (2) CVA (cerebral vascular accident) ICD Code: I63.9 - Cerebral infarction, unspecified (3) Chronic a-fib ICD Code: I48.2 - Chronic atrial fibrillation (4) Urinary tract infection due to Klebsiella species ICD Code: N39.0 - Urinary tract infection, site not specified; B96.1 - Klebsiella pneumoniae [K. pneumoniae] as the cause of diseases classified elsewhere Status: Acute Assessment and Plan Hallucinations, mood disorder - Managed by psychiatry team. Continue on Seroquel, Benadryl Encephalopathy, acute: CT at [facility] (05/25/17) showed no evidence of intracranial abnormalities; Mild volume loss age appropriate; Mild chronic small vessel ischemic changes; Chronic lacunar infarct; Chronic left cerebellar infarcts. MRI, MRA head/neck done on 05/25/17 at with no acute findings. - 06/02 patient had change in mental status with increasing hallucinations and psychosis also been transiently lost of motion and being slump over the corner. Daughter states it was from Eliquis, highly unlikely that eliquis may have caused increase psychosis or AMS. There is a possibility that patient may have mini strokes due to not taking Eliquis for several days prior to being hospitalized at [facility]. - Neurology consulted, appreciate recommendations. - EEG Mild background slowing consistent with encephalopathic process. No evidence of any epileptiform features. - MRI 06/06/17 showed Chronic atrophic and small vessel ischemic changes. No evidence of acute infarct/hemorrhage/mass effects - Continue Neurochecks every 4 hours - Speech Therapy eval and treat, tolerated regular diet and thin liquids - Positive RPR, Positive RF, ESR elevated. Treponema Pallidum negative. - Continue reorientation. Improving mental status. Urinary tract infection - UA positive, cultures with Klebsiella. Sensitive to Cipro - Cipro completed 06/08/17 A. fib, HTN, DVT - Previous EKG reviewed, ST 111 HR - Previously on Eliquis, [id number] risk score 5 (female, >65, HTN, Hx DVT) - Continue with diltiazem 240 mg daily for rate control, added Metoprolol 12.5mg for BP control, continue monitoring trend - Echo showed normal left ventricular function with EF 55-60%. - Previously was on Full dose Lovenox 100 g bid, switched back to Eliquis 5 mg bid however psychiatry deemed that patient decompensates with use of Eliquis even though the daughter has agreed to start anticoagulation. - Switched to Xarelto 20 mg daily. Monitor for any psychiatric changes. - LDL 103, HDL 29. LFTS slightly elevated. Recheck in 2 days. Start statin if LFTs improved. May start in outpatient. Heart healthy diet. - /10 - HR noted to be elevated in the low 100s, likely secondary to patient refusing medications, continue to monitor Ivone Intertrigo - On bilateral groin areas - Keep area clean and dry, nystatin powder BID. DVT prop Kimi Augustin PA-C Jun 16, 2017 17:10
[2017-06-16 18:00] VITALS: BP 127/64; PULSE 88; RESP 18; TEMP 98.3; O2SAT 98
[2017-06-16] MEDS ORDERED: QUEtiapine FUMARATE 300 MG TAB PO SCH (21:00)
[2017-06-17 05:52] VITALS: BP 123/58; PULSE 100; RESP 18; TEMP 98.3; O2SAT 96
[2017-06-17] MEDS: DILTIAZEM-CD 240 MG CAP ER PO SCH (08:50)
[2017-06-17] MEDS: POTASSIUM CHLORIDE 20 MEQ CONTROLLED RELEASE TAB PO SCH (08:50)
[2017-06-17] MEDS: RIVAROXABAN 20 MG TAB PO SCH (08:51)
[2017-06-17] MEDS: CALCIUM CARBONATE 1.25 GM (CA 500 MG) TAB PO SCH ×2 (08:51→21:09)
[2017-06-17] MEDS: QUEtiapine FUMARATE 25 MG TAB PO SCH ×3 (08:51→21:08)
[2017-06-17] MEDS: METOPROLOL TARTRATE 25 MG TAB PO SCH ×2 (08:51→21:00)
[2017-06-17] MEDS: NYSTATIN 100,000 U/GM PWD 15 GM BTL TOPICAL SCH ×2 (08:51→21:00)
[2017-06-17 16:52] VITALS: BP 104/53; PULSE 99; RESP 18; TEMP 97.2; O2SAT 95
--- NOTE | 2017-06-17 18:18 | HHI.PYPN ---
Subjective Remarks Patient seen for follow-up, chart reviewed. Discussion with nursing staff reported that the patient was noted to be confused, less intrusive and inappropriate today, med compliant. Patient was found sitting in day room, calm and cooperative with interview. Patient states that she is feeling "ok", reports having slept well, continued to endorse AH yesterday stating that she had heard the voice of her daughter which was why she was attempting to get into another patient's room yesterday. She states that her daughter was in the room and the man in that room was trying to hurt her daughter. She denies any AH today. She also is noted to be paranoid of staff. Review of Systems Except as stated in HPI: all other systems reviewed are Neg Mental Status Examination Appearance: Appropriate Consciousness: Alert (sleepy but arouses easily) Orientation: Person Motor Activity: Normal gait Speech: Other (low-volume) Language: Adequate Fund of Knowledge: Poor Attention and Concentration: Inadequate (improved) Memory: Impaired Mood: Other (guarded) Affect: Blunt, Other (guarded) Thought Process & Associations: Disorganized (less so today) Thought Content: Bizarre thinking (less so today), Delusional Hallucination Type: None, Other (appears internally stimulated) Delusion Type: Paranoid Suicidal Ideation: No Suicidal Plan: No Suicidal Intention: No Homicidal Ideation: No Homicidal Plan: No Homicidal Intention: No Insight: Poor Judgment: Poor Results Labs Date/Time Source Procedure Growth Status 06/03/17 21:00 Urine Clean Catch Urine Culture - Final Klebsiella Pneumoniae Complete Vitals/IOs Vital Signs Date Time Temp Pulse Resp B/P (MAP) Pulse Ox O2 Delivery O2 Flow Rate FiO2 06/17/17 16:52 97.2 99 18 104/53 (70) 95 Intake and Output 06/17/17 06/17/17 06/18/17 08:00 16:00 00:00 Intake Total 240 ml 840 ml 960 ml Balance 240 ml 840 ml 960 ml Assessment & Plan Problem List: (1) Brief psychotic disorder ICD Codes: F23 - Brief psychotic disorder Assessment & Plan Patient noted to be less disorganized, no endorsing AH today but noted to be paranoid. Will increase quetiapine to 50/50/350mg, continue rest of medications. Continue recommendations as per primary medical team, discharge planning in progress. Justification for Cont. Inpt. At risk for further decompensation if at lower level of care. Discharge Planning Back to her residence once psychiatrically stable. Chucky Resendiz MD Jun 17, 2017 18:18
[2017-06-17] MEDS: QUEtiapine FUMARATE 300 MG TAB PO SCH (21:08)
[2017-06-17] MEDS: diphenhydrAMINE HCL 50 MG CAP PO PRN (21:09)
[2017-06-18 06:25] VITALS: BP 122/58; PULSE 84; RESP 16; TEMP 97.9; O2SAT 95
[2017-06-18] MEDS: CALCIUM CARBONATE 1.25 GM (CA 500 MG) TAB PO SCH ×2 (08:18→20:49)
[2017-06-18] MEDS: QUEtiapine FUMARATE 25 MG TAB PO SCH ×3 (08:18→20:48)
[2017-06-18] MEDS: POTASSIUM CHLORIDE 20 MEQ CONTROLLED RELEASE TAB PO SCH (08:18)
[2017-06-18] MEDS: DILTIAZEM-CD 240 MG CAP ER PO SCH (08:19)
[2017-06-18] MEDS: METOPROLOL TARTRATE 25 MG TAB PO SCH ×2 (08:25→20:49)
[2017-06-18] MEDS: NYSTATIN 100,000 U/GM PWD 15 GM BTL TOPICAL SCH ×2 (08:25→20:48)
[2017-06-18] MEDS: RIVAROXABAN 20 MG TAB PO SCH (09:00)
--- NOTE | 2017-06-18 17:01 | HHI.PYPN ---
Subjective Remarks Patient seen for follow-up, chart reviewed. Discussion with nursing staff reported that patient appears to be better, med compliant, more spontaneous. Patient found sleeping but able to wake up for interview. She states that she was awoken last night as another patient went into her room and could not go back to sleep and now feeling tired. She was noted to have linear thought process, not noted to be disorganized. She reports good mood, denies any perceptual disturbances or paranoid delusions. Review of Systems Except as stated in HPI: all other systems reviewed are Neg Mental Status Examination Appearance: Appropriate Consciousness: Alert (sleepy but arouses easily) Orientation: Person Motor Activity: Normal gait Speech: Other (low-volume) Language: Adequate Fund of Knowledge: Poor Attention and Concentration: Inadequate (improved) Memory: Impaired Mood: Appropriate Affect: Appropriate Thought Process & Associations: Intact, Linear Thought Content: Appropriate Hallucination Type: None, Other (appears internally stimulated) Delusion Type: None Suicidal Ideation: No Suicidal Plan: No Suicidal Intention: No Homicidal Ideation: No Homicidal Plan: No Homicidal Intention: No Insight: Fair Judgment: Impulsive Results Labs labs reviewed Date/Time Source Procedure Growth Status 06/03/17 21:00 Urine Clean Catch Urine Culture - Final Klebsiella Pneumoniae Complete Vitals/IOs Vital Signs Date Time Temp Pulse Resp B/P (MAP) Pulse Ox O2 Delivery O2 Flow Rate FiO2 06/18/17 06:25 97.9 84 16 122/58 (79) 95 Intake and Output 06/18/17 06/18/17 06/19/17 08:00 16:00 00:00 Intake Total 480 ml Balance 480 ml Assessment & Plan Problem List: (1) Brief psychotic disorder ICD Codes: F23 - Brief psychotic disorder Assessment & Plan Patient appears to be improving, with stable mood, no psychotic or delusional material elicited today. Will continue current treatment. continue to monitor mood and behavior. Discharge planning in progress. Justification for Cont. Inpt. At risk for further decompensation if at lower level of care. Discharge Planning Possibly to return back to her residence or with family. Chucky Resendiz MD Jun 18, 2017 17:01
[2017-06-18] MEDS: QUEtiapine FUMARATE 300 MG TAB PO SCH (20:48)
[2017-06-19 06:48] VITALS: BP 117/56; PULSE 81; RESP 16; TEMP 98.7; O2SAT 94
[2017-06-19] MEDS: RIVAROXABAN 20 MG TAB PO SCH (08:31)
[2017-06-19] MEDS: DILTIAZEM-CD 240 MG CAP ER PO SCH (08:32)
[2017-06-19] MEDS: QUEtiapine FUMARATE 25 MG TAB PO SCH ×3 (08:32→20:51)
[2017-06-19] MEDS: METOPROLOL TARTRATE 25 MG TAB PO SCH ×2 (08:32→20:52)
[2017-06-19] MEDS: CALCIUM CARBONATE 1.25 GM (CA 500 MG) TAB PO SCH ×2 (08:32→20:52)
[2017-06-19] MEDS: POTASSIUM CHLORIDE 20 MEQ CONTROLLED RELEASE TAB PO SCH (08:32)
[2017-06-19] MEDS: NYSTATIN 100,000 U/GM PWD 15 GM BTL TOPICAL SCH ×2 (08:32→20:52)
--- NOTE | 2017-06-19 10:44 | HHI.PYPN ---
Subjective Remarks Pt seen and discussed with staff home therapy rn. She has been compliant with care. Staff report that pt has been less withdrawn and more spontaneous in speech and interactions. Some mild disorganization is present but staff report that this is an improvement. Less internal stimulation. No SI/HI Mental Status Examination Appearance: Appropriate Consciousness: Alert (sleepy but arouses easily) Orientation: Person Motor Activity: Normal gait Speech: Other (low-volume) Language: Adequate Fund of Knowledge: Poor Attention and Concentration: Inadequate (improved) Memory: Impaired Mood: Appropriate Affect: Appropriate Thought Process & Associations: Intact, Disorganized (mild) Thought Content: Appropriate Hallucination Type: Other (appears internally stimulated) Delusion Type: None Suicidal Ideation: No Suicidal Plan: No Suicidal Intention: No Homicidal Ideation: No Homicidal Plan: No Homicidal Intention: No Insight: Fair Judgment: Impulsive Results Labs Date/Time Source Procedure Growth Status 06/03/17 21:00 Urine Clean Catch Urine Culture - Final Klebsiella Pneumoniae Complete Vitals/IOs Vital Signs Date Time Temp Pulse Resp B/P (MAP) Pulse Ox O2 Delivery O2 Flow Rate FiO2 06/19/17 06:48 98.7 81 16 117/56 (76) 94 Intake and Output 06/19/17 06/19/17 06/20/17 08:00 16:00 00:00 Intake Total 120 ml Balance 120 ml Assessment & Plan Problem List: (1) Brief psychotic disorder ICD Codes: F23 - Brief psychotic disorder Assessment & Plan Pt improving. Continue current tx plan. Estimated LOS: days Justification for Cont. Inpt. risk of decompensation Karla Humphrey MD Jun 19, 2017 10:44
--- NOTE | 2017-06-19 15:41 | HHI.PR ---
Subjective Remarks Follow up for encephalopathy, afib, HTN, DVT. The patient is seen in the day room in presence of the RN. The patient reports constipation with no bowel movement in 4 days. She denies any abdominal pain, nausea, or vomiting, but does have lack of appetite secondary to the constipation. Denies fevers/chills. She has tried prune juice, and milk of mag a few hours ago with no relief. She has no other medical complaints at this time. Discussed with RN. Objective Vitals Vital Signs Date Time Temp Pulse Resp B/P (MAP) Pulse Ox O2 Delivery O2 Flow Rate FiO2 06/19/17 06:48 98.7 81 16 117/56 (76) 94 I/O 06/18/17 06/18/17 06/18/17 06/19/17 06/19/17 06/19/17 07:00 15:00 23:00 07:00 15:00 23:00 Intake Total 840 ml 240 ml 360 ml Balance 840 ml 240 ml 360 ml Intake Oral 840 ml 240 ml 360 ml # Voids 5 1 # Bowel Movements 1 Result Diagram: 06/16/17 1009 Imaging Last Impressions Brain MRI 06/06/17 1625 Signed Impressions: Service Date/Time: Tuesday, June 06, 2017 17:41 - CONCLUSION: Chronic atrophic and small vessel ischemic changes without any evidence for acute hemorrhage or mass effect. Tate Lee MD Objective Remarks GENERAL: Well-nourished, well-developed female patient in [facility]. SKIN: Warm and dry. No rash. HEENT: Normocephalic. Atraumatic.Pupils equal and round. Mucous membranes pink and moist. NECK: Supple. Trachea midline. CARDIOVASCULAR: Regular rate and rhythm. S1, S2 noted. No murmur appreciated. RESPIRATORY: No accessory muscle use. Clear to auscultation. Breath sounds equal bilaterally. GASTROINTESTINAL: Abdomen soft, non-tender, nondistended. Normoactive bowel sounds x4. MUSCULOSKELETAL: No obvious deformities. Extremities without clubbing, cyanosis , or edema. NEUROLOGICAL: Awake and alert. No obvious cranial nerve deficits. Motor grossly within normal limits. Normal speech. Procedures NONE Medications and IVs Current Medications Medications (Trade) Dose Ordered Sig/Tru Route Start Time Stop Time Status Last Admin (Ativan) 0.5 mg Q12H PRN PO 06/01/17 22:15 06/10/17 20:58 (Ativan Inj) 0.5 mg Q12H PRN IM 06/01/17 22:15 06/14/17 05:03 (Atarax) 50 mg Q6H PRN PO 06/01/17 22:15 06/12/17 21:30 (Benadryl) 50 mg Q6H PRN PO 06/01/17 22:15 06/17/17 21:09 (Benadryl Inj) 50 mg Q6H PRN IM 06/01/17 22:15 06/16/17 11:34 (Benadryl) 50 mg HS PRN PO 06/01/17 22:15 (Benadryl Inj) 50 mg HS PRN IM 06/01/17 22:15 (Tylenol) 650 mg Q4H PRN PO 06/01/17 22:15 (Milk Of Magnesia Liq) 30 ml DAILY PRN PO 06/01/17 22:15 (Mag-Al Plus Susp Liq) 30 ml Q6H PRN PO 06/01/17 22:15 (Oscal) 500 mg BID PO 06/02/17 09:00 06/19/17 08:32 (Cardizem Cd) 240 mg DAILY PO 06/02/17 09:00 06/19/17 08:32 (KCl) 20 meq DAILY PO 06/06/17 11:45 06/19/17 08:32 (SEROquel) 50 mg DAILY@1600 PO 06/10/17 16:00 06/18/17 16:00 (Xarelto) 20 mg DAILY PO 06/14/17 09:00 06/19/17 08:31 (Mycostatin Powder) 1 applic Q12HR TOPICAL 06/14/17 21:00 06/19/17 08:32 (Lopressor) 12.5 mg Q12HR PO 06/14/17 21:00 06/18/17 20:49 (SEROquel) 50 mg DAILY PO 06/15/17 09:00 06/19/17 08:32 (SEROquel) 300 mg HS PO 06/17/17 21:00 06/18/17 20:48 (SEROquel) 50 mg HS PO 06/17/17 21:00 06/18/17 20:48 A/P Problem List: (1) HTN (hypertension) ICD Code: I10 - Essential (primary) hypertension (2) CVA (cerebral vascular accident) ICD Code: I63.9 - Cerebral infarction, unspecified (3) Chronic a-fib ICD Code: I48.2 - Chronic atrial fibrillation (4) Urinary tract infection due to Klebsiella species ICD Code: N39.0 - Urinary tract infection, site not specified; B96.1 - Klebsiella pneumoniae [K. pneumoniae] as the cause of diseases classified elsewhere Status: Acute Assessment and Plan Hallucinations, mood disorder - Managed by psychiatry team. Continue on Seroquel, Benadryl Encephalopathy, acute: CT at [facility] (05/25/17) showed no evidence of intracranial abnormalities; Mild volume loss age appropriate; Mild chronic small vessel ischemic changes; Chronic lacunar infarct; Chronic left cerebellar infarcts. MRI, MRA head/neck done on 05/25/17 at with no acute findings. - 06/02 patient had change in mental status with increasing hallucinations and psychosis also been transiently lost of motion and being slump over the corner. Daughter states it was from Eliquis, highly unlikely that eliquis may have caused increase psychosis or AMS. There is a possibility that patient may have mini strokes due to not taking Eliquis for several days prior to being hospitalized at [facility]. - Neurology consulted, appreciate recommendations. - EEG Mild background slowing consistent with encephalopathic process. No evidence of any epileptiform features. - MRI 06/06/17 showed Chronic atrophic and small vessel ischemic changes. No evidence of acute infarct/hemorrhage/mass effects - Continue Neurochecks every 4 hours - Speech Therapy eval and treat, tolerated regular diet and thin liquids - Positive RPR, Positive RF, ESR elevated. Treponema Pallidum negative. - Continue reorientation. Improving mental status. Urinary tract infection - UA positive, cultures with Klebsiella. Sensitive to Cipro - Cipro completed 06/08/17 A. fib, HTN, DVT - Previous EKG reviewed, ST 111 HR - Previously on Eliquis, [id number] risk score 5 (female, >65, HTN, Hx DVT) - Continue with diltiazem 240 mg daily for rate control, added Metoprolol 12.5mg for BP control, continue monitoring trend - Echo showed normal left ventricular function with EF 55-60%. - Previously was on Full dose Lovenox 100 g bid, switched back to Eliquis 5 mg bid however psychiatry deemed that patient decompensates with use of Eliquis even though the daughter has agreed to start anticoagulation. - Switched to Xarelto 20 mg daily. Monitor for any psychiatric changes. - LDL 103, HDL 29. LFTS slightly elevated. Recheck in 2 days. Start statin if LFTs improved. May start in outpatient. Heart healthy diet. - heart rate improving, continue to monitor Ivone Intertrigo - On bilateral groin areas - Keep area clean and dry, nystatin powder BID. 06/19-Constipation: no BM x4 days, no relief with prune juice or milk of mag. However, BM documented on 06/18 by RN -continue constipation protocol meds, discussed with RN to give med this evening if still no relief -monitor for BM DVT prophylaxis: Kimi Augustin PA-C Jun 19, 2017 3:41 pm
[2017-06-19 18:00] VITALS: BP 106/64; PULSE 87; RESP 18; TEMP 98.4; O2SAT 99
[2017-06-19] MEDS: QUEtiapine FUMARATE 300 MG TAB PO SCH (20:51)
[2017-06-20 05:00] VITALS: BP 141/67; PULSE 103; RESP 18; TEMP 98.3; O2SAT 98
[2017-06-20 09:45] VITALS: BP 130/67
[2017-06-20] MEDS: DILTIAZEM-CD 240 MG CAP ER PO SCH (09:52)
[2017-06-20] MEDS: POTASSIUM CHLORIDE 20 MEQ CONTROLLED RELEASE TAB PO SCH (09:53)
[2017-06-20] MEDS: RIVAROXABAN 20 MG TAB PO SCH (09:53)
[2017-06-20] MEDS: CALCIUM CARBONATE 1.25 GM (CA 500 MG) TAB PO SCH ×2 (09:53→20:42)
[2017-06-20] MEDS: METOPROLOL TARTRATE 25 MG TAB PO SCH ×2 (09:53→20:42)
[2017-06-20] MEDS: QUEtiapine FUMARATE 25 MG TAB PO SCH ×3 (09:54→20:41)
[2017-06-20] MEDS: NYSTATIN 100,000 U/GM PWD 15 GM BTL TOPICAL SCH ×2 (09:55→20:41)
--- NOTE | 2017-06-20 11:57 | HHI.PR ---
Objective Vitals Vital Signs Date Time Temp Pulse Resp B/P (MAP) Pulse Ox O2 Delivery O2 Flow Rate FiO2 06/20/17 09:45 130/67 (88) 06/20/17 05:00 98.3 103 18 141/67 (91) 98 06/19/17 18:00 98.4 87 18 106/64 (78) 99 I/O 06/19/17 06/19/17 06/19/17 06/20/17 06/20/17 06/20/17 07:00 15:00 23:00 07:00 15:00 23:00 Intake Total 1080 ml 1260 ml 0 ml 480 ml Balance 1080 ml 1260 ml 0 ml 480 ml Intake Oral 1080 ml 1260 ml 0 ml 480 ml # Voids 1 1 2 Result Diagram: 06/16/17 1009 Objective Remarks Procedures NONE A/P Problem List: (1) HTN (hypertension) ICD Code: I10 - Essential (primary) hypertension (2) CVA (cerebral vascular accident) ICD Code: I63.9 - Cerebral infarction, unspecified (3) Chronic a-fib ICD Code: I48.2 - Chronic atrial fibrillation (4) Urinary tract infection due to Klebsiella species ICD Code: N39.0 - Urinary tract infection, site not specified; B96.1 - Klebsiella pneumoniae [K. pneumoniae] as the cause of diseases classified elsewhere Status: Acute Jaimie Krause MD Jun 20, 2017 11:57
[2017-06-20] MEDS ORDERED: BISACODYL 10 MG SUPP RECTAL PRN (13:00)
[2017-06-20] MEDS ORDERED: LACTULOSE SYRUP 20 GM/30 ML CUP PO PRN (13:00)
[2017-06-20] MEDS ORDERED: MAGNESIUM HYDROXIDE SUSP 30 ML CUP PO PRN (13:00)
[2017-06-20] MEDS ORDERED: SENNOSIDES 8.6 MG TAB PO PRN (13:00)
--- NOTE | 2017-06-20 15:39 | HHI.PYPN ---
Subjective Remarks Pt seen and discussed with staff. She is doing much better today and thought process is organized. No delusions/hallucinations. No SI/HI NO medication side effects. She had a good visit with daughter today. Mental Status Examination Appearance: Appropriate Consciousness: Alert (sleepy but arouses easily) Orientation: Person Motor Activity: Normal gait Speech: Other (low-volume) Language: Adequate Fund of Knowledge: Poor Attention and Concentration: Adequate Memory: Impaired Mood: Appropriate Affect: Appropriate Thought Process & Associations: Intact, Linear Thought Content: Appropriate Hallucination Type: Other (appears internally stimulated) Delusion Type: None Suicidal Ideation: No Suicidal Plan: No Suicidal Intention: No Homicidal Ideation: No Homicidal Plan: No Homicidal Intention: No Insight: Fair Judgment: Impulsive Results Labs Date/Time Source Procedure Growth Status 06/03/17 21:00 Urine Clean Catch Urine Culture - Final Klebsiella Pneumoniae Complete Vitals/IOs Vital Signs Date Time Temp Pulse Resp B/P (MAP) Pulse Ox O2 Delivery O2 Flow Rate FiO2 06/20/17 09:45 130/67 (88) 06/20/17 05:00 98.3 103 18 98 Intake and Output 06/20/17 06/20/17 06/21/17 08:00 16:00 00:00 Intake Total 480 ml 240 ml Balance 480 ml 240 ml Assessment & Plan Problem List: (1) Brief psychotic disorder ICD Codes: F23 - Brief psychotic disorder Assessment & Plan Pt is improving. Continue current tx plan. Continue discharge planning. Estimated LOS: days Justification for Cont. Inpt. risk of decompensation Karla Humphrey MD Jun 20, 2017 15:39
[2017-06-20 17:00] VITALS: BP 155/66; PULSE 94; RESP 20; TEMP 98.3; O2SAT 97
[2017-06-20] MEDS: QUEtiapine FUMARATE 300 MG TAB PO SCH (20:41)
[2017-06-20] MEDS: DOCUSATE SODIUM 50 MG/SENNA 8.6 MG TAB PO SCH (20:42)
[2017-06-21] MEDS: POTASSIUM CHLORIDE 20 MEQ CONTROLLED RELEASE TAB PO SCH (08:37)
[2017-06-21] MEDS: RIVAROXABAN 20 MG TAB PO SCH (08:37)
[2017-06-21] MEDS: QUEtiapine FUMARATE 25 MG TAB PO SCH (08:38)
[2017-06-21] MEDS: DILTIAZEM-CD 240 MG CAP ER PO SCH (08:38)
[2017-06-21] MEDS: CALCIUM CARBONATE 1.25 GM (CA 500 MG) TAB PO SCH (08:39)
[2017-06-21] MEDS: METOPROLOL TARTRATE 25 MG TAB PO SCH (08:39)
[2017-06-21] MEDS: DOCUSATE SODIUM 50 MG/SENNA 8.6 MG TAB PO SCH (08:39)
[2017-06-21] MEDS: NYSTATIN 100,000 U/GM PWD 15 GM BTL TOPICAL SCH (08:42)
--- NOTE | 2017-06-21 10:25 | HHI.PYPN ---
Subjective Remarks Patient seen for follow-up, chart reviewed. Discussion she staff reported the patient had showered is morning ability well and doing well and well related during interactions. Patient was found sitting in day room noted a calm and cooperative. She states that she has been feeling "better" and plans to go home with family. Patient states her family visited yesterday which went well and stated her daughter wants her to be taken to [facility] for further evaluations. Her mood being "good" denies any perceptual disturbances or delusions. Review of Systems Except as stated in HPI: all other systems reviewed are Neg Mental Status Examination Appearance: Appropriate Consciousness: Alert (sleepy but arouses easily) Orientation: Person Motor Activity: Normal gait Speech: Unremarkable Language: Adequate Fund of Knowledge: Inadequate Attention and Concentration: Adequate Memory: Impaired Mood: Appropriate Affect: Appropriate Thought Process & Associations: Intact, Linear Thought Content: Appropriate Hallucination Type: Other (appears internally stimulated) Delusion Type: None Suicidal Ideation: No Suicidal Plan: No Suicidal Intention: No Homicidal Ideation: No Homicidal Plan: No Homicidal Intention: No Insight: Fair Judgment: Impulsive Results Labs Date/Time Source Procedure Growth Status 06/03/17 21:00 Urine Clean Catch Urine Culture - Final Klebsiella Pneumoniae Complete Vitals/IOs Vital Signs Date Time Temp Pulse Resp B/P (MAP) Pulse Ox O2 Delivery O2 Flow Rate FiO2 06/20/17 17:00 98.3 94 20 155/66 (95) 97 Assessment & Plan Problem List: (1) Brief psychotic disorder ICD Codes: F23 - Brief psychotic disorder Assessment & Plan She this time noted to be well related, organized thought process, with good mood denying any perceptual disturbances or delusions. Patient appears psychiatrically stable for discharge at this time. We'll coordinate with family and addiction social worker for appropriate discharge as patient appropriate this time for discharge. Discharge planning in progress Justification for Cont. Inpt. At risk for further decompensation at lower level of care Discharge Planning To discharge with family Chucky Resendiz MD Jun 21, 2017 10:25
[2017-06-21] MEDS ORDERED: PERI PO (11:13)
[2017-06-21] MEDS ORDERED: DILT240C44 PO (11:13)
[2017-06-21] MEDS ORDERED: METO25TA3 PO (11:13)
[2017-06-21] MEDS ORDERED: QUET1TAB10 PO (11:13)
[2017-06-21] MEDS ORDERED: Nystatin Powder TOPICAL (11:13)
[2017-06-21] MEDS ORDERED: QUET5TAB PO (11:13)
[2017-06-21] MEDS ORDERED: POTA20TA5 PO (11:13)
[2017-06-21] MEDS ORDERED: CALC500 PO (11:13)
[2017-06-21] MEDS ORDERED: XARE20TA PO (11:13)
--- NOTE | 2017-06-22 21:54 | HHI.DS ---
Psychiatry Discharge Summary Inpatient Psychiatric care?: Yes Advance Directive: No Reason Not Provided: Due to Patient Condition Mental Health AdvanceDirective: No Health Care Proxy: No Admission Admission Date Jun 01, 2017 at 21:40 Admission Diagnosis: (1) Brief psychotic disorder ICD Code: F23 - Brief psychotic disorder Brief History Patient is a 67-year-old woman, unclear if for single, unemployed, unknown of domiciled with family friends or living alone, with an unclear past psychiatric history, with a past medical history significant for hypertension, recent altered mental status which she was admitted to the medical unit at [facility] after patient's daughter found patient confused and had subsequent workup and cleared medically which during admission had reported feeling depressed with thoughts of wanting to end her life and was Santos acted for the same. He should was discharged to the [facility] but return back to the ED as patient refused to walk to the facility from the vehicle. Patient was then transferred to the inpatient medical/psychiatry unit here at [facility] for further evaluation and management. As per medical records from patient's recent hospitalization patient was admitted to [facility] for altered mental status which patient had a cardiology and neurology consulted at that time and cleared by them. Patient also had brain CT done which showed chronic left striatocapsular lacunar infarct and small chronic left cerebellar infarcts. Patient also had MR angio neck, MR brain, MRA angio head which results of those studies were not found in documents. Patient was found lying in hospital bed noted to have psychomotor retardation, speech latency, disorganized on interview , although was able to answer concrete questioning. Patient states that she is currently in [place], alert and oriented only to person at this time. Patient reports that she is living with the person named Giorgio which is her significant other than later stated that he is in intermediate. Patient also wasn't able to mention that she has 2 children, Ayleen and Jose Luis whom she cannot remember their age. Patient was not able to continue to provide any significant or relevant history she is a poor historian, noted to be confused and at times making nonsensical statements. At this time patient is unable to express further regarding to her depression or having suicidal ideations at this time due to her disorganization. The patient is a 67 years old woman, domiciled alone in [facility], single, unemployed, without any previous psychiatric history, medical history of hypertension, who was transferred to [place] from for the hospital due to confusion, psychotic thought processes and behavior, also suicidal ideation. Consulted to me for second opinion. On psychiatric evaluation patient is found in her room, she is in a kind of perplexed state, stating repetitively that she is afraid of her daughter, afraid of this place, afraid of the people, "afraid of talking, afraid you can read my mind". In spite of multiple attempts and redirection a she continues to be perseverative around in the idea of being afraid. Patient is unable to answer appropriately most of my questions. She seems to be very confused, with flat affect, internally stimulated. The patient knows that she is in the hospital, but she is disoriented in time. Tobacco Use In Past 30 Days: Refused To Answer Alcohol Use: Never Hospital Course Patient is a 67-year-old woman, unclear if for single, unemployed, unknown of domiciled with family friends or living alone, with an unclear past psychiatric history, with a past medical history significant for hypertension, recent altered mental status which she was admitted to the medical unit at [facility] after patient's daughter found patient confused and had subsequent workup and cleared medically which during admission had reported feeling depressed with thoughts of wanting to end her life and was Santos acted for the same which she was transferred to the inpatient psychiatry/medical unit for further evaluation and management. Patient restarted on quetiapine and titrated up to 50/50/50/300mg PO daily which patient tolerated well and noted to have had a progressive improvement. She was noted to be irritable at times, mostly confused and disorganized but began to regain organized thought process and maintain stable mood. Patient began to have improvement of mood, noted to maintain hygiene, participated in physical therapy, groups and activities and was more consistent with compliance with treatment. Patient was noted to have less anxiety, was able to reconnect with family and was future oriented. Upon discharge patient stated that she was feeling good, denied any psychotic symptoms, denied any SI, HI or delusions. Patient agreed to continue medication regimen and outpatient follow up for continuity of care. Patient advised to call 911 or go nearest ED in case of emergency. Patient agrees with plan. Results Blood Pressure 155 / 66 Vital Signs Date Time Temp Pulse Resp B/P (MAP) Pulse Ox O2 Delivery O2 Flow Rate FiO2 06/20/17 17:00 98.3 94 20 155/66 (95) 97 Laboratory Results Test 06/02/17 10:30 Cholesterol Level 154 MG/DL (120-200) HDL Cholesterol 29.0 MG/DL (40.0-60.0) Hemoglobin A1c 4.9 % (4.3-6.0) LDL Cholesterol 103 MG/DL (0-99) Triglycerides Level 111 MG/DL (42-150) Summary of Procedures none Imaging Last Impressions Brain MRI 06/06/17 1625 Signed Impressions: Service Date/Time: Tuesday, June 06, 2017 17:41 - CONCLUSION: Chronic atrophic and small vessel ischemic changes without any evidence for acute hemorrhage or mass effect. Tate Lee MD Pending results at discharge: No Medications # of Antipsychotic meds at D/C: 1 Approp Antipsych med options 1 - Minimum of three failed multiple trials of monotherapy. 2 - Documented plan to taper to monotherapy due to previous use of multiple meds OR cross-taper in progress at D/C. 3 - Documentation of augmentation of Clozapine. 4 - Justification other than those listed in allowable values 1-3, document here : Discharge Discharge Date: Jun 21, 2017 Discharge Diagnosis: (1) Brief psychotic disorder ICD Code: F23 - Brief psychotic disorder Pt Condition on Discharge: Stable Discharge Disposition: Discharge Home Discharge Instructions Diet Instructions: Heart Healthy Diet Activities you can perform: Weight Bearing as Deep Scheduled Appointment: Dr Campos Appointment Date: Jun 24, 2017 Appointment Time: 10:00am Discharge Time > 30 minutes Mental Status Examination Appearance: Appropriate Consciousness: Alert (sleepy but arouses easily) Orientation: Person Motor Activity: Normal gait Speech: Unremarkable Language: Adequate Fund of Knowledge: Inadequate (uses walker) Attention and Concentration: Adequate Memory: Impaired Mood: Appropriate Affect: Appropriate Thought Process & Associations: Intact, Goal directed, Linear Thought Content: Appropriate Hallucination Type: None Delusion Type: None Suicidal Ideation: No Suicidal Plan: No Suicidal Intention: No Homicidal Ideation: No Homicidal Plan: No Homicidal Intention: No Insight: Fair Judgment: Impulsive Discharge/Advance Care Plan Health Problems: (1) Brief psychotic disorder Goals to promote your health * To prevent worsening of your condition and complications * To maintain your health at the optimal level Directions to meet your goals Take your medications as prescribed Follow your dietary instruction Follow activity as directed Keep your appointments as scheduled Take your immunizations and boosters as scheduled If your symptoms worsen call your PCP, if no PCP go to Urgent Care Center or Emergency Room For 28/12 questions related to your inpatient stay or results of tests pending at discharge, please contact Dr. Chucky Resendiz at Smoking is Dangerous to Your Health. Avoid second hand smoking Chucky Resendiz MD Jun 22, 2017 21:54
== END 2017-06-21 14:50 | disposition home or self-care (01) | DRG 885 ==
LOC: H260 21:40 → H4EA 22:21 → H250 06-13 13:30
PROVIDERS: ADMIT Student in an Organized Health Care Education/Training Program; ATTEND Student in an Organized Health Care Education/Training Program
DX: F23 Brief psychotic disorder (principal); G93.40 Encephalopathy, unspecified; I48.2 Chronic atrial fibrillation; A53.0 Latent syphilis, unspecified as early or late; R45.851 Suicidal ideations; I10 Essential (primary) hypertension; B37.2 Candidiasis of skin and nail; N39.0 Urinary tract infection, site not specified; F32.9 Major depressive disorder, single episode, unspecified; F41.9 Anxiety disorder, unspecified; E78.5 Hyperlipidemia, unspecified; E87.6 Hypokalemia; B96.1 Klebsiella pneumoniae [K. pneumoniae] as the cause of diseases classified elsewhere; K59.00 Constipation, unspecified; L30.4 Erythema intertrigo; W19.XXXA Unspecified fall, initial encounter; Z79.01 Long term (current) use of anticoagulants; Z86.718 Personal history of other venous thrombosis and embolism; Z86.73 Personal history of transient ischemic attack (TIA), and cerebral infarction without residual deficits
CPT/HCPCS: 36600; 70553; 80048; 80053; 80061; 80074; 80076; 81001; 82140; 82550; 82552; 82805; 83036; 83735; 83921; 84132; 84165; 84181; 84207; 84425; 84443; 85025; 85027; 85652; 86038; 86039; 86140; 86255; 86430; 86592; 86593; 86780; 87077; 87086; 87186; 93005; 93306; 95819; A9579; J1200; J1630; J1650; J2060; Q0163